=== PATIENT | male | born 1935 | race Caucasian/White ===

== ENCOUNTER 2016-07-17 | Emergency (ER) | payer OTHER ==
[~2016-07-17] VITALS: Ht 177.8 cm; Wt 97.3 kg
[~2016-07-17] MED LIST: ACET1TAB84 PO; ASPEC81 PO; CMD5 PO; LISI-729 PO; MAGN400T6 PO; METO50TA16 PO; PANT40TA PO
[2016-07-17 00:04] VITALS: TEMP 36.7; Ht 177.8 cm; Wt 97.3 kg
[2016-07-17] MEDS ORDERED: XYLOCAINE 1%/SOD BICARB 20 ML VIAL INFIL ONE (00:30)
[2016-07-17 01:29] VITALS: BP 134/77; PULSE 79; O2SAT 97
--- NOTE | 2016-07-17 01:32 | EMERGENCY ROOM VISIT NOTE ---
ED Visit Note First contact with patient: 00:08 Chief Complaint: LEFT Wrist Laceration History of Present Illness: This patient is a 81-year-old male who presents to the Emergency Department with his for evaluation of their wrist laceration. Patient sustained the laceration while talking to catch a glass that was falling. The glass shattered causing laceration to his wrist. They report a moderate amount of bleeding initially. Patient takes Coumadin daily for diagnosis of atrial fibrillation. They deny any numbness or tingling into the distal extremity. They have tried nothing for the pain. Patient rates his current discomfort as a 0/10. Patient's Tetanus status is currently up-to-date. Medications: Reviewed and discussed with the patient. Allergies: No known allergies. PMH: No pertinent past medical history. SHx: Patient is a 81-year-old male who lives locally with his . ROS: All pertinent positive and negative review of systems are appropriately documented in the History of Present Illness. Physical Exam: VITAL SIGNS - Vital signs and nursing notes were reviewed. GENERAL - 81-year-old male appearing his stated age who is in no acute distress. Communicates well with provider and answers questions appropriately. SKIN - There is a 3.0 cm long laceration noted to the distal LEFT wrist. The edges gape apart with traction. No foreign bodies appreciated. Upon further examination there are no deep structures including vessel, tendon, or bony structures appreciated. There is mild active bleeding noted. MUSCULOSKELETAL -full range of motion of the LEFT wrist, hand, and fingers appreciated with +5/5 laser cutter strength appreciated bilaterally. NEUROLOGIC - Spinothalamic tract was found to be intact with ability to discriminate sharp versus dull sensation. No sensory defects of the dorsal column were appreciated utilizing light touch for evaluation. VASCULAR - Capillary refill was brisk. ED Course: Patient was seen and evaluated by myself. Costs and benefits of performing primary wound closure versus no repair were discussed with the patient who verbalizes understanding. Verbal consent was obtained prior to performing the procedure. 2.0 cc of percent buffered lidocaine was used to anesthetize the LEFT wrist laceration. The wound was cleansed and prepped in the typical sterile fashion utilizing normal saline and Betadine. The wound was sterilely draped. Once proper anesthetization was established, the wound was further examined and demonstrated a full-thickness laceration without extension to deep structures. The wound was copiously irrigated with normal saline and Betadine. The wound was closed using 7 simple, 5-0 nylon sutures with the wound edges being well approximated. Patient tolerated the procedure well. No complications were met. The wound was cleansed and dressed with a Bacitracin dressing. Patient educated on worrisome symptoms for return visit to the Emergency Department. Patient discharged to home in good condition. Impression: LEFT Wrist Laceration Discharge Instructions: You have received 7 sutures on your LEFT Wrist. These sutures are NOT dissolvable and WILL need to be removed by a health care provider in 10-12 days. You can return to the Emergency Department or contact your Primary Care Provider to have the sutures removed. Proper wound care is essential for adequate wound healing and infection prevention. You can shower and clean the wound with soap and water. Do not scour over the wound, pat dry with a towel. Do not submerse the wound (i.e. bathe or dish wash) until the sutures have been removed. You can use an antibiotic ointment with a dressing over the wound for the next 3-4 days. After this time you may leave the wound dry and open to the air. If crust develops over the wound you can use a Q-tip to apply a 1:1 peroxide:water solution to clean the wound. Look for signs of infection of the wound including: increased pain, swelling, foul discharge, streaking, or increased temperature. If any of these are noticed you should return to the Emergency Department for further assessment and treatment. As with any laceration you may have received nerve damage to the surrounding tissues. This damage may or may not be permanent. You should keep the area covered with sunscreen for the first 6 months to 1 year when at risk for exposure to help minimize scarring. You can also use scar reducing creams or Vitamin E oil to help minimize scarring. For pain control, you can use the following [id number] medicines (if >12 yo): - Regular strength (325mg/tab) Tylenol (acetaminophen) 2 tabs every 4-6 hours as needed. Do not exceed 12 tablets in a 24 hour period. Avoid taking more than 4 grams (4000 mg) of Tylenol per day. This includes any other sources of acetaminophen you may take on a regular basis. - Regular strength (200 mg/tab) Advil (ibuprofen) 1-2 tabs every 4-6 hours as needed. Do not exceed a dose of 3200 mg per day. Return to the emergency department if your symptoms worsen despite treatment course outlined above. Current/Historical Medications Scheduled Aspirin Enteric Coated (Ecotrin Or Generic *), 81 MG PO DAILY Lisinopril (Zestril), 5 MG PO DAILY Magnesium Oxide (Mag-Ox), 400 MG PO DAILY Metoprolol Tartrate (Lopressor) (Lopressor), 75 MG PO QAM Metoprolol Tartrate (Lopressor) (Lopressor), 50 MG PO QPM Pantoprazole (Protonix), 40 MG PO BID Warfarin Sod (Coumadin *), 5 MG PO UD Scheduled PRN Acetaminophen (Tylenol Arthritis Ext Rel), 650 MG PO Q8H PRN for Pain Allergies Coded Allergies: No Known Allergies (Verified Allergy, Unknown, 03/01/06) Vital Signs Date Time Temp Pulse Resp B/P Pulse Ox O2 Delivery O2 Flow Rate FiO2 07/17/16 01:29 79 16 134/77 97 Room Air 07/17/16 00:04 36.7 84 18 164/93 100 Room Air Departure Information Impression Primary Impression: Laceration of wrist Dispostion Home / Self-Care Condition GOOD Referrals Atul Nance M.D. (PCP) Patient Instructions [facility] Additional Instructions You have received 7 sutures on your LEFT Wrist. These sutures are NOT dissolvable and WILL need to be removed by a health care provider in 10-12 days. You can return to the Emergency Department or contact your Primary Care Provider to have the sutures removed. Proper wound care is essential for adequate wound healing and infection prevention. You can shower and clean the wound with soap and water. Do not scour over the wound, pat dry with a towel. Do not submerse the wound (i.e. bathe or dish wash) until the sutures have been removed. You can use an antibiotic ointment with a dressing over the wound for the next 3-4 days. After this time you may leave the wound dry and open to the air. If crust develops over the wound you can use a Q-tip to apply a 1:1 peroxide:water solution to clean the wound. Look for signs of infection of the wound including: increased pain, swelling, foul discharge, streaking, or increased temperature. If any of these are noticed you should return to the Emergency Department for further assessment and treatment. As with any laceration you may have received nerve damage to the surrounding tissues. This damage may or may not be permanent. You should keep the area covered with sunscreen for the first 6 months to 1 year when at risk for exposure to help minimize scarring. You can also use scar reducing creams or Vitamin E oil to help minimize scarring. For pain control, you can use the following [id number] medicines (if >12 yo): - Regular strength (325mg/tab) Tylenol (acetaminophen) 2 tabs every 4-6 hours as needed. Do not exceed 12 tablets in a 24 hour period. Avoid taking more than 4 grams (4000 mg) of Tylenol per day. This includes any other sources of acetaminophen you may take on a regular basis. - Regular strength (200 mg/tab) Advil (ibuprofen) 1-2 tabs every 4-6 hours as needed. Do not exceed a dose of 3200 mg per day. Return to the emergency department if your symptoms worsen despite treatment course outlined above. Problem Qualifiers Primary Impression: Laceration of wrist Encounter type: initial encounter Laterality: left Qualified Codes: S61.512A - Laceration without foreign body of left wrist, initial encounter
== END 2016-07-17 01:35 | disposition home or self-care (01) ==
LOC: C.EDB 00:01 → C.EDA 01:35
DX: S61.512A Laceration without foreign body of left wrist, initial encounter (principal); X58.XXXA Exposure to other specified factors, initial encounter

== ENCOUNTER 2016-07-28 08:31 | Emergency (ER) | payer OTHER ==
[~2016-07-28] VITALS: Ht 177.8 cm; Wt 97.7 kg
[2016-07-28 08:37] VITALS: TEMP 36.6; Ht 177.8 cm; Wt 97.7 kg
[2016-07-28 08:56] VITALS: O2SAT 95
[2016-07-28] MEDS ORDERED: SIMV20TA2 PO (09:07)
[2016-07-28] MEDS ORDERED: MULT-506 PO (09:07)
[2016-07-28] MEDS ORDERED: ALLO100T PO (09:07)
[2016-07-28] MEDS ORDERED: ASPI81TA28 PO (09:07)
[2016-07-28] MEDS ORDERED: FURO-85 PO (09:13)
[2016-07-28] MEDS ORDERED: POTA10CA28 PO (09:13)
[2016-07-28] MEDS ORDERED: LISI5TAB PO (09:13)
[2016-07-28] MEDS ORDERED: WARF2.5T8 PO (09:19)
[2016-07-28] MEDS ORDERED: WARF5TAB7 PO (09:19)
[2016-07-28 09:23] LABS: BASO % 0.3 %; BASO ABS # 0.03 K/uL (0-0.2); COMPLETE YES; EOS % 1.2 %; HEMATOCRIT 43.6 % (42-52); LYMPH % 25.3 %; LYMPH ABS # 2.45 K/uL (1.2-3.4); MEAN CELL VOLUME 97.3 fL (80-100); MEAN CORPUSCULAR HGB CONC 33.9 g/dl (32-36); MONO % 9.1 %; NEUT % 62.1 %; PLATELET COUNT 182 K/uL (130-400); RED BLOOD COUNT 4.48 M/uL (4.7-6.1); WHITE BLOOD COUNT 9.68 K/uL (4.8-10.8)
--- NOTE | 2016-07-28 09:27 | EMERGENCY ROOM VISIT NOTE ---
History Report prepared by Sabina: Simone Glasgow Under the Supervision of: Dr. Ingris Houston D.O. First contact with patient: 08:53 Chief Complaint: ABDOMINAL PAIN Stated Complaint: ABD. PAIN AND CHEST PAIN Nursing Triage Summary: PT VERBALIZES LAST WEEK HE DEVELOPED A DULL PERSISTENT PAIN IN RIGHT FLANK, THIS MORNING AT 0600 PT C/O BILATERAL ABDOMINAL PAIN 8/10 AND FEELING LIKE HE CAN FEEL HIS HEART BEATING. PT REPORTS HX OF ATRIAL FIBRILLATION. History of Present Illness The patient is a 81 year old male who presents to the Emergency Room with complaints of persistent abdominal pain beginning about 1 week ago. He notes last week he developed a dull constant pain on his right side that worsened with twisting. This morning around 0230, he woke up with cramps in his abdomen. He went to the bathroom and had a normal bowel movement, though is unsure if there was blood in the stool. He woke again about an hour later, and reports being able to "feel his heartbeat in the epigastric area," and also had pain in his mid back and rectum at this time. The patient reports a history of a right hemicolectomy in October of 2012 due to diverticulitis, and had sever post- operative ileus. He indicates that his current pain feels like his diverticulitis pain. He denies any urinary symptoms or nausea. He reports eating a salad last night with some tomatoes. Source of History: patient Onset: about 1 week ago Position: abdomen Quality: dull, cramping Timing: other (persistent) Modifying Factors (Worsening): movement (twisting) Associated Symptoms: + back pain, No nausea, No urinary symptoms Review of Systems See HPI for pertinent positives & negatives. A total of 10 systems reviewed and were otherwise negative. Past Medical & Surgical Medical Problems: (1) History of atrial fibrillation (2) History of blood clots (3) History of heart disease (4) History of hypertension (5) History of kidney stones (6) History of shoulder arthroplasty (7) History of thoracic lung nodule Surgical Problems: (1) History of appendectomy (2) History of thoracotomy (3) History of tonsillectomy Family History Cancer Diabetes mellitus Gallbladder disease Heart disease Hypertension Kidney disease Kidney stones Lung disease Social History Smoking Status: Former Smoker Smokeless Tobacco Use: No Alcohol Use: occasionally Drug Use: none Marital Status: Housing Status: lives with significant other Occupation Status: retired Current/Historical Medications Scheduled Allopurinol (Zyloprim), 100 MG PO QAM Aspirin (Aspirin Ec), 81 MG PO QPM Lisinopril (Prinivil), 5 MG PO QAM Magnesium Oxide (Mag-Ox), 400 MG PO DAILY Metoprolol Tartrate (Lopressor) (Lopressor), 75 MG PO QAM Metoprolol Tartrate (Lopressor) (Lopressor), 50 MG PO QPM Multivitamin (Multivitamin), 1 TAB PO DAILY Pantoprazole (Protonix), 40 MG PO BID Potassium Chloride (Micro-K Ext Rel), 10 MEQ PO DAILY Simvastatin (Zocor), 20 MG PO QPM Warfarin Sod (Jantoven), 5 MG PO 6XWK Warfarin Sod (Jantoven), 2.5 MG PO WK Scheduled PRN Furosemide (Lasix), 20 MG PO DAILY PRN for WATER RETENTION Allergies Coded Allergies: No Known Allergies (Verified , 07/28/16) Physical Exam Vital Signs Date Time Temp Pulse Resp B/P Pulse Ox O2 Delivery O2 Flow Rate FiO2 07/28/16 13:09 81 18 140/98 94 Room Air 07/28/16 10:59 92 20 168/95 96 Room Air 07/28/16 08:56 95 Room Air 07/28/16 08:37 36.6 92 20 124/61 95 Room Air Physical Exam HEENT: Head - normocephalic and atraumatic Pupils are equal, round, and reactive to light. Extraocular eye muscles are intact, and sclera are anicteric. Nose - moist nasal mucosa without discharge. Mouth - moist buccal mucosa. Oropharynx is nonerythematous and there is no tonsillar exudate or edema noted. Neck: Supple; no JVD, nuchal rigidity, cervical lymphadenopathy, or auscultated bruits. Heart: Regular rate and rhythm. There is a normal S1 and S2 with no murmurs, clicks, or gallops appreciated. Lungs: Clear to auscultation bilaterally with no wheezes, rales, or rhonchi. Abdomen: Soft. Diffuse pain with palpation, mostly concentrated in the left lower quadrant. Nondistended, with good bowel sounds. There are no palpable pulsatile masses or hepatosplenomegaly. There is no guarding, rigidity, or rebound noted. Extremities: No evidence of cyanosis, clubbing, or edema. There are easily palpable peripheral pulses. Skin: warm and dry with good turgor and no rashes. Rectal: Brown stool, heme negative. Medical Decision & Procedures ER Provider Diagnostic Interpretation: Radiology results as stated below per my review and the radiologist's interpretation: CT OF THE ABDOMEN AND PELVIS WITH CONTRAST FINDINGS: Visualized portions of the lower chest demonstrate a right lower lobectomy. There is moderate cardiomegaly and extensive coronary artery calcification. No pneumatosis, free air or portal venous gas is present. Liver is somewhat dysmorphic. Note is made of a 4.6 cm hyperdense focus within the medial segment of the left lobe. The right lobe is atrophic. The gallbladder is contracted and contains small stones. The spleen, adrenal glands, pancreas and kidneys are unremarkable. There is an 8 mm cyst within the midpole of the left kidney. There is no hydronephrosis. There is evidence for a right colon resection. There is no evidence for a bowel obstruction. Left colon diverticulosis is noted without evidence for acute diverticulitis. A small fat-containing ventral hernias noted. There is a ventral mesh. The prostate is surgically absent. No suspicious osseous lesions are present. Note is made of apparent gastric wall thickening. This could be due to underdistention. IMPRESSION: 1. Colonic diverticulosis without evidence for acute diverticulitis. Status post right hemicolectomy. No bowel obstruction. 2. Wall thickening of the stomach. This is nonspecific and could be due to underdistention although gastritis could appear similar. 3. Cholelithiasis. No CT evidence of acute cholecystitis. 4. 4.6 cm hyperdense focus within the medial segment of the liver. This may reflect fatty sparing. A mass is considered less likely however a follow-up nonemergent MRI of the liver is recommended. 5. Moderate cardiomegaly and extensive coronary artery calcification. Electronically signed by: Renzo Whiting M.D. 07/28/2016 12:20 PM Dictated Date/Time: 07/28/2016 12:08 PM Laboratory Results 07/28/16 08:50 Red Blood Count 4.48, Mean Corpuscular Volume 97.3, Mean Corpuscular Hemoglobin 33.0, Mean Corpuscular Hemoglobin Concent 33.9, Mean Platelet Volume 12.0, Neutrophils (%) (Auto) 62.1, Lymphocytes (%) (Auto) 25.3, Monocytes (%) (Auto) 9.1, Eosinophils (%) (Auto) 1.2, Basophils (%) (Auto) 0.3, Neutrophils # (Auto) 6.01, Lymphocytes # (Auto) 2.45, Monocytes # (Auto) 0.88, Eosinophils # (Auto) 0.12, Basophils # (Auto) 0.03 07/28/16 08:50 Test 07/28/16 08:50 07/28/16 09:27 White Blood Count 9.68 K/uL (4.8-10.8) Red Blood Count 4.48 M/uL (4.7-6.1) Hemoglobin 14.8 g/dL (14.0-18.0) Hematocrit 43.6 % (42-52) Mean Corpuscular Volume 97.3 fL (80-100) Mean Corpuscular Hemoglobin 33.0 pg (25-34) Mean Corpuscular Hemoglobin Concent 33.9 g/dl (32-36) Platelet Count 182 K/uL (130-400) Mean Platelet Volume 12.0 fL (7.4-10.4) Neutrophils (%) (Auto) 62.1 % Lymphocytes (%) (Auto) 25.3 % Monocytes (%) (Auto) 9.1 % Eosinophils (%) (Auto) 1.2 % Basophils (%) (Auto) 0.3 % Neutrophils # (Auto) 6.01 K/uL (1.4-6.5) Lymphocytes # (Auto) 2.45 K/uL (1.2-3.4) Monocytes # (Auto) 0.88 K/uL (0.11-0.59) Eosinophils # (Auto) 0.12 K/uL (0-0.5) Basophils # (Auto) 0.03 K/uL (0-0.2) RDW Standard Deviation 50.0 fL (36.4-46.3) RDW Coefficient of Variation 14.0 % (11.5-14.5) Immature Granulocyte % (Auto) 2.0 % Immature Granulocyte # (Auto) 0.19 K/uL (0.00-0.02) Prothrombin Time 30.8 SECONDS (9.0-12.0) Prothromb Time International Ratio 2.8 (0.9-1.1) Activated Partial Thromboplast Time 38.3 SECONDS (21.0-31.0) Partial Thromboplastin Ratio 1.5 Anion Gap 8.0 mmol/L (3-11) Est Creatinine Clear Calc Drug Dose 73.1 ml/min Estimated GFR () 86.8 Estimated GFR (Non- 74.9 BUN/Creatinine Ratio 25.9 (10-20) Calcium Level 8.6 mg/dl (8.5-10.1) Total Bilirubin 0.7 mg/dl (0.2-1) Direct Bilirubin 0.2 mg/dl (0-0.2) Aspartate Amino Transf (AST/SGOT) 52 U/L (15-37) Alanine Aminotransferase (ALT/SGPT) 37 U/L (12-78) Alkaline Phosphatase 53 U/L (45-117) Total Protein 7.0 gm/dl (6.4-8.2) Albumin 3.9 gm/dl (3.4-5.0) Urine Color YELLOW Urine Appearance CLEAR (CLEAR) Urine pH 6.5 (4.5-7.5) Urine Specific [place] 1.021 (1.000-1.030) Urine Protein NEG (NEG) Urine Glucose (UA) NEG (NEG) Urine Ketones NEG (NEG) Urine Occult Blood NEG (NEG) Urine Nitrite NEG (NEG) Urine Bilirubin NEG (NEG) Urine Urobilinogen NEG (NEG) Urine Leukocyte Esterase NEG (NEG) Laboratory results per my review. Medications Administered Medications (Trade) Dose Ordered Sig/Jodie Route Start Time Stop Time Status Last Admin Dose Admin Sodium Chloride (Nss 500ml) 500 ml @ 999 mls/hr Q31M STAT IV 07/28/16 12:25 07/28/16 12:55 DC 07/28/16 12:29 999 MLS/HR Procedure Medications Ordered: 1225: Ordered NSS 500 ml @ 999 mls/hr IV. ECG Indication: abdominal pain Rate (beats per minute): 95 Rhythm: atrial fibrillation Findings: no acute ischemic change, no ectopy ED Course 0903: Past medical records reviewed. The patient was evaluated in room B8. A complete history and physical exam was performed. An IV lock was initiated and labs are drones above. A twelve-lead EKG was obtained as described above. 1045: The patient declines wanting anything for pain. 1052: I reassessed the patient. He feels good, and is almost finished with the CT prep. 1225: Ordered NSS 500 ml @ 999 mls/hr IV. The patient went for CT scan as described above. 1230: I reassessed the patient and he feel much better. He had a bowel movement after the oral contrast. 1240: Upon reevaluation, the patient is doing well. I discussed findings and results with the patient. He verbalized agreement of the treatment plan. The patient was discharged home. Medical Decision The patient is a 81 year old male who presents to the Emergency Room with complaints of persistent abdominal pain beginning about 1 week ago. Differential Diagnoses: Diverticulitis, colitis, ureteral colic, pyelonephritis , cystitis, aortic dissection, ileus, and small bowel obstruction. Laboratory Interpretations: UA is clear; BUN is 25; creatinine is 0.9; glucose is 118; normal LFTs; no leukocytosis; stable H&H; INR is 2.8. Patient presents to the emergency department with crampy abdominal pain. CT scan was unremarkable. The patient seemed to have some relief of the discomfort after multiple bowel movements from the prep. However, the patient did state that he did pass some blood and thought that may be secondary to hemorrhoid. I may have irritated hemorrhoid when I did his rectal exam. I've asked the patient to take a bland diet and rest over the next couple of days. He admits that he drinks a moderate amount of wine and asked if he should stop this. I did splint him that his AST was slightly elevated and that he should probably drink a little less wine. He was told to take a bland diet and follow-up with his PCP with regards to some findings on CT scan. Impression Primary Impression: Diffuse abdominal pain Scribe Attestation The scribe's documentation has been prepared under my direction and personally reviewed by me in its entirety. I confirm that the note above accurately reflects all work, treatment, procedures, and medical decision making performed by me. Departure Information Dispostion Home / Self-Care Referrals Atul Nance M.D. (PCP) Patient Instructions [facility] Additional Instructions Rest Take a bland diet. Limit the wine as directed. Return to the ER if symptoms worsen. Follow up with PCP if symptoms persist You will need follow up for findings in the liver
[2016-07-28 09:30] LABS: BUN/CREATININE RATIO 25.9 (10-20); CALCIUM 8.6 mg/dl (8.5-10.1); CREATININE 0.96 mg/dl (0.60-1.40); POTASSIUM 4.5 mmol/L (3.5-5.1)
[2016-07-28 09:46] LABS: URINE APPEARANCE CLEAR (CLEAR); URINE BILIRUBIN NEG (NEG); URINE COLOR YELLOW; URINE NITRITE NEG (NEG); URINE PH 6.5 (4.5-7.5); URINE SPECIFIC GRAVITY 1.021 (1.000-1.030); UROBILINOGEN NEG (NEG)
[2016-07-28 09:49] LABS: MANUAL MICROSCOPIC REQUIRED? NO; REVIEW REQ? NO
[2016-07-28] MEDS ORDERED: OPTIRAY 320 IV PRN (10:00)
[2016-07-28 11:06] LABS: INR 2.8 (0.9-1.1); PARTIAL THROMBOPLASTIN RATIO 1.5; PROTHROMBIN TIME (PATIENT) 30.8 SECONDS (9.0-12.0)
--- NOTE | 2016-07-28 12:22 | DIAGNOSTIC IMAGING REPORT ---
CT OF THE ABDOMEN AND PELVIS WITH CONTRAST CLINICAL HISTORY: Left-sided abdominal pain. Evaluate for diverticulitis. COMPARISON STUDY: PET/CT June 04, 2006. TECHNIQUE: Following IV administration of 94 mL of Optiray-320, axial images of the abdomen and pelvis were obtained from the lung bases to the proximal femurs. Images were reviewed in the axial, sagittal, and coronal planes. IV contrast was administered without complication. CT DOSE: 1018.63 mGy.cm FINDINGS: Visualized portions of the lower chest demonstrate a right lower lobectomy. There is moderate cardiomegaly and extensive coronary artery calcification. No pneumatosis, free air or portal venous gas is present. Liver is somewhat dysmorphic. Note is made of a 4.6 cm hyperdense focus within the medial segment of the left lobe. The right lobe is atrophic. The gallbladder is contracted and contains small stones. The spleen, adrenal glands, pancreas and kidneys are unremarkable. There is an 8 mm cyst within the midpole of the left kidney. There is no hydronephrosis. There is evidence for a right colon resection. There is no evidence for a bowel obstruction. Left colon diverticulosis is noted without evidence for acute diverticulitis. A small fat-containing ventral hernias noted. There is a ventral mesh. The prostate is surgically absent. No suspicious osseous lesions are present. Note is made of apparent gastric wall thickening. This could be due to underdistention. IMPRESSION: 1. Colonic diverticulosis without evidence for acute diverticulitis. Status post right hemicolectomy. No bowel obstruction. 2. Wall thickening of the stomach. This is nonspecific and could be due to underdistention although gastritis could appear similar. 3. Cholelithiasis. No CT evidence of acute cholecystitis. 4. 4.6 cm hyperdense focus within the medial segment of the liver. This may reflect fatty sparing. A mass is considered less likely however a follow-up nonemergent MRI of the liver is recommended. 5. Moderate cardiomegaly and extensive coronary artery calcification. Electronically signed by: Renzo Whiting M.D. 07/28/2016 12:20 PM Dictated Date/Time: 07/28/2016 12:08 PM
[2016-07-28] MEDS ORDERED: SODIUM CHLORIDE 0.9% 500ML 500 ML IV STA (12:25)
[2016-07-28 13:09] VITALS: BP 140/98; PULSE 81; O2SAT 94
== END 2016-07-28 13:10 | disposition home or self-care (01) ==
LOC: C.EDB 08:33
DX: R10.30 Lower abdominal pain, unspecified (principal); I48.91 Unspecified atrial fibrillation; I10 Essential (primary) hypertension; I51.9 Heart disease, unspecified; Z87.440 Personal history of urinary (tract) infections; Z86.2 Personal history of diseases of the blood and blood-forming organs and certain disorders involving the immune mechanism; Z98.890 Other specified postprocedural states; Z87.891 Personal history of nicotine dependence; Z79.82 Long term (current) use of aspirin; Z79.01 Long term (current) use of anticoagulants; Z79.899 Other long term (current) drug therapy; Z80.9 Family history of malignant neoplasm, unspecified; Z83.3 Family history of diabetes mellitus; Z83.79 Family history of other diseases of the digestive system; Z82.49 Family history of ischemic heart disease and other diseases of the circulatory system; Z84.1 Family history of disorders of kidney and ureter

== ENCOUNTER 2018-06-04 11:17 | Inpatient (IN) ==
[2018-06-04] MEDS ORDERED: ALBUT/IPRATROP 3MG/0.5MG NEB 3 ML VIAL INH STA (11:47)
[2018-06-04] MEDS ORDERED: SODIUM CHLORIDE 0.9% 500 ML IV SCH (12:00)
[2018-06-04 12:57] LABS: Hematocrit (blood only) 23.3 % (42-52); Hemoglobin 8.1 g/dL (14.0-18.0); Mean Corpuscular Hgb Conc 34.8 g/dL (32-36); Mean Corpuscular Volume 99.1 fL (80-100); Nucleated RBC # (auto) 0.02 K/uL (0-0); Platelet Count 290 K/uL (130-400); RDW Coefficient of Variation 17.4 % (11.5-14.5); RDW Standard Deviation 60.6 fL (36.4-46.3); Red Blood Count 2.35 M/uL (4.7-6.1); White Blood Count 2.02 K/uL (4.8-10.8)
[2018-06-04 13:03] LABS: Albumin Level 2.8 gm/dl (3.4-5.0); BUN Creatinine Ratio 16.7 (10-20); Creatinine Clr Calc Pharmacy 86.8 ml/min; Est GFR (African American) 97.8; Est GFR (Non-African American) 84.4; Magnesium 1.9 mg/dl (1.8-2.4)
[2018-06-04 13:04] LABS: iSTAT Creatinine 0.8 mg/dl (0.6-1.3); iSTAT Hemoglobin 6.8 g/dl (14.0-18.0); iSTAT Ionized Calcium 1.12 mmol/l (1.12-1.32)
[2018-06-04 13:07] LABS: Partial Thromboplastin Ratio 1.6; Partial Thromboplastin Time 44.7 Seconds (21.0-31.0); Prothrombin Time 44.5 Seconds (9.0-12.0)
[2018-06-04 13:08] LABS: Albumin Globulin Ratio 0.7 (0.9-2); Bilirubin,Total 0.9 mg/dl (0.2-1); Globulin 4.2 gm/dl (2.5-4.0); Troponin I 0.017 ng/ml (0-0.045)
[2018-06-04 13:11] LABS: Base Excess VBG 0.2 mEq/L; HCO3 VBG 25 mmol/L; PCO2 VBG 40 mmHg (38-50); PO2 VBG 22 mmHg; pH VBG 7.41 (7.36-7.41)
[2018-06-04 13:15] LABS: Oxygen Saturation VBG < 60.0 %
[2018-06-04 13:18] LABS: D Dimer 560 ug/L FEU (0-500); INR 4.9 (0.9-1.1)
[2018-06-04 13:20] LABS: Anisocytosis Present; Hypogranular Neutrophils 1+; Poikilocytosis Present
[2018-06-04 13:23] LABS: ALC (manual) 1.77 K/uL (1.2-3.4); Lymphocytes # (manual) 1.25 K/uL (1.2-3.4); Lymphocytes % (manual) 61.9 %; Monocytes # (manual) 0.16 K/uL (0.11-0.59); Neutrophils % (manual) 4.4 %; Reactive Lymphocytes # (manual) 0.52 K/uL
--- NOTE | 2018-06-04 13:37 | XRay Report ---
XR chest 1V portable CLINICAL HISTORY: 82 years-old Male presenting with Dyspnea. TECHNIQUE: Portable upright AP view of the chest was obtained. COMPARISON: 04/20/[address] from 03/06/2018. FINDINGS: Left subclavian Mediport terminates in the lower SVC. Atherosclerosis of aortic arch. Cardiac silhoue tte moderately enlarged. Elevation of the right hemidiaphragm with postsurgical changes of the right lung base. Added density of the lungs bilaterally and diffusely superimposed on coarse and underlying lung markings. Bronchial wall thickening suggested. Persistent right pleural thickening or small ple ural effusion. New trace left pleural effusion. Degenerative changes of the spine. Right shoulder art hroplasty. Advanced degenerative changes of the left glenohumeral joint. IMPRESSION: 1. Interval development of diffuse added density of the lungs concerning for diffuse infiltrates. Th is may represent cardiogenic or noncardiogenic edema or, less likely, an atypical pneumonia. This lanie ears superimposed on underlying chronic lung disease. 2. Cardiomegaly. 3. Postsurgical changes of right lower lobectomy. Electronically signed by: Raj Mesa M.D. 06/04/2018 1:35 PM
[2018-06-04] MEDS ORDERED: OPTIRAY 320 125ml IV PRN (14:07)
[2018-06-04 14:13] LABS: Appearance Urine Clear (Clear); Bilirubin Urine Negative (Negative); Blood Urine Negative (Negative); Color Urine Yellow; Glucose Urine UA Negative (Negative); Ketones Urine Negative (Negative); Leukocyte Esterase Urine Negative (Negative); Nitrite Urine Negative (Negative); Protein Urine Negative (Negative); Specific Gravity Urine 1.013 (1.000-1.030); Urobilinogen Urine Negative (Negative); pH Urine 6.5 (4.5-7.5)
--- NOTE | 2018-06-04 14:23 | CT Scan Report ---
CT angio chest PE protocol CLINICAL HISTORY: 82 years-old Male presenting with MN ^CTR RM A3 ^+dimer, pink sputum, SOB. TECHNIQUE: Multidetector CT angiography of the chest was performed after administration of intravenou s contrast. 3-D volumetric and/or maximum intensity projection (MIP) images were subsequently reconst ructed for review. IV contrast: 94 mL of Optiray 320. One or more dose lowering techniques were used consistent with the principles of ALARA (as low as reasonably achievable), including automatic exposu re control, mA or kV adjustment to individual patient size, and/or use of iterative reconstruction. COMPARISON: 03/06/2018. CT DOSE (mGy.cm): The estimated cumulative dose is 530.31 mGy.cm. FINDINGS: Ground Operations Crew Member topogram: Right shoulder arthroplasty. Left subclavian Mediport. Elevation of the right hemidia phragm. Pulmonary vasculature: The study is adequate for assessment of the pulmonary vascular tree. No filling defect within the pul monary arteries to suggest embolus. Main pulmonary artery is not enlarged. No flattening of the inter ventricular septum. No intracardiac filling defect. Reflux of contrast into the intrahepatic IVC. Remaining chest: Soft tissues: Normal thyroid and thoracic inlet. Few prominent mediastinal lymph nodes, the largest i n the prevascular and aortopulmonary regions, measuring up to 9 mm. Atherosclerosis of the aorta. Mul tichamber enlargement of the heart. Coronary artery and aortic valve calcification. Small bilateral p leural effusions. The right pleural effusion may be loculated. No pericardial effusion. Cholelithiasi s. Lungs and airways: No pneumothorax. Central airways patent. Postsurgical changes of right lower lobec josefina. Mild diffuse bronchial wall thickening. Pulmonary arteries mildly enlarged relative to adjacent bronchi. Diffuse centrilobular septal thickening. Multifocal patchy predominantly groundglass opacit ies with a peripheral predominance affecting all residual lobes. Prominent mosaic attenuation. Musculoskeletal: Degenerative changes of the spine. Right shoulder arthroplasty. Degenerative changes of the left glenohumeral joint. IMPRESSION: 1. No evidence of pulmonary embolus. 2. Patchy diffuse infiltrates affecting all residual lobes. This is nonspecific appearance with a wi de differential. Differential considerations include an atypical infectious etiology, drug reaction, cardiogenic or noncardiogenic pulmonary edema, or, less likely, metastatic disease. 3. Enlarged pulmonary arteries relative to adjacent bronchi with interlobular septal thickening sugg ests venolymphatic congestion. 4. Bilateral small pleural effusions, likely loculated on the right. 5. Postsurgical changes of right lower lobectomy. 6. Cholelithiasis. Electronically signed by: Raj Mesa M.D. 06/04/2018 2:21 PM
[2018-06-04] MEDS ORDERED: PIPERACILL/TAZOBAC CONSULT ACTIVE PRN ×2 (14:29→19:10)
[2018-06-04] MEDS ORDERED: PIPERACILLIN/TAZOBACTAM 4.5 GM/120 ML BAG IV ONE (14:29)
[2018-06-04] MEDS ORDERED: SODIUM CHLORIDE 0.9% 250 ML IV PRN ×2 (14:29→19:10)
--- NOTE | 2018-06-04 16:04 | History & Physical Report ---
Date of Service June 04, 2018 Assessment & Plan (1) SIRS (systemic inflammatory response syndrome): (2) Acute respiratory failure with hypoxia: This is an 82-year-old male who has a significant past medical history of chronic atrial fibrillation on warfarin, HTN, HLD, gout, Gilman's esophagus, history of right lung adeno CA status post right lower lobe lobectomy in 2007, history of prostate cancer, recently diagnosed MDS s/p decitabine x 2, pancytopenia who presents to [facility] at the recommendation of finishing tunnel operator secondary to low blood count. Refer to HPI for past 3 month course of hospitalization, follow up CT x 2, heme/onc and telemedicine pulmonary consult Upon arrival patient placed on 2 L O2 given saturations 88% hgb outpt 6.9, POC repeat 6.9, repeat CBC 8.1 Transfuse PRBC x 1 ordered CXR/CT scan obtained: Negative for PE, but concerning for diffuse multilobar pulmonary opacities, small bilateral pleural effusions likely loculated on right, enlarged pulmonary arteries concerning for venolymphatic congestion Negative for influenza BNP mildly elevated 2742 Given patient's recent diagnosis of pneumonia back in February he was placed on empiric IV Zosyn ABG, Lactate WNL, procalcitonin pending Patient met SIRS criteria on admission WBC 2.02, RR > 24, HR > 90 Lactate WNL Given Pt hx of MDS/ Afib could explain SIRS; however infection still in differential [employer] IV zosyn given, MRSA swab pending DDX: Infectious pneumonia, infectious/inflammatory pneumonitis, CHF, connective tissue disorder, malignancy, metastatic disease -admit patient to med/surg telemetry -consult pulmonology, given significance of CT scan and interval worsening patient may benefit from bronchoscopy to determine etiology of opacities -continue IV antibiotic zosyn for now until infectious etiology entirely ruled out, blood cultures pending -? CHF component will order IV Lasix 40mg BID for elevated BNP, pulm vasc congestion -Xopenex neb q4hwa and incentive spirometry -echocardiogram in a.m. -supplemental O2 as needed (3) RIOS (dyspnea on exertion): -plan as above, likely multifactorial (4) Ground glass opacity present on imaging of lung: -plan as above (5) Myelodysplastic syndrome: -Follows Dr. Colin hematology oncology will consult hematology given neutropenia ? if candidate for neupogen -Status post decitabine x2 cycles, last given 05/11/18 -Hemoglobin upon arrival 6.9, repeat 8.1 -Transfuse 1 unit PRBC -Monitor CBC closely, neutropenic precautions -Continue Noxafil and acyclovir prophylaxis (6) Neutropenia: -neutropenic precautions -ANC 0.09, follow cbc (7) Chronic atrial fibrillation: -patient mostly rate controlled but slight elevation in HR given underlying process -continue metoprolol and warfarin -INR supra therapeutic, hold warfarin the evening -repeat INR in a.m. -monitor closely on telemetry (8) Hypertension: -blood pressure elevated upon admission -continue lisinopril (9) HLD (hyperlipidemia): -continue crestor (10) Barretts esophagus: -continue PPI (11) DVT prophylaxis: -INR supratherapeutic, 4.9 -Hold Coumadin this evening -Repeat INR in a.m. Disposition: to be determined Follow up: PCP Dr. Nance upon discharge as well as heme/onc Dr. Colin and appropriate follow up with Pulmonology History of Present Illness Chief Complaint: RIOS x 3 months. Primary Care Provider: Atul Nance This is an 82-year-old male who has a significant past medical history of chronic atrial fibrillation on warfarin, HTN, HLD, gout, Gilman's esophagus, history of right lung adeno CA status post right lower lobe lobectomy in 2007, history of prostate cancer, recently diagnosed MDS s/p decitabine x 2, pancytopenia who presents to [facility] at the recommendation of finishing tunnel operator secondary to low blood count. and son at bedside. Patient has been receiving intermittent PRBC transfusion secondary to MDS. Has received 4 in the past month, most recently 2 days ago. Patient was recently confined at [facility] 03/02/18-03/11/19 secondary to PNA treated with IV antibiotics. CT scan at time concerning for patchy groundglass opacities and underlying left lower lobe pneumonia. Treated with IV zosyn and transitioned to IV levaquin and oral augmentin. Completed 10 day course. At that time patient was noted to be neutropenic in which he underwent MDS flow cytometry. He was later subsequently diagnosed with MDS and follows outpatient hematology Dr. Colin. Since diagnosis he had received 2 cycles of decitabine, last given 05/11/18. Further he has been taking daily Augmentin twice a day, acyclovir 400 mg twice a day and Noxafil 300 mg daily for prophylaxis given neutropenia. Unfortunately since February 2018 patient has been experiencing profound dyspnea on exertion which has limited and effected patient's QOL. Gets short of breath with minimal exertion, "like walking to the bathroom." RIOS has progressively been worsening since February. Son notes that usually after receiving 1 unit of PRBC it tends to improve his dyspnea on exertion. He last received transfusion Friday and sx have not improved. He was noted in outpatient setting today to have hgb of 6.9 therefore referred to ED. Including RIOS patient also complaints of intermittent productive cough of pink sputum. He denies fever, chills, sweats, lightheadedness, dizziness, syncope, chest pain, palpitations, shortness of breath at rest, nausea, vomiting, diarrhea, change in bowel or bladder habits. states appetite is very good. Denies any weight loss or gain. Denies any significant swelling. He did trial albuterol inhaler that was prescribed by account executive Dr. Mauricio ([facility]) in which he did note improvement with shortness of breath temporarily. In outpatient setting he has had repeat CT scan given significant PNA in 02/2018. Repeat CT Scan 04/17/18: IMPRESSION: 1. Persistent ground-glass opacities and patchy nodular airspace disease in both lower lung zones, mildly improved in the left lower lobe, and may represent persistent infectious or inflammatory process, such as pneumonia or pneumonitis. 2. Postsurgical changes in the right lung with a new tiny right pleural effusion. 3. Other findings, as above. Repeat 05/16/18 1. Progression of the infectious/inflammatory ground-glass opacity and subpleural nodularity seen in both upper lobes compared to the prior study. The involvement of the lower lobes is about the same. 2. Stable surgical changes from right lower lobectomy. No definite findings for recurrent or metastatic disease. 3. Gallstones. Given progression of lung disease a tele pulm consult [place] [facility] [place] established by outpatient provider Dr. Colin. At that time recommendations were to continue with blood transfusion as ordered. He was also prescribed albuterol inhaler and recommend trial given air trapping noted on CT. Patient started this yesterday and noted improved with inhaler. Recommending scheduling bronchoscopy with brushing and transbronchial biopsy to further evaluate pulmonary opacities. Recommend updating echocardiogram, most recently done 08/2017 which was a negative dobutamine stress echo, normal EF, AV sclerosis and moderate MR and mild TR noted. Allergies Allergy/AdvReac Type Severity Reaction Status Date / Time No Known Allergies Allergy Verified 06/04/18 12:27 Home Medications Home Medications Medication Instructions Recorded Confirmed Type allopurinol 100 mg PO DAILY 03/02/18 06/04/18 History furosemide 20 mg PO DAILY PRN 03/02/18 06/04/18 History lisinopril 5 mg PO DAILY 03/02/18 06/04/18 History magnesium oxide 400 mg PO QAM 03/02/18 06/04/18 History metoprolol tartrate 50 mg PO QPM 03/02/18 06/04/18 History metoprolol tartrate 75 mg PO QAM 03/02/18 06/04/18 History pantoprazole [Protonix] 40 mg PO BID 03/02/18 06/04/18 History potassium chloride 10 meq PO DAILY PRN 03/02/18 06/04/18 History acyclovir 400 mg PO BID 04/15/18 06/04/18 History warfarin 5 mg PO SUMOWETHFR #0 04/20/18 06/04/18 History amoxicillin-pot clavulanate 1 tab PO Q12H 05/21/18 06/04/18 History [Augmentin] posaconazole [Noxafil] 300 mg PO DAILY 05/21/18 06/04/18 History aspirin 81 mg PO DAILY 06/04/18 06/04/18 History decitabine [Dacogen] 50 mg IV DAILY 06/04/18 06/04/18 History rosuvastatin 10 mg PO DAILY 06/04/18 06/04/18 History warfarin 2.5 mg PO TUSA 06/04/18 06/04/18 History Past Med/Surg History Medical History HLD (hyperlipidemia) Myelodysplastic syndrome Recently diagnosed via bone marrow biopsy. Reason for port placement. History of kidney stones (Chronic) 1983 Chronic atrial fibrillation (Chronic) History of prostate cancer (Resolved) Status post prostatectomy History of lung cancer (Resolved) R lung adenocarcinoma T1 N0 M0 status post right lower lobe lobectomy 05/08/07 Barretts esophagus (Chronic) Hypertension (Chronic) History of pneumonia 02/2018 Surgical History History of vitrectomy 3 SURGERIES INCLUDING SCLERAL BUCKLE (LEFT EYE) FOR DETACHED RETINA History of circumcision AN ADULT History of kidney surgery OPEN INCISION FOR LARGE KIDNEY STONE EXTRACTION. H/O umbilical hernia repair (Chronic) S/P lobectomy of lung (Chronic) RLL due to cancer 05/2007 S/P tonsillectomy and adenoidectomy (Chronic) History of appendectomy (Chronic) Status post total shoulder arthroplasty (Chronic) S/P left knee arthroscopy (Chronic) H/O hemicolectomy (Chronic) Due to diverticulitis History of total left knee replacement (Chronic) H/O prostatectomy (Chronic) History of appendectomy (Inactive) History of thoracotomy (Inactive) History of tonsillectomy (Inactive) Family History Other Family history non-contributory Social History Preferred Language: Liberian Communication Ability: Effective Perpetual Inventory Clerk Required: No Beliefs That Will Affect Care: None marital status: Current Living Situation: Spouse current occupational status: retired Other Information That Helps Us Care for You: No Feels Safe at Home: Yes Safety Concerns: Feels Safe At This Time Smoking Status: Former smoker Hx Alcohol Use: No Hx Substance Use: No Review of Systems All systems reviewed & are unremarkable except as noted in HPI & below Physical Exam Vital Signs (Past 24 Hours): Last Vital Signs Temp 36.8 C 06/04/18 11:19 Pulse 98 H 06/04/18 15:31 Resp 24 06/04/18 15:31 BP 145/105 H 06/04/18 15:31 Pulse Ox 90 06/04/18 15:31 Physical Exam: Gen: WD/WN, M, Elderly, NAD, sitting up in bed, pleasant, conversing easily Head: Normocephalic, Atraumatic Eyes: Sclera normal, no conjunctival injection, PERRLA, EOMI ENT: Gross hearing intact, normal pharynx, mucous membranes moist Neck: supple, no adenopathy, No JVD, no bruit, Resp: Clear to auscultation b/l on O2 via NC, minimal bibasilar crackles, no wheeze, rhonchi. Normal insp/exp effort, no accessory muscle use CV: Irregular rate, irregular rhythm, no murmur, rub, gallop, or ectopy Abd: +BS x 4, soft, nontender, nondistended Musculoskeletal: moves extremities active rom x 4, strength intact, good student ambassador strength Extremities:+ 1 pretibial edema b/l Skin: warm, moist, no rash, negative turgor, cap refill < 2sec Neuro: Alert and oriented x 3, speech normal, good mood/affect, cran nerve 2-12 intact grossly : deferred Results & Data Laboratory Results Short CBC 06/04/18 Range/Units 12:33 WBC 2.02 L (4.8-10.8) K/uL Hgb 8.1 L (14.0-18.0) g/dL Hct 23.3 L (42-52) % Plt Count 290 (130-400) K/uL BMP 06/04/18 12:33 Sodium 137 Potassium 4.0 Chloride 105 Carbon Dioxide 27 BUN 13 Creatinine 0.80 Glucose 101 H Calcium 8.0 L Cardiac Enzymes 06/04/18 Range/Units 12:33 Troponin I 0.017 (0-0.045) ng/ml Liver Function 06/04/18 Range/Units 12:33 Total Bilirubin 0.9 (0.2-1) mg/dl AST 45 H (15-37) U/L ALT 63 (12-78) U/L Alkaline Phosphatase 82 (45-117) U/L Albumin 2.8 L (3.4-5.0) gm/dl Urine 06/04/18 Range/Units 14:00 Urine Color Yellow Urine Appearance Clear (Clear) Urine pH 6.5 (4.5-7.5) Ur Specific Longs 1.013 (1.000-1.030) Urine Protein Negative (Negative) Urine Glucose (UA) Negative (Negative) Diagnostic Findings Chest CT: IMPRESSION: 1. No evidence of pulmonary embolus. 2. Patchy diffuse infiltrates affecting all residual lobes. This is nonspecific appearance with a wide differential. Differential considerations include an atypical infectious etiology, drug reaction, cardiogenic or noncardiogenic pulmonary edema, or, less likely, metastatic disease. 3. Enlarged pulmonary arteries relative to adjacent bronchi with interlobular septal thickening suggests venolymphatic congestion. 4. Bilateral small pleural effusions, likely loculated on the right. 5. Postsurgical changes of right lower lobectomy. 6. Cholelithiasis. CXR: IMPRESSION: 1. Interval development of diffuse added density of the lungs concerning for diffuse infiltrates. This may represent cardiogenic or noncardiogenic edema or, less likely, an atypical pneumonia. This appears superimposed on underlying chronic lung disease. 2. Cardiomegaly. 3. Postsurgical changes of right lower lobectomy. Medications Administered Ioversol (Optiray 320 125ml) 94 ml IV ONCE PRN PRN Reason: Interaction Checking Stop: 06/08/18 14:06 Last Admin: 06/04/18 14:08 Dose: 94 ml Documented by: [id number] Discontinued Medications Albuterol (Duoneb) 3 ml INH NOW STA Stop: 06/04/18 11:48 Last Admin: 06/04/18 12:16 Dose: 3 ml Documented by: [id number] Sodium Chloride (Nss) 500 mls @ 999 mls/hr IV .Q31M DENISA Stop: 06/04/18 12:30 Last Infusion: 06/04/18 13:31 Dose: 0 mls/hr Documented by: [id number] Admin: 06/04/18 12:54 Dose: 999 mls/hr Documented by: [id number] Piperacillin Sod/Tazobactam Sod (Zosyn) 4.5 gm in 120 mls @ 240 mls/hr IV NOW ONE Stop: 06/04/18 14:58 Last Infusion: 06/04/18 16:31 Dose: 0 mls/hr Documented by: [id number] Admin: 06/04/18 15:33 Dose: 240 mls/hr Documented by: [id number] ECG Rate (beats per minute): 83 Rhythm: atrial fibrillation Findings: + nonspecific-ST abn and + prolonged QT (458 ms) Code Status & VTE Plan Code Status DNR Discussed with family at bedside VTE Prophylaxis Plan VTE Prophylaxis will be ordered: Yes Reason for no VTE drug order: Contraindicated (Patient already on Coumadin, supratherapeutic) Supervising Physician Co-Signing Physician Notes Patient is an 82-year-old male with multiple comorbidities presents with history of abnormal labs on recommendation by his finishing tunnel operator. Patient complains of worsening dyspnea on exertion. Also reports intermittent productive cough. Please review HPI for complete details of presentation and history. He was noted to have neutropenia, anemia, elevated d-dimer, INR. CT showed no acute PE, findings suggestive of multilobular pulmonary opacities, bilateral pleural effusion-likely loculated on the right side, congestion. On exam patient is moderately built and nourished, no distress, lungs-decreased breath sounds on right side, scattered rails bilaterally, irregularly irregular rhythm, no murmur, abdomen is soft,+ umbilical hernia,AAOX3, no focal deficits, 2+ bilateral lower extremity edema. Patient's shortness of breath could be multifactorial secondary to volume overload, could have underlying pneumonitis, anemia, metastatic disease given history of lung cancer. Patient is admitted under telemetry unit. Plan to give IV dye diuretics, nebs, supplemental oxygen as needed, check echo, pulmonary consulted. Empirically cover with antibiotics given neutropenia. Transfuse PRBC as needed. Replace magnesium. I personally reviewed the record. Patient is interviewed and examined at bedside. Patient's care is coordinated with Deana Del Valle PA-C. Please refer to the documentation above for details of patient's presentation and for discussion of other issues. (1) Neutropenia Neutropenia type: other Qualified Code(s): D70.8 - Other neutropenia (2) Hypertension Hypertension type: essential hypertension Qualified Code(s): I10 - Essential (primary) hypertension
[2018-06-04 16:17] LABS: Influenza A virus by PCR Neg for Influ A (Neg); Influenza B virus by PCR Neg for Influ B (Neg)
[2018-06-04] MEDS ORDERED: ONDANSETRON INJ 2 MG/ML 2 ML VIAL IV PRN (19:10)
[2018-06-04] MEDS ORDERED: POLYETHYLENE (MIRALAX) 17 GM PACK PO PRN (19:10)
[2018-06-04] MEDS ORDERED: XOPENEX/ATROVENT 0.63mg/0.5MG NEB COMBO NEB SCH (19:10)
[2018-06-04] MEDS ORDERED: MAGNESIUM HYDROXIDE SUSP 30 ML UDC PO PRN (19:10)
[2018-06-04] MEDS ORDERED: ALUMINUM/MAGNESIUM SUSP 30 ML UDC PO PRN (19:10)
[2018-06-04] MEDS ORDERED: ACETAMINOPHEN 325 MG TAB PO PRN (19:10)
[2018-06-04] MEDS: IPRATROPIUM BROMIDE NEB SOLN 0.02% 2.5 ML VIAL INH SCH (20:00)
[2018-06-04] MEDS: LEVALBUTEROL HCL 0.63 MG/3 ML NEB NEB SCH (20:00)
[2018-06-04] MEDS: FUROSEMIDE 40 MG in SYRINGE 0 ML IV SCH (20:40)
[2018-06-04] MEDS: PANTOprazole 40 MG TAB PO SCH (20:43)
[2018-06-04] MEDS: METOPROLOL TARTRATE 50 MG TAB PO SCH (20:43)
[2018-06-04] MEDS: ACYCLOVIR 200 MG CAP PO SCH (20:43)
[2018-06-04] MEDS ORDERED: MAGNESIUM SULFATE / D5W 1 GM/100 ML BAG IV ONE (21:00)
[2018-06-04] MEDS: PIPERACILLIN/TAZOBACTAM 3.375 GM in DEXTROSE 5% 100 ML IV SCH (23:27)
[2018-06-05] MEDS: PIPERACILLIN/TAZOBACTAM 3.375 GM in DEXTROSE 5% 100 ML IV SCH ×3 (05:53→20:56)
[2018-06-05 06:36] LABS: Hematocrit (blood only) 27.2 % (42-52); Hemoglobin 9.4 g/dL (14.0-18.0); Mean Corpuscular Hgb Conc 34.6 g/dL (32-36); Mean Corpuscular Volume 97.1 fL (80-100); Platelet Count 277 K/uL (130-400); RDW Coefficient of Variation 18.6 % (11.5-14.5); RDW Standard Deviation 63.8 fL (36.4-46.3); White Blood Count 1.89 K/uL (4.8-10.8)
[2018-06-05 06:43] LABS: INR 3.5 (0.9-1.1); Prothrombin Time 32.7 Seconds (9.0-12.0)
--- NOTE | 2018-06-05 06:45 | Emergency Department Note ---
Entered by Dorota Momin acting as a scribe for History of Present Illness General Chief complaint: Referred by Doctor Stated complaint: sob Time Seen by Provider: 06/04/18 11:31 Source: patient History of Present Illness Onset (ago): hour(s) (this morning) Location: chest Pain Consistency: + other (after being referred by Dr. Colin, Oncology) Maximum Pain Intensity: 0 Quality: + other (referred by his oncologist for possible infection) Exacerbated By: + other (walking ) Associated symptoms: + cough (with pink discharge), + shortness of breath (when he walks) and + other (Negative fevers, history of blood clots in his legs or lungs, recent travel) The patient is a 82 year old white male w/ PMHx of right lobectomy, Afib with RVR, DVT prophylaxis, prostate cancer, lung cancer, HTN who presents to the ED after being referred to the ED by his oncologist. He is accompanied by his family who reports they were at Dr. Colin's, Oncology, office this morning for blood work and she recommended the patient go to the ED for further evaluation as she is concerned about and an infection in his blood. The patient reports he becomes very short of breath when he walks. He has a cough with some pink discharge but denies any fevers, history of blood clots in his legs or lungs, recent travel. He is on an antibiotic, antiviral, and antifungal medications (augmentin, aloxafil, and acyclovir). His last chemotherapy treatment was 05/11/18. Home Medications Home Medications Medication Instructions Recorded Confirmed Type allopurinol 100 mg PO DAILY 03/02/18 06/04/18 History furosemide 20 mg PO DAILY PRN 03/02/18 06/04/18 History lisinopril 5 mg PO DAILY 03/02/18 06/04/18 History magnesium oxide 400 mg PO QAM 03/02/18 06/04/18 History metoprolol tartrate 50 mg PO QPM 03/02/18 06/04/18 History metoprolol tartrate 75 mg PO QAM 03/02/18 06/04/18 History pantoprazole [Protonix] 40 mg PO BID 03/02/18 06/04/18 History potassium chloride 10 meq PO DAILY PRN 03/02/18 06/04/18 History acyclovir 400 mg PO BID 04/15/18 06/04/18 History warfarin 5 mg PO SUMOWETHFR #0 04/20/18 06/04/18 History amoxicillin-pot clavulanate 1 tab PO Q12H 05/21/18 06/04/18 History [Augmentin] posaconazole [Noxafil] 300 mg PO DAILY 05/21/18 06/04/18 History aspirin 81 mg PO DAILY 06/04/18 06/04/18 History decitabine [Dacogen] 50 mg IV DAILY 06/04/18 06/04/18 History rosuvastatin 10 mg PO DAILY 06/04/18 06/04/18 History warfarin 2.5 mg PO TUSA 06/04/18 06/04/18 History Allergies Allergy/AdvReac Type Severity Reaction Status Date / Time No Known Allergies Allergy Verified 06/04/18 12:27 Past Med/Surg History Medical History HLD (hyperlipidemia) Myelodysplastic syndrome Recently diagnosed via bone marrow biopsy. Reason for port placement. History of kidney stones (Chronic) 1982 Chronic atrial fibrillation (Chronic) History of prostate cancer (Resolved) Status post prostatectomy History of lung cancer (Resolved) R lung adenocarcinoma T1 N0 M0 status post right lower lobe lobectomy 05/08/07 Barretts esophagus (Chronic) Hypertension (Chronic) History of pneumonia 02/2018 Surgical History History of vitrectomy 3 SURGERIES INCLUDING SCLERAL BUCKLE (LEFT EYE) FOR DETACHED RETINA History of circumcision AN ADULT History of kidney surgery OPEN INCISION FOR LARGE KIDNEY STONE EXTRACTION. H/O umbilical hernia repair (Chronic) S/P lobectomy of lung (Chronic) RLL due to cancer 05/2007 S/P tonsillectomy and adenoidectomy (Chronic) History of appendectomy (Chronic) Status post total shoulder arthroplasty (Chronic) S/P left knee arthroscopy (Chronic) H/O hemicolectomy (Chronic) Due to diverticulitis History of total left knee replacement (Chronic) H/O prostatectomy (Chronic) History of appendectomy (Inactive) History of thoracotomy (Inactive) History of tonsillectomy (Inactive) Family History Other Family history non-contributory Social History Preferred Language: Uruguayan Communication Ability: Effective 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 and A total of 10 systems reviewed and were otherwise negative Physical Exam Vital Signs Vital Signs - 24 hr 06/04/18 11:19 06/04/18 12:13 06/04/18 12:17 Temperature 36.8 C Temperature Source Oral Sepsis Recent Fever Within 48 Hours No Sepsis New/Unexplained Change in Mental Status No Sepsis Action Taken by Nursing No Action Required Pulse Rate 90 78 Pulse Rate [Left Finger] Pulse Rate from SpO2 Sensor 82 Respiratory Rate 20 34 H Respiratory Effort / Characteristics Non-Labored Respiratory Depth Normal Blood Pressure 154/87 H Blood Pressure [Right Arm] Blood Pressure Mean 109 Blood Pressure Mean [Right Arm] Blood Pressure Position Pulse Oximetry 94 90 98 Oxygen Delivery Method Room Air Nebulizer Oxygen Flow Rate 06/04/18 12:20 06/04/18 12:30 06/04/18 12:40 Temperature Temperature Source Sepsis Recent Fever Within 48 Hours Sepsis New/Unexplained Change in Mental Status Sepsis Action Taken by Nursing Pulse Rate 81 95 H 92 H Pulse Rate [Left Finger] Pulse Rate from SpO2 Sensor 76 88 Respiratory Rate 22 24 25 H Respiratory Effort / Characteristics Respiratory Depth Blood Pressure Blood Pressure [Right Arm] Blood Pressure Mean Blood Pressure Mean [Right Arm] Blood Pressure Position Pulse Oximetry 100 94 Oxygen Delivery Method Oxygen Flow Rate 06/04/18 12:50 06/04/18 12:54 06/04/18 13:00 Temperature Temperature Source Sepsis Recent Fever Within 48 Hours Sepsis New/Unexplained Change in Mental Status Sepsis Action Taken by Nursing Pulse Rate 97 H 94 H 82 Pulse Rate [Left Finger] Pulse Rate from SpO2 Sensor 95 H 88 Respiratory Rate 19 23 28 H Respiratory Effort / Characteristics Respiratory Depth Blood Pressure 158/86 H Blood Pressure [Right Arm] Blood Pressure Mean 110 Blood Pressure Mean [Right Arm] Blood Pressure Position Pulse Oximetry 90 91 Oxygen Delivery Method Oxygen Flow Rate 06/04/18 13:01 06/04/18 13:10 06/04/18 13:20 Temperature Temperature Source Sepsis Recent Fever Within 48 Hours Sepsis New/Unexplained Change in Mental Status Sepsis Action Taken by Nursing Pulse Rate 89 100 H 106 H Pulse Rate [Left Finger] Pulse Rate from SpO2 Sensor 83 107 H 101 H Respiratory Rate 28 H 32 H 26 H Respiratory Effort / Characteristics Respiratory Depth Blood Pressure 144/87 H Blood Pressure [Right Arm] Blood Pressure Mean 106 Blood Pressure Mean [Right Arm] Blood Pressure Position Pulse Oximetry 88 L 92 89 L Oxygen Delivery Method Oxygen Flow Rate 06/04/18 13:30 06/04/18 13:32 06/04/18 13:40 Temperature Temperature Source Sepsis Recent Fever Within 48 Hours Sepsis New/Unexplained Change in Mental Status Sepsis Action Taken by Nursing Pulse Rate 97 H 100 H 107 H Pulse Rate [Left Finger] Pulse Rate from SpO2 Sensor 93 H 96 H 101 H Respiratory Rate 30 H 23 25 H Respiratory Effort / Characteristics Respiratory Depth Blood Pressure 134/76 Blood Pressure [Right Arm] Blood Pressure Mean 95 Blood Pressure Mean [Right Arm] Blood Pressure Position Pulse Oximetry 90 87 L 90 Oxygen Delivery Method Oxygen Flow Rate 06/04/18 13:47 06/04/18 13:50 06/04/18 14:13 Temperature Temperature Source Sepsis Recent Fever Within 48 Hours Sepsis New/Unexplained Change in Mental Status Sepsis Action Taken by Nursing Pulse Rate 86 87 Pulse Rate [Left Finger] Pulse Rate from SpO2 Sensor 98 H Respiratory Rate 29 H 29 H Respiratory Effort / Characteristics Respiratory Depth Blood Pressure 175/102 H Blood Pressure [Right Arm] Blood Pressure Mean 126 Blood Pressure Mean [Right Arm] Blood Pressure Position Pulse Oximetry 98 95 Oxygen Delivery Method Room Air Oxygen Flow Rate 2 06/04/18 14:20 06/04/18 14:30 06/04/18 14:31 Temperature Temperature Source Sepsis Recent Fever Within 48 Hours Sepsis New/Unexplained Change in Mental Status Sepsis Action Taken by Nursing Pulse Rate 94 H 90 97 H Pulse Rate [Left Finger] Pulse Rate from SpO2 Sensor 88 86 91 H Respiratory Rate 27 H 28 H 28 H Respiratory Effort / Characteristics Respiratory Depth Blood Pressure 133/84 Blood Pressure [Right Arm] Blood Pressure Mean 100 Blood Pressure Mean [Right Arm] Blood Pressure Position Pulse Oximetry 93 92 98 Oxygen Delivery Method Oxygen Flow Rate 06/04/18 14:40 06/04/18 14:50 06/04/18 15:00 Temperature Temperature Source Sepsis Recent Fever Within 48 Hours Sepsis New/Unexplained Change in Mental Status Sepsis Action Taken by Nursing Pulse Rate 85 89 96 H Pulse Rate [Left Finger] Pulse Rate from SpO2 Sensor 88 89 90 Respiratory Rate 31 H 25 H 25 H Respiratory Effort / Characteristics Respiratory Depth Blood Pressure Blood Pressure [Right Arm] Blood Pressure Mean Blood Pressure Mean [Right Arm] Blood Pressure Position Pulse Oximetry 96 88 L 92 Oxygen Delivery Method Oxygen Flow Rate 06/04/18 15:10 06/04/18 15:31 06/04/18 16:53 Temperature Temperature Source Sepsis Recent Fever Within 48 Hours Sepsis New/Unexplained Change in Mental Status Sepsis Action Taken by Nursing Pulse Rate 96 H 98 H Pulse Rate [Left Finger] Pulse Rate from SpO2 Sensor 96 H 105 H Respiratory Rate 24 24 Respiratory Effort / Characteristics Respiratory Depth Blood Pressure 145/105 H Blood Pressure [Right Arm] Blood Pressure Mean 118 Blood Pressure Mean [Right Arm] Blood Pressure Position Pulse Oximetry 91 90 Oxygen Delivery Method Nasal Cannula Oxygen Flow Rate 2 06/04/18 17:00 06/04/18 17:10 06/04/18 17:31 Temperature Temperature Source Sepsis Recent Fever Within 48 Hours Sepsis New/Unexplained Change in Mental Status Sepsis Action Taken by Nursing Pulse Rate 88 88 81 Pulse Rate [Left Finger] Pulse Rate from SpO2 Sensor 86 91 H 84 Respiratory Rate 29 H 28 H 31 H Respiratory Effort / Characteristics Respiratory Depth Blood Pressure 149/84 H 140/88 Blood Pressure [Right Arm] Blood Pressure Mean 105 105 Blood Pressure Mean [Right Arm] Blood Pressure Position Pulse Oximetry 88 L 96 95 Oxygen Delivery Method Room Air Nasal Cannula Nasal Cannula Oxygen Flow Rate 4 4 06/04/18 18:00 06/04/18 18:40 06/04/18 20:02 Temperature Temperature Source Sepsis Recent Fever Within 48 Hours Sepsis New/Unexplained Change in Mental Status Sepsis Action Taken by Nursing Pulse Rate 91 H 122 H Pulse Rate [Left Finger] 99 H Pulse Rate from SpO2 Sensor 87 Respiratory Rate 28 H 16 Respiratory Effort / Characteristics Non-Labored Spontaneous Respiratory Depth Blood Pressure 126/94 Blood Pressure [Right Arm] Blood Pressure Mean 104 Blood Pressure Mean [Right Arm] Blood Pressure Position Pulse Oximetry 95 96 Oxygen Delivery Method Nasal Cannula Nasal Cannula Nasal Cannula Oxygen Flow Rate 4 4 06/04/18 22:46 06/04/18 23:05 06/04/18 23:25 Temperature 37.2 C 36.5 C 37 C Temperature Source Oral Oral Oral Sepsis Recent Fever Within 48 Hours Sepsis New/Unexplained Change in Mental Status Sepsis Action Taken by Nursing Pulse Rate 87 85 90 Pulse Rate [Left Finger] Pulse Rate from SpO2 Sensor Respiratory Rate 16 18 24 Respiratory Effort / Characteristics Respiratory Depth Blood Pressure 126/81 120/74 125/72 Blood Pressure [Right Arm] Blood Pressure Mean 96 89 89 Blood Pressure Mean [Right Arm] Blood Pressure Position Pulse Oximetry 95 95 92 Oxygen Delivery Method Oxygen Flow Rate 3 1 06/04/18 23:51 06/05/18 00:00 06/05/18 00:51 Temperature 36.8 C 36.7 C Temperature Source Oral Oral Sepsis Recent Fever Within 48 Hours Sepsis New/Unexplained Change in Mental Status Sepsis Action Taken by Nursing Pulse Rate 84 86 Pulse Rate [Left Finger] Pulse Rate from SpO2 Sensor Respiratory Rate 24 18 Respiratory Effort / Characteristics SOB on Exertion Respiratory Depth Blood Pressure 124/76 113/51 L Blood Pressure [Right Arm] Blood Pressure Mean 92 71 Blood Pressure Mean [Right Arm] Blood Pressure Position Lying Pulse Oximetry 93 93 Oxygen Delivery Method Nasal Cannula Oxygen Flow Rate 1 1 06/05/18 01:46 06/05/18 03:34 Temperature 36.8 C 36.3 C L Temperature Source Oral Oral Sepsis Recent Fever Within 48 Hours Sepsis New/Unexplained Change in Mental Status Sepsis Action Taken by Nursing Pulse Rate 86 Pulse Rate [Left Finger] 103 H Pulse Rate from SpO2 Sensor Respiratory Rate 18 17 Respiratory Effort / Characteristics Respiratory Depth Blood Pressure 123/72 Blood Pressure [Right Arm] 134/84 Blood Pressure Mean 89 Blood Pressure Mean [Right Arm] 100 Blood Pressure Position Pulse Oximetry 91 92 Oxygen Delivery Method Oxygen Flow Rate 1 GENERAL: Well appearing, well nourished, NAD, non-toxic. EYE EXAM: Normal conjunctiva. PERRL, no anisocoria and EOM's grossly intact w/o pain OROPHARYNX: Moist MM. NECK: Supple, no nuchal rigidity, no adenopathy, non-tender. No signs of meningismus LUNGS: Clear to auscultation. Normal chest wall mechanics. Decreased breath sounds right base. HEART: NSR, no MRG CHEST: Port in the left chest ABDOMEN: Abdomen soft, non-tender, normo-active bowel sounds, no masses, no rebound or guarding. BACK: No CVA TTP SKIN: No rashes and no bruising. UPPER EXTREMITIES: Upper extremities are grossly normal. LOWER EXTREMITIES: 1 to 2+ LUE edema. No calf pain NEURO EXAM: A and O x3. GCS 15. Course 1140: Past medical records reviewed. The patient was evaluated in room A3, and a complete history and physical examination were performed. 1414: I checked on the patient at this time and discussed their findings. I reviewed the patient's case with [facility] Hospitalist. They will evaluate the patient for further management. Consultations Consultation #1: I reviewed the patient's case with [facility] Hospitalist. They will evaluate the patient for further management. Administered Medications Acyclovir (Zovirax) 400 mg PO BID DENISA Stop: 07/04/18 20:59 Last Admin: 06/04/18 20:43 Dose: 400 mg Documented by: [id number] Furosemide 40 mg/ Syringe 4 mls @ 4 mls/min IV [id number] DENISA Stop: 07/04/18 19:29 Last Admin: 06/04/18 20:40 Dose: 4 mls/min Documented by: [id number] Piperacillin Sod/Tazobactam (Sod 3.375 gm/ Dextrose) 115 mls @ 28.75 mls/hr IV Q8H [facility]; Protocol Stop: 06/11/18 21:59 Last Admin: 06/05/18 05:53 Dose: 28.8 mls/hr Documented by: [id number] Infusion: 06/05/18 03:27 Dose: 0 mls/hr Documented by: [id number] Admin: 06/04/18 23:27 Dose: 28.8 mls/hr Documented by: [id number] Ipratropium [place] (Atrovent 0.02% 0.5mg/2.5ml) 0.5 mg INH Q4RWA DENISA Stop: 07/04/18 19:59 Last Admin: 06/04/18 20:00 Dose: 0.5 mg Documented by: [id number] Levalbuterol HCl (Xopenex 0.63 Mg/3 Ml Neb) 0.63 mg NEB Q4RWA DENISA Stop: 07/04/18 19:59 Last Admin: 06/04/18 20:00 Dose: 0.63 mg Documented by: [id number] Metoprolol Tartrate (Lopressor) 50 mg PO QPM DENISA Stop: 07/04/18 20:59 Last Admin: 06/04/18 20:43 Dose: 50 mg Documented by: [id number] Pantoprazole Sodium (Protonix) 40 mg PO BID DENISA Stop: 07/04/18 20:59 Last Admin: 06/04/18 20:43 Dose: 40 mg Documented by: [id number] Discontinued Medications Albuterol (Duoneb) 3 ml INH NOW STA Stop: 06/04/18 11:48 Last Admin: 06/04/18 12:16 Dose: 3 ml Documented by: [id number] Sodium Chloride (Nss) 500 mls @ 999 mls/hr IV .Q31M DENISA Stop: 06/04/18 12:30 Last Infusion: 06/04/18 13:31 Dose: 0 mls/hr Documented by: [id number] Admin: 06/04/18 12:54 Dose: 999 mls/hr Documented by: [id number] Piperacillin Sod/Tazobactam Sod (Zosyn) 4.5 gm in 120 mls @ 240 mls/hr IV NOW ONE Stop: 06/04/18 14:58 Last Infusion: 06/04/18 16:31 Dose: 0 mls/hr Documented by: [id number] Admin: 06/04/18 15:33 Dose: 240 mls/hr Documented by: [id number] Magnesium Sulfate/Dextrose (Magnesium Sulfate / D5w) 1 gm in 100 mls @ 100 mls/hr IV ONE ONE Stop: 06/04/18 21:59 Last Infusion: 06/04/18 23:28 Dose: 0 mls/hr Documented by: [id number] Admin: 06/04/18 22:15 Dose: 100 mls/hr Documented by: [id number] Ioversol (Optiray 320 125ml) 94 ml IV ONCE PRN PRN Reason: Interaction Checking Stop: 06/08/18 14:06 Last Admin: 06/04/18 14:08 Dose: 94 ml Documented by: [id number] Medical Decision Making Medical Records Attestation: I reviewed the patient's medical records. Home Medications Current Medication List: was personally reviewed by me Laboratory Data Attestation: I reviewed the patient's lab results. Result diagrams: 06/05/18 06:11 06/04/18 12:33 Lab Results 06/04/18 06/04/18 06/04/18 Range/Units 12:33 12:33 12:33 WBC 2.02 L (4.8-10.8) K/uL RBC 2.35 L (4.7-6.1) M/uL Hgb 8.1 L (14.0-18.0) g/dL POC Hgb (14.0-18.0) g/dl Hct 23.3 L (42-52) % POC Hct (42-52) % MCV 99.1 (80-100) fL MCH 34.5 H (25-34) pg MCHC 34.8 (32-36) g/dL RDW Std Deviation 60.6 H (36.4-46.3) fL RDW Coeff of Onelia 17.4 H (11.5-14.5) % Plt Count 290 (130-400) K/uL MPV 10.0 (7.4-10.4) fL Absolute Nucleated RBC 0.02 H (0-0) K/uL Nucleated RBC % (auto) 1.0 % Neutrophils % (Manual) 4.4 % Lymphocytes % (Manual) 61.9 % Reactive Lymphs % (Man) 25.7 % Monocytes % (Manual) 8.0 % Neutrophils # (Manual) 0.09 L (1.4-6.5) K/uL Total Absolute Neuts 0.09 L* (1.4-6.5) K/uL Lymphocytes # (Manual) 1.25 (1.2-3.4) K/uL Reactive Lymphs # 0.52 K/uL Total Abs Lymphocytes 1.77 (1.2-3.4) K/uL Monocytes # (Manual) 0.16 (0.11-0.59) K/uL Hypogranular Neuts 1+ Poikilocytosis Present Anisocytosis Present PT 44.5 H (9.0-12.0) Seconds INR 4.9 H (0.9-1.1) APTT 44.7 H (21.0-31.0) Seconds PTT Ratio 1.6 D-Dimer 560 H* (0-500) ug/L FEU VBG pH (7.36-7.41) VBG pCO2 (38-50) mmHg VBG pO2 mmHg VBG HCO3 mmol/L VBG O2 Saturation % VBG Base Excess mEq/L Barometric Pressure mm/Hg POC Sodium (135-144) mEq/L Sodium 137 (136-145) mmol/L POC Potassium (3.3-5.0) mEq/L Potassium 4.0 (3.5-5.1) mmol/L POC Chloride (101-112) mEq/L Chloride 105 (98-107) mmol/L Carbon Dioxide 27 (21-32) mmol/L POC Total CO2 (24-31) mEq/l Anion Gap 5.0 (3-11) POC Anion Gap (16-25) mmol/L POC BUN (7-18) mg/dl BUN 13 (7-18) mg/dl Creatinine 0.80 (0.6-1.4) mg/dl POC Creatinine (0.6-1.3) mg/dl Est Cr Clr Drug Dosing 86.8 ml/min Est GFR ( Amer) 97.8 Est GFR (Non-Af Amer) 84.4 BUN/Creatinine Ratio 16.7 (10-20) Glucose 101 H (70-99) mg/dl POC Glucose (other) (70-99) mg/dl Lactate (0.4-2.0) mmol/L Calcium 8.0 L (8.5-10.1) mg/dl POC Ioniz Calcium Taran (1.12-1.32) mmol/l Magnesium 1.9 (1.8-2.4) mg/dl Total Bilirubin 0.9 (0.2-1) mg/dl AST 45 H (15-37) U/L ALT 63 (12-78) U/L Alkaline Phosphatase 82 (45-117) U/L Troponin I 0.017 (0-0.045) ng/ml NT-Pro-B Natriuret Pep 2742 H (0-1800) pg/ml Total Protein 7.0 (6.4-8.2) gm/dl Albumin 2.8 L (3.4-5.0) gm/dl Globulin 4.2 H (2.5-4.0) gm/dl Albumin/Globulin Ratio 0.7 L (0.9-2) Procalcitonin (0-0.5) ng/ml Urine Color Urine Appearance (Clear) Urine pH (4.5-7.5) Ur Specific [place] (1.000-1.030) Urine Protein (Negative) Urine Glucose (UA) (Negative) Urine Ketones (Negative) Urine Blood (Negative) Urine Nitrite (Negative) Urine Bilirubin (Negative) Urine Urobilinogen (Negative) Ur Leukocyte Esterase (Negative) Nasal Screen MRSA (PCR) (Negative) Influenza Type A (PCR) (Neg) Influenza Type B (PCR) (Neg) Blood Type Antibody Screen Antibody Identification Crossmatch 06/04/18 06/04/18 06/04/18 Range/Units 12:33 12:38 12:54 WBC (4.8-10.8) K/uL RBC (4.7-6.1) M/uL Hgb (14.0-18.0) g/dL POC Hgb 6.8 L* (14.0-18.0) g/dl Hct (42-52) % POC Hct 20 L* (42-52) % MCV (80-100) fL MCH (25-34) pg MCHC (32-36) g/dL RDW Std Deviation (36.4-46.3) fL RDW Coeff of Onelia (11.5-14.5) % Plt Count (130-400) K/uL MPV (7.4-10.4) fL Absolute Nucleated RBC (0-0) K/uL Nucleated RBC % (auto) % Neutrophils % (Manual) % Lymphocytes % (Manual) % Reactive Lymphs % (Man) % Monocytes % (Manual) % Neutrophils # (Manual) (1.4-6.5) K/uL Total Absolute Neuts (1.4-6.5) K/uL Lymphocytes # (Manual) (1.2-3.4) K/uL Reactive Lymphs # K/uL Total Abs Lymphocytes (1.2-3.4) K/uL Monocytes # (Manual) (0.11-0.59) K/uL Hypogranular Neuts Poikilocytosis Anisocytosis PT (9.0-12.0) Seconds INR (0.9-1.1) APTT (21.0-31.0) Seconds PTT Ratio D-Dimer (0-500) ug/L FEU VBG pH 7.41 (7.36-7.41) VBG pCO2 40 (38-50) mmHg VBG pO2 22 mmHg VBG HCO3 25 mmol/L VBG O2 Saturation < 60.0 % VBG Base Excess 0.2 mEq/L Barometric Pressure 737.4 mm/Hg POC Sodium 139 (135-144) mEq/L Sodium (136-145) mmol/L POC Potassium 4.0 (3.3-5.0) mEq/L Potassium (3.5-5.1) mmol/L POC Chloride 102 (101-112) mEq/L Chloride (98-107) mmol/L Carbon Dioxide (21-32) mmol/L POC Total CO2 28 (24-31) mEq/l Anion Gap (3-11) POC Anion Gap 15.0 L (16-25) mmol/L POC BUN 11 (7-18) mg/dl BUN (7-18) mg/dl Creatinine (0.6-1.4) mg/dl POC Creatinine 0.8 (0.6-1.3) mg/dl Est Cr Clr Drug Dosing ml/min Est GFR ( Amer) Est GFR (Non-Af Amer) BUN/Creatinine Ratio (10-20) Glucose (70-99) mg/dl POC Glucose (other) 101 H (70-99) mg/dl Lactate (0.4-2.0) mmol/L Calcium (8.5-10.1) mg/dl POC Ioniz Calcium Taran 1.12 (1.12-1.32) mmol/l Magnesium (1.8-2.4) mg/dl Total Bilirubin (0.2-1) mg/dl AST (15-37) U/L ALT (12-78) U/L Alkaline Phosphatase (45-117) U/L Troponin I (0-0.045) ng/ml NT-Pro-B Natriuret Pep (0-1800) pg/ml Total Protein (6.4-8.2) gm/dl Albumin (3.4-5.0) gm/dl Globulin (2.5-4.0) gm/dl Albumin/Globulin Ratio (0.9-2) Procalcitonin 0.06 (0-0.5) ng/ml Urine Color Urine Appearance (Clear) Urine pH (4.5-7.5) Ur Specific [place] (1.000-1.030) Urine Protein (Negative) Urine Glucose (UA) (Negative) Urine Ketones (Negative) Urine Blood (Negative) Urine Nitrite (Negative) Urine Bilirubin (Negative) Urine Urobilinogen (Negative) Ur Leukocyte Esterase (Negative) Nasal Screen MRSA (PCR) (Negative) Influenza Type A (PCR) (Neg) Influenza Type B (PCR) (Neg) Blood Type Antibody Screen Antibody Identification Crossmatch 06/04/18 06/04/18 06/04/18 Range/Units 14:00 15:06 15:11 WBC (4.8-10.8) K/uL RBC (4.7-6.1) M/uL Hgb (14.0-18.0) g/dL POC Hgb (14.0-18.0) g/dl Hct (42-52) % POC Hct (42-52) % MCV (80-100) fL MCH (25-34) pg MCHC (32-36) g/dL RDW Std Deviation (36.4-46.3) fL RDW Coeff of Onelia (11.5-14.5) % Plt Count (130-400) K/uL MPV (7.4-10.4) fL Absolute Nucleated RBC (0-0) K/uL Nucleated RBC % (auto) % Neutrophils % (Manual) % Lymphocytes % (Manual) % Reactive Lymphs % (Man) % Monocytes % (Manual) % Neutrophils # (Manual) (1.4-6.5) K/uL Total Absolute Neuts (1.4-6.5) K/uL Lymphocytes # (Manual) (1.2-3.4) K/uL Reactive Lymphs # K/uL Total Abs Lymphocytes (1.2-3.4) K/uL Monocytes # (Manual) (0.11-0.59) K/uL Hypogranular Neuts Poikilocytosis Anisocytosis PT (9.0-12.0) Seconds INR (0.9-1.1) APTT (21.0-31.0) Seconds PTT Ratio D-Dimer (0-500) ug/L FEU VBG pH (7.36-7.41) VBG pCO2 (38-50) mmHg VBG pO2 mmHg VBG HCO3 mmol/L VBG O2 Saturation % VBG Base Excess mEq/L Barometric Pressure mm/Hg POC Sodium (135-144) mEq/L Sodium (136-145) mmol/L POC Potassium (3.3-5.0) mEq/L Potassium (3.5-5.1) mmol/L POC Chloride (101-112) mEq/L Chloride (98-107) mmol/L Carbon Dioxide (21-32) mmol/L POC Total CO2 (24-31) mEq/l Anion Gap (3-11) POC Anion Gap (16-25) mmol/L POC BUN (7-18) mg/dl BUN (7-18) mg/dl Creatinine (0.6-1.4) mg/dl POC Creatinine (0.6-1.3) mg/dl Est Cr Clr Drug Dosing ml/min Est GFR ( Amer) Est GFR (Non-Af Amer) BUN/Creatinine Ratio (10-20) Glucose (70-99) mg/dl POC Glucose (other) (70-99) mg/dl Lactate 1.9 (0.4-2.0) mmol/L Calcium (8.5-10.1) mg/dl POC Ioniz Calcium Taran (1.12-1.32) mmol/l Magnesium (1.8-2.4) mg/dl Total Bilirubin (0.2-1) mg/dl AST (15-37) U/L ALT (12-78) U/L Alkaline Phosphatase (45-117) U/L Troponin I (0-0.045) ng/ml NT-Pro-B Natriuret Pep (0-1800) pg/ml Total Protein (6.4-8.2) gm/dl Albumin (3.4-5.0) gm/dl Globulin (2.5-4.0) gm/dl Albumin/Globulin Ratio (0.9-2) Procalcitonin (0-0.5) ng/ml Urine Color Yellow Urine Appearance Clear (Clear) Urine pH 6.5 (4.5-7.5) Ur Specific [place] 1.013 (1.000-1.030) Urine Protein Negative (Negative) Urine Glucose (UA) Negative (Negative) Urine Ketones Negative (Negative) Urine Blood Negative (Negative) Urine Nitrite Negative (Negative) Urine Bilirubin Negative (Negative) Urine Urobilinogen Negative (Negative) Ur Leukocyte Esterase Negative (Negative) Nasal Screen MRSA (PCR) (Negative) Influenza Type A (PCR) (Neg) Influenza Type B (PCR) (Neg) Blood Type O Negative Antibody Screen POSITIVE A Antibody Identification Anti-Jka Crossmatch See Detail 06/04/18 06/04/18 06/04/18 Range/Units 15:30 19:43 23:30 WBC (4.8-10.8) K/uL RBC (4.7-6.1) M/uL Hgb (14.0-18.0) g/dL POC Hgb (14.0-18.0) g/dl Hct (42-52) % POC Hct (42-52) % MCV (80-100) fL MCH (25-34) pg MCHC (32-36) g/dL RDW Std Deviation (36.4-46.3) fL RDW Coeff of Onelia (11.5-14.5) % Plt Count (130-400) K/uL MPV (7.4-10.4) fL Absolute Nucleated RBC (0-0) K/uL Nucleated RBC % (auto) % Neutrophils % (Manual) % Lymphocytes % (Manual) % Reactive Lymphs % (Man) % Monocytes % (Manual) % Neutrophils # (Manual) (1.4-6.5) K/uL Total Absolute Neuts (1.4-6.5) K/uL Lymphocytes # (Manual) (1.2-3.4) K/uL Reactive Lymphs # K/uL Total Abs Lymphocytes (1.2-3.4) K/uL Monocytes # (Manual) (0.11-0.59) K/uL Hypogranular Neuts Poikilocytosis Anisocytosis PT (9.0-12.0) Seconds INR (0.9-1.1) APTT (21.0-31.0) Seconds PTT Ratio D-Dimer (0-500) ug/L FEU VBG pH (7.36-7.41) VBG pCO2 (38-50) mmHg VBG pO2 mmHg VBG HCO3 mmol/L VBG O2 Saturation % VBG Base Excess mEq/L Barometric Pressure mm/Hg POC Sodium (135-144) mEq/L Sodium (136-145) mmol/L POC Potassium (3.3-5.0) mEq/L Potassium (3.5-5.1) mmol/L POC Chloride (101-112) mEq/L Chloride (98-107) mmol/L Carbon Dioxide (21-32) mmol/L POC Total CO2 (24-31) mEq/l Anion Gap (3-11) POC Anion Gap (16-25) mmol/L POC BUN (7-18) mg/dl BUN (7-18) mg/dl Creatinine (0.6-1.4) mg/dl POC Creatinine (0.6-1.3) mg/dl Est Cr Clr Drug Dosing ml/min Est GFR ( Amer) Est GFR (Non-Af Amer) BUN/Creatinine Ratio (10-20) Glucose (70-99) mg/dl POC Glucose (other) (70-99) mg/dl Lactate (0.4-2.0) mmol/L Calcium (8.5-10.1) mg/dl POC Ioniz Calcium Taran (1.12-1.32) mmol/l Magnesium 1.6 L (1.8-2.4) mg/dl Total Bilirubin (0.2-1) mg/dl AST (15-37) U/L ALT (12-78) U/L Alkaline Phosphatase (45-117) U/L Troponin I (0-0.045) ng/ml NT-Pro-B Natriuret Pep (0-1800) pg/ml Total Protein (6.4-8.2) gm/dl Albumin (3.4-5.0) gm/dl Globulin (2.5-4.0) gm/dl Albumin/Globulin Ratio (0.9-2) Procalcitonin (0-0.5) ng/ml Urine Color Urine Appearance (Clear) Urine pH (4.5-7.5) Ur Specific [place] (1.000-1.030) Urine Protein (Negative) Urine Glucose (UA) (Negative) Urine Ketones (Negative) Urine Blood (Negative) Urine Nitrite (Negative) Urine Bilirubin (Negative) Urine Urobilinogen (Negative) Ur Leukocyte Esterase (Negative) Nasal Screen MRSA (PCR) Negative (Negative) Influenza Type A (PCR) Neg for Influ A (Neg) Influenza Type B (PCR) Neg for Influ B (Neg) Blood Type Antibody Screen Antibody Identification Crossmatch 06/05/18 Range/Units 06:11 WBC 1.89 L (4.8-10.8) K/uL RBC 2.80 L (4.7-6.1) M/uL Hgb 9.4 L (14.0-18.0) g/dL POC Hgb (14.0-18.0) g/dl Hct 27.2 L (42-52) % POC Hct (42-52) % MCV 97.1 (80-100) fL MCH 33.6 (25-34) pg MCHC 34.6 (32-36) g/dL RDW Std Deviation 63.8 H (36.4-46.3) fL RDW Coeff of Onelia 18.6 H (11.5-14.5) % Plt Count 277 (130-400) K/uL MPV 10.0 (7.4-10.4) fL Absolute Nucleated RBC (0-0) K/uL Nucleated RBC % (auto) % Neutrophils % (Manual) % Lymphocytes % (Manual) % Reactive Lymphs % (Man) % Monocytes % (Manual) % Neutrophils # (Manual) (1.4-6.5) K/uL Total Absolute Neuts (1.4-6.5) K/uL Lymphocytes # (Manual) (1.2-3.4) K/uL Reactive Lymphs # K/uL Total Abs Lymphocytes (1.2-3.4) K/uL Monocytes # (Manual) (0.11-0.59) K/uL Hypogranular Neuts Poikilocytosis Anisocytosis PT (9.0-12.0) Seconds INR (0.9-1.1) APTT (21.0-31.0) Seconds PTT Ratio D-Dimer (0-500) ug/L FEU VBG pH (7.36-7.41) VBG pCO2 (38-50) mmHg VBG pO2 mmHg VBG HCO3 mmol/L VBG O2 Saturation % VBG Base Excess mEq/L Barometric Pressure mm/Hg POC Sodium (135-144) mEq/L Sodium (136-145) mmol/L POC Potassium (3.3-5.0) mEq/L Potassium (3.5-5.1) mmol/L POC Chloride (101-112) mEq/L Chloride (98-107) mmol/L Carbon Dioxide (21-32) mmol/L POC Total CO2 (24-31) mEq/l Anion Gap (3-11) POC Anion Gap (16-25) mmol/L POC BUN (7-18) mg/dl BUN (7-18) mg/dl Creatinine (0.6-1.4) mg/dl POC Creatinine (0.6-1.3) mg/dl Est Cr Clr Drug Dosing ml/min Est GFR ( Amer) Est GFR (Non-Af Amer) BUN/Creatinine Ratio (10-20) Glucose (70-99) mg/dl POC Glucose (other) (70-99) mg/dl Lactate (0.4-2.0) mmol/L Calcium (8.5-10.1) mg/dl POC Ioniz Calcium Taran (1.12-1.32) mmol/l Magnesium (1.8-2.4) mg/dl Total Bilirubin (0.2-1) mg/dl AST (15-37) U/L ALT (12-78) U/L Alkaline Phosphatase (45-117) U/L Troponin I (0-0.045) ng/ml NT-Pro-B Natriuret Pep (0-1800) pg/ml Total Protein (6.4-8.2) gm/dl Albumin (3.4-5.0) gm/dl Globulin (2.5-4.0) gm/dl Albumin/Globulin Ratio (0.9-2) Procalcitonin (0-0.5) ng/ml Urine Color Urine Appearance (Clear) Urine pH (4.5-7.5) Ur Specific [place] (1.000-1.030) Urine Protein (Negative) Urine Glucose (UA) (Negative) Urine Ketones (Negative) Urine Blood (Negative) Urine Nitrite (Negative) Urine Bilirubin (Negative) Urine Urobilinogen (Negative) Ur Leukocyte Esterase (Negative) Nasal Screen MRSA (PCR) (Negative) Influenza Type A (PCR) (Neg) Influenza Type B (PCR) (Neg) Blood Type Antibody Screen Antibody Identification Crossmatch Imaging Data Radiologist's Impression: Radiology results as stated below per my review and the radiologist's interpretation: XR chest 1V portable CLINICAL HISTORY: 82 years-old Male presenting with Dyspnea. TECHNIQUE: Portable upright AP view of the chest was obtained. COMPARISON: 04/20/[address] from 03/06/2018. FINDINGS: Left subclavian Mediport terminates in the lower SVC. Atherosclerosis of aortic arch. Cardiac silhouette moderately enlarged. Elevation of the right hemidiaphragm with postsurgical changes of the right lung base. Added density of the lungs bilaterally and diffusely superimposed on coarse and underlying lung markings. Bronchial wall thickening suggested. Persistent right pleural thickening or small pleural effusion. New trace left pleural effusion. Degenerative changes of the spine. Right shoulder arthroplasty. Advanced degenerative changes of the left glenohumeral joint. IMPRESSION: 1. Interval development of diffuse added density of the lungs concerning for diffuse infiltrates. This may represent cardiogenic or noncardiogenic edema or, less likely, an atypical pneumonia. This appears superimposed on underlying chronic lung disease. 2. Cardiomegaly. 3. Postsurgical changes of right lower lobectomy. Electronically signed by: Raj Mesa M.D. 06/04/2018 1:[address] angio chest PE protocol CLINICAL HISTORY: 82 years-old Male presenting with MN ^CTR RM A3 ^+dimer, pink sputum, SOB. TECHNIQUE: Multidetector CT angiography of the chest was performed after administration of intravenous contrast. 3-D volumetric and/or maximum intensity projection (MIP) images were subsequently reconstructed for review. IV contrast: 94 mL of Optiray 320. One or more dose lowering techniques were used consistent with the principles of ALARA (as low as reasonably achievable), including automatic exposure control, mA or kV adjustment to individual patient size, and/or use of iterative reconstruction. COMPARISON: 03/06/2018. CT DOSE (mGy.cm): The estimated cumulative dose is 530.31 mGy.cm. FINDINGS: Cook Dessert topogram: Right shoulder arthroplasty. Left subclavian Mediport. Elevation of the right hemidiaphragm. Pulmonary vasculature: The study is adequate for assessment of the pulmonary vascular tree. No filling defect within the pulmonary arteries to suggest embolus. Main pulmonary artery is not enlarged. No flattening of the interventricular septum. No intracardiac filling defect. Reflux of contrast into the intrahepatic IVC. Remaining chest: Soft tissues: Normal thyroid and thoracic inlet. Few prominent mediastinal lymph nodes, the largest in the prevascular and aortopulmonary regions, measuring up to 9 mm. Atherosclerosis of the aorta. Multichamber enlargement of the heart. Coronary artery and aortic valve calcification. Small bilateral pleural effusions. The right pleural effusion may be loculated. No pericardial effusion. Cholelithiasis. Lungs and airways: No pneumothorax. Central airways patent. Postsurgical changes of right lower lobectomy. Mild diffuse bronchial wall thickening. Pulmonary arteries mildly enlarged relative to adjacent bronchi. Diffuse centrilobular septal thickening. Multifocal patchy predominantly groundglass opacities with a peripheral predominance affecting all residual lobes. Prominent mosaic attenuation. Musculoskeletal: Degenerative changes of the spine. Right shoulder arthroplasty. Degenerative changes of the left glenohumeral joint. IMPRESSION: 1. No evidence of pulmonary embolus. 2. Patchy diffuse infiltrates affecting all residual lobes. This is nonspecific appearance with a wide differential. Differential considerations include an atypical infectious etiology, drug reaction, cardiogenic or noncardiogenic pulmonary edema, or, less likely, metastatic disease. 3. Enlarged pulmonary arteries relative to adjacent bronchi with interlobular septal thickening suggests venolymphatic congestion. 4. Bilateral small pleural effusions, likely loculated on the right. 5. Postsurgical changes of right lower lobectomy. 6. Cholelithiasis. Electronically signed by: Raj Mesa M.D. 06/04/2018 2:21 PM ECG Data Attestation: I personally reviewed and interpreted this ECG as follows: Indication: SOB/dyspnea Rate (beats per minute): 83 Rhythm: atrial fibrillation Findings: + other (normal QRS duration) and + T-wave inversion (lead III); no acute ischemic change Blood Pressure Blood Pressure Findings: Elevated blood pressure Blood Pressure Disposition: further management by hospitalist [facility] Narrative Prior records/ancillary studies reviewed. Triage nursing notes reviewed. The patient is a 82 year old white male w/ PMHx of right lobectomy, Afib with RVR, DVT prophylaxis, prostate cancer, lung cancer, HTN who presents to the ED after being referred to the ED by his oncologist. Differential diagnosis: Etiologies such as infections, reactive airway disease, pneumonia, pneumothorax, COPD, CHF, cardiac ischemia, pulmonary embolism, musculoskeletal, gastrointestinal, as well as others were entertained. Patient was seen and evaluated the bedside. The patient was referred for worsening shortness of breath. Patient did have some blood work completed today which showed some persistent but mild anemia. Hemoglobin at less than 7. The patient has had a nonproductive cough. Patient is on prophylactic antibiotics, antivirals, and antifungals. Patient did a blood work completed along with EKG troponin chest x-ray and BNP. BNP is elevated. Troponin is detectable but not elevated. EKG shows A. fib. Patient is supratherapeutic with the INR at greater than 4. No spontaneous bleeding and does not require reversal. Recommend to hold next dose and repeat. The patient's [id number] hemoglobin is 6.8 but his labs include was 8.1. The patient's d-dimer was elevated. He is supratherapeutic likelihood of clot is unlikely but given the unclear etiology based on the patient's exam and chest x-ray CT of the chest was ordered. This showed possible edema versus infectious versus inflammatory change. Given this the patient was started on antibiotics and the patient did have a consent for blood transfusion as this may help with his dyspnea. I did discuss with the hospitalist that giving him blood he may require some Lasix as he does have some scant lower extremity edema with possible pulmonary edema within the chest. I did speak the on-call hospitalist who agreed to further evaluate treat the patient. Patient was admitted to the medicine service. Patient was consented for blood. Impression & Plan Anemia, Shortness of breath Critical Care Time I have personally spent greater than 35 minutes of critical care time in direct management of this patient. This includes bedside care, interpretation of diagnostic studies, and testing, discussion with consultants, patient, and family members, and other require inpatient management activities. This 35 minutes is in excess of all separately billable procedures. Critical Care Time: Yes Total Critical Care Time: 35 Discharge Plan Visit Data *Final* Discharge Date/Time: 06/04/18 18:27 Chief Complaint: Referred by Doctor Stated Complaint: sob ED Provider: Daljit Monet Discharge Problem: Anemia, Shortness of breath Patient Disposition: Admitted As Inpatient Discharge Instructions Interventions: ED Discharge Assessment Last Done: 06/04/18 18:27 Discharge Problem: Anemia Qualifiers: Anemia type: unspecified type Qualified Code(s): D64.9 - Anemia, unspecified The scribe's documentation has been prepared under my direction and personally reviewed by me in its entirety. I confirm that the note above accurately r eflects all work, treatment, procedures, and medical decision making performed by me.
[2018-06-05 07:02] LABS: Giant Platelets 1+
[2018-06-05 07:04] LABS: Lymphocytes # (manual) 0.64 K/uL (1.2-3.4); Lymphocytes % (manual) 33.9 %; Monocytes % (manual) 16.1 %; Neutrophils % (manual) 9.8 %; Reactive Lymphocytes # (manual) 0.76 K/uL
[2018-06-05 07:06] LABS: Albumin Level 2.7 gm/dl (3.4-5.0); BUN Creatinine Ratio 12.3 (10-20); Calcium 7.9 mg/dl (8.5-10.1); Creatinine Clr Calc Pharmacy 70.5 ml/min; Est GFR (African American) 85.1; Est GFR (Non-African American) 73.4; Potassium 3.5 mmol/L (3.5-5.1)
[2018-06-05 07:09] LABS: Albumin Globulin Ratio 0.6 (0.9-2); Bilirubin,Total 1.1 mg/dl (0.2-1); Globulin 4.4 gm/dl (2.5-4.0); Total Protein 7.1 gm/dl (6.4-8.2)
[2018-06-05] MEDS: LEVALBUTEROL HCL 0.63 MG/3 ML NEB NEB SCH ×4 (07:48→19:16)
[2018-06-05] MEDS: IPRATROPIUM BROMIDE NEB SOLN 0.02% 2.5 ML VIAL INH SCH ×4 (07:48→19:17)
[2018-06-05] MEDS: FUROSEMIDE 40 MG in SYRINGE 0 ML IV SCH (08:01)
[2018-06-05] MEDS: POSACONAZOLE PO SCH (08:01)
[2018-06-05] MEDS: ACYCLOVIR 200 MG CAP PO SCH ×2 (08:02→20:54)
[2018-06-05] MEDS: METOPROLOL TARTRATE 25 MG TAB PO SCH (08:02)
[2018-06-05] MEDS: ASPIRIN 81 MG ECTAB PO SCH (08:03)
[2018-06-05] MEDS: MAGNESIUM OXIDE 400 MG TAB PO SCH (08:03)
[2018-06-05] MEDS: PANTOprazole 40 MG TAB PO SCH ×2 (08:03→20:54)
[2018-06-05] MEDS: ROSUVASTATIN CALCIUM 10 MG TAB PO SCH (08:03)
[2018-06-05] MEDS: ALLOPURINOL 100 MG TAB PO SCH (08:03)
[2018-06-05] MEDS: LISINOPRIL 5 MG TAB PO SCH (08:03)
[2018-06-05] MEDS ORDERED: CONSULT PHARMACY STA (08:09)
[2018-06-05] MEDS: DOXYCYCLINE HYCLATE 100 MG in DEXTROSE 5% 100 ML IV SCH ×2 (09:17→20:56)
--- NOTE | 2018-06-05 10:00 | Hospitalist Progress Note ---
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 Refer to HPI for past 3 month course of hospitalization, follow up CT x 2, heme/onc and telemedicine pulmonary consult Upon arrival patient placed on 2 L O2 given saturations 88% hgb outpt 6.9, POC repeat 6.9, repeat CBC 8.1 Transfuse PRBC x 1 ordered CXR/CT scan obtained: Negative for PE, but concerning for diffuse multilobar pulmonary opacities, small bilateral pleural effusions likely loculated on right, enlarged pulmonary arteries concerning for venolymphatic congestion Negative for influenza BNP mildly elevated 2742 Given patient's recent diagnosis of pneumonia back in February he was placed on empiric IV Zosyn ABG, Lactate WNL, procalcitonin pending Patient met SIRS criteria on admission WBC 2.02, RR > 24, HR > 90 Lactate WNL Given Pt hx of MDS/ Afib could explain SIRS; however infection still in differential Broad Spectrum IV zosyn given, MRSA swab pending 06/05/2018 Patient diuresed well overnight DC IV Lasix, monitor volume status in the morning, patient uses Lasix 20 mg p.o. as needed as an outpatient Echocardiogram ordered Doxycycline added to Zosyn for atypical coverage Continue nebs Pulmonary consulted for possible bronchoscopy (3) RIOS (dyspnea on exertion): -plan as above, likely multifactorial (4) Ground glass opacity present on imaging of lung: -plan as above (5) Myelodysplastic syndrome: -Follows Dr. Colin hematology oncology will consult hematology given neutropenia ? if candidate for neupogen -Status post decitabine x2 cycles, last given 05/11/18 -Hemoglobin upon arrival 6.9, repeat 8.1 Status post 1 unit of packed RBCs Hemoglobin is improved to 9 -Continue Noxafil and acyclovir prophylaxis Hematology oncology consulted (6) Neutropenia: -neutropenic precautions ANC 190, monitor closely, (7) Chronic atrial fibrillation: -patient mostly rate controlled but slight elevation in HR given underlying process -continue metoprolol and warfarin -INR supra therapeutic, hold warfarin the evening INR still supratherapeutic, hold Coumadin today, monitor INR -monitor closely on telemetry (8) Hypertension: -blood pressure elevated upon admission -continue lisinopril (9) HLD (hyperlipidemia): -continue crestor (10) Barretts esophagus: -continue PPI (11) DVT prophylaxis: -INR supratherapeutic, 3.5 -Hold Coumadin this evening -Repeat INR in a.m. Disposition:Lives at home with family Follow up: PCP Dr. Nance upon discharge as well as heme/onc Dr. Colin and appropriate follow up with Pulmonology Subjective ff up for anemia, hypoxia seen resting in bed, comfortable states he feels improved today compared to yesterday breathing has improved, denies cough/ sputum/fever/chills no chest pain denies other symptoms Physical Exam Vital Signs (Past 24 Hours): Last Vital Signs Temp 36.3 C L 06/05/18 03:34 Pulse 86 06/05/18 09:41 Resp 16 06/05/18 07:48 BP 134/84 06/05/18 03:34 Pulse Ox 97 06/05/18 07:48 Physical Exam: General- oriented x 3, not in distress, speaks in sentences with no effort or accessory muscle use Eyes- anicteric Neck- no JVD Lungs- mild rales at the bases, no wheezing, good air entry bilaterally Heart- normal rate, regular rhythm; no murmurs Abdomen- normal bowel sounds, nondistended, soft, nontender Extremities- no pretibial edema, no calf tenderness Neuro- alert, oriented x 3; no gross focal neurologic deficits Skin- warm & dry Results & Data Laboratory Results Laboratory Results - last 24 hr 06/04/18 06/04/18 06/04/18 12:33 12:33 12:33 WBC 2.02 L RBC 2.35 L Hgb 8.1 L POC Hgb Hct 23.3 L POC Hct MCV 99.1 MCH 34.5 H MCHC 34.8 RDW Std Deviation 60.6 H RDW Coeff of Onelia 17.4 H Plt Count 290 MPV 10.0 Absolute Nucleated RBC 0.02 H Nucleated RBC % (auto) 1.0 Neutrophils % (Manual) 4.4 Lymphocytes % (Manual) 61.9 Reactive Lymphs % (Man) 25.7 Monocytes % (Manual) 8.0 Neutrophils # (Manual) 0.09 L Total Absolute Neuts 0.09 L* Lymphocytes # (Manual) 1.25 Reactive Lymphs # 0.52 Total Abs Lymphocytes 1.77 Monocytes # (Manual) 0.16 Hypogranular Neuts 1+ Giant Platelets Poikilocytosis Present Anisocytosis Present PT 44.5 H INR 4.9 H APTT 44.7 H PTT Ratio 1.6 D-Dimer 560 H* VBG pH VBG pCO2 VBG pO2 VBG HCO3 VBG O2 Saturation VBG Base Excess Barometric Pressure POC Sodium Sodium 137 POC Potassium Potassium 4.0 POC Chloride Chloride 105 Carbon Dioxide 27 POC Total CO2 Anion Gap 5.0 POC Anion Gap POC BUN BUN 13 Creatinine 0.80 POC Creatinine Est Cr Clr Drug Dosing 86.8 Est GFR ( Amer) 97.8 Est GFR (Non-Af Amer) 84.4 BUN/Creatinine Ratio 16.7 Glucose 101 H POC Glucose (other) Lactate Calcium 8.0 L POC Ioniz Calcium Taran Magnesium 1.9 Total Bilirubin 0.9 AST 45 H ALT 63 Alkaline Phosphatase 82 Troponin I 0.017 NT-Pro-B Natriuret Pep 2742 H Total Protein 7.0 Albumin 2.8 L Globulin 4.2 H Albumin/Globulin Ratio 0.7 L Procalcitonin Urine Color Urine Appearance Urine pH Ur Specific [place] Urine Protein Urine Glucose (UA) Urine Ketones Urine Blood Urine Nitrite Urine Bilirubin Urine Urobilinogen Ur Leukocyte Esterase Nasal Screen MRSA (PCR) Influenza Type A (PCR) Influenza Type B (PCR) Blood Type Antibody Screen Antibody Identification Crossmatch 06/04/18 06/04/18 06/04/18 12:33 12:38 12:54 WBC RBC Hgb POC Hgb 6.8 L* Hct POC Hct 20 L* MCV MCH MCHC RDW Std Deviation RDW Coeff of [place]elia Plt Count MPV Absolute Nucleated RBC Nucleated RBC % (auto) Neutrophils % (Manual) Lymphocytes % (Manual) Reactive Lymphs % (Man) Monocytes % (Manual) Neutrophils # (Manual) Total Absolute Neuts Lymphocytes # (Manual) Reactive Lymphs # Total Abs Lymphocytes Monocytes # (Manual) Hypogranular Neuts Giant Platelets Poikilocytosis Anisocytosis PT INR APTT PTT Ratio D-Dimer VBG pH 7.41 VBG pCO2 40 VBG pO2 22 VBG HCO3 25 VBG O2 Saturation < 60.0 VBG Base Excess 0.2 Barometric Pressure 737.4 POC Sodium 139 Sodium POC Potassium 4.0 Potassium POC Chloride 102 Chloride Carbon Dioxide POC Total CO2 28 Anion Gap POC Anion Gap 15.0 L POC BUN 11 BUN Creatinine POC Creatinine 0.8 Est Cr Clr Drug Dosing Est GFR ( Amer) Est GFR (Non-Af Amer) BUN/Creatinine Ratio Glucose POC Glucose (other) 101 H Lactate Calcium POC Ioniz Calcium Taran 1.12 Magnesium Total Bilirubin AST ALT Alkaline Phosphatase Troponin I NT-Pro-B Natriuret Pep Total Protein Albumin Globulin Albumin/Globulin Ratio Procalcitonin 0.06 Urine Color Urine Appearance Urine pH Ur Specific [place] Urine Protein Urine Glucose (UA) Urine Ketones Urine Blood Urine Nitrite Urine Bilirubin Urine Urobilinogen Ur Leukocyte Esterase Nasal Screen MRSA (PCR) Influenza Type A (PCR) Influenza Type B (PCR) Blood Type Antibody Screen Antibody Identification Crossmatch 06/04/18 06/04/18 06/04/18 14:00 15:06 15:11 WBC RBC Hgb POC Hgb Hct POC Hct MCV MCH MCHC RDW Std Deviation RDW Coeff of Onelia Plt Count MPV Absolute Nucleated RBC Nucleated RBC % (auto) Neutrophils % (Manual) Lymphocytes % (Manual) Reactive Lymphs % (Man) Monocytes % (Manual) Neutrophils # (Manual) Total Absolute Neuts Lymphocytes # (Manual) Reactive Lymphs # Total Abs Lymphocytes Monocytes # (Manual) Hypogranular Neuts Giant Platelets Poikilocytosis Anisocytosis PT INR APTT PTT Ratio D-Dimer VBG pH VBG pCO2 VBG pO2 VBG HCO3 VBG O2 Saturation VBG Base Excess Barometric Pressure POC Sodium Sodium POC Potassium Potassium POC Chloride Chloride Carbon Dioxide POC Total CO2 Anion Gap POC Anion Gap POC BUN BUN Creatinine POC Creatinine Est Cr Clr Drug Dosing Est GFR ( Amer) Est GFR (Non-Af Amer) BUN/Creatinine Ratio Glucose POC Glucose (other) Lactate 1.9 Calcium POC Ioniz Calcium Taran Magnesium Total Bilirubin AST ALT Alkaline Phosphatase Troponin I NT-Pro-B Natriuret Pep Total Protein Albumin Globulin Albumin/Globulin Ratio Procalcitonin Urine Color Yellow Urine Appearance Clear Urine pH 6.5 Ur Specific [place] 1.013 Urine Protein Negative Urine Glucose (UA) Negative Urine Ketones Negative Urine Blood Negative Urine Nitrite Negative Urine Bilirubin Negative Urine Urobilinogen Negative Ur Leukocyte Esterase Negative Nasal Screen MRSA (PCR) Influenza Type A (PCR) Influenza Type B (PCR) Blood Type O Negative Antibody Screen POSITIVE A Antibody Identification Anti-Jka Crossmatch See Detail 06/04/18 06/04/18 06/04/18 15:30 19:43 23:30 WBC RBC Hgb POC Hgb Hct POC Hct MCV MCH MCHC RDW Std Deviation RDW Coeff of [place]leia Plt Count MPV Absolute Nucleated RBC Nucleated RBC % (auto) Neutrophils % (Manual) Lymphocytes % (Manual) Reactive Lymphs % (Man) Monocytes % (Manual) Neutrophils # (Manual) Total Absolute Neuts Lymphocytes # (Manual) Reactive Lymphs # Total Abs Lymphocytes Monocytes # (Manual) Hypogranular Neuts Giant Platelets Poikilocytosis Anisocytosis PT INR APTT PTT Ratio D-Dimer VBG pH VBG pCO2 VBG pO2 VBG HCO3 VBG O2 Saturation VBG Base Excess Barometric Pressure POC Sodium Sodium POC Potassium Potassium POC Chloride Chloride Carbon Dioxide POC Total CO2 Anion Gap POC Anion Gap POC BUN BUN Creatinine POC Creatinine Est Cr Clr Drug Dosing Est GFR ( Amer) Est GFR (Non-Af Amer) BUN/Creatinine Ratio Glucose POC Glucose (other) Lactate Calcium POC Ioniz Calcium Taran Magnesium 1.6 L Total Bilirubin AST ALT Alkaline Phosphatase Troponin I NT-Pro-B Natriuret Pep Total Protein Albumin Globulin Albumin/Globulin Ratio Procalcitonin Urine Color Urine Appearance Urine pH Ur Specific [place] Urine Protein Urine Glucose (UA) Urine Ketones Urine Blood Urine Nitrite Urine Bilirubin Urine Urobilinogen Ur Leukocyte Esterase Nasal Screen MRSA (PCR) Negative Influenza Type A (PCR) Neg for Influ A Influenza Type B (PCR) Neg for Influ B Blood Type Antibody Screen Antibody Identification Crossmatch 06/05/18 06/05/18 06/05/18 06:11 06:11 06:11 WBC 1.89 L RBC 2.80 L Hgb 9.4 L POC Hgb Hct 27.2 L POC Hct MCV 97.1 MCH 33.6 MCHC 34.6 RDW Std Deviation 63.8 H RDW Coeff of Onelia 18.6 H Plt Count 277 MPV 10.0 Absolute Nucleated RBC Nucleated RBC % (auto) Neutrophils % (Manual) 9.8 Lymphocytes % (Manual) 33.9 Reactive Lymphs % (Man) 40.2 Monocytes % (Manual) 16.1 Neutrophils # (Manual) 0.19 L Total Absolute Neuts 0.19 L* Lymphocytes # (Manual) 0.64 L Reactive Lymphs # 0.76 Total Abs Lymphocytes 1.40 Monocytes # (Manual) 0.30 Hypogranular Neuts Giant Platelets 1+ Poikilocytosis Anisocytosis PT 32.7 H INR 3.5 H APTT PTT Ratio D-Dimer VBG pH VBG pCO2 VBG pO2 VBG HCO3 VBG O2 Saturation VBG Base Excess Barometric Pressure POC Sodium Sodium 138 POC Potassium Potassium 3.5 POC Chloride Chloride 103 Carbon Dioxide 31 POC Total CO2 Anion Gap 4.0 POC Anion Gap POC BUN BUN 12 Creatinine 0.97 POC Creatinine Est Cr Clr Drug Dosing 70.5 Est GFR ( Amer) 85.1 Est GFR (Non-Af Amer) 73.4 BUN/Creatinine Ratio 12.3 Glucose 108 H POC Glucose (other) Lactate Calcium 7.9 L POC Ioniz Calcium Taran Magnesium Total Bilirubin 1.1 H AST 33 ALT 51 Alkaline Phosphatase 79 Troponin I NT-Pro-B Natriuret Pep Total Protein 7.1 Albumin 2.7 L Globulin 4.4 H Albumin/Globulin Ratio 0.6 L Procalcitonin Urine Color Urine Appearance Urine pH Ur Specific [place] Urine Protein Urine Glucose (UA) Urine Ketones Urine Blood Urine Nitrite Urine Bilirubin Urine Urobilinogen Ur Leukocyte Esterase Nasal Screen MRSA (PCR) Influenza Type A (PCR) Influenza Type B (PCR) Blood Type Antibody Screen Antibody Identification Crossmatch (1) Neutropenia Neutropenia type: other Qualified Code(s): D70.8 - Other neutropenia (2) Hypertension Hypertension type: essential hypertension Qualified Code(s): I10 - Essential (primary) hypertension
--- NOTE | 2018-06-05 12:16 | Pulmonary Consultation ---
Date of Consultation June 05, 2018 Assessment & Plan (1) Pneumonia: We have reviewed the CT scan of the chest which looks like bilateral diffuse patchy infiltrates along with right lower lobectomy and minimal bilateral pleural effusion. The patient is also neutropenic secondary to his chemotherapy as well as possibility of SIRS. The patient has been fully cultured and we will also consider induced sputum by the respite therapist. There was an option for bronchoscopy but currently he is neutropenic and now will hold on the bronchoscopy at this time. If he is not getting better we will certainly consider the bronchoscopy but in the meantime we are going to send the sputum for Gram stain culture and sensitivity as well as fungus and virus. Currently patient is on broad-spectrum IV antibiotics including IV acyclovir as well as doxazosin and Zosyn. Cultures are all pending. We try to localize the fluid with ultrasound was seen but there was not enough fluids on either side for thoracentesis. The patient is on DVT prophylaxis with SCD. We are going to continue with all the management as prescribed. Also oxygen as well as nebulizer treatment. I am also going to start the patient on IV steroids. If there is no improvement on his current medical condition will consider a bronchoscopy. I had a long discussion with the family members who were by the bedside and I have also discussed with the primary care physician Jacky Estevez. I have spent greater than 55 minutes of clinical time. (2) Acute respiratory failure with hypoxia: (3) Ground glass opacity present on imaging of lung: (4) Anemia: Anemia type: unspecified type Qualified Code(s): D64.9 - Anemia, unspecified (5) Pancytopenia: (6) Neutropenia: Neutropenia type: other Qualified Code(s): D70.8 - Other neutropenia (7) Atrial fibrillation with RVR: (8) Acute respiratory failure with hypoxia: (9) DVT prophylaxis: History of Present Illness Reason for Consultation: Abnormal CT scan of the chest, bilateral diffuse pulmonary disease. Requesting Physician: Jacky Holman MD Attending Physician: Jacky Holman MD History of Present Illness This is an 82-year-old male who has a significant past medical history of chronic atrial fibrillation on warfarin, HTN, HLD, gout, Gilman's esophagus, history of right lung adeno CA status post right lower lobe lobectomy in 2007, history of prostate cancer, recently diagnosed MDS s/p decitabine x 2, pancytopenia who presents to [facility] at the recommendation of oracle erp architect secondary to low blood count. and son at bedside. Patient has been receiving intermittent PRBC transfusion secondary to MDS. Has received 4 in the past month, most recently 2 days ago. Patient was recently confined at [facility] 03/02/18-03/11/19 secondary to PNA treated with IV antibiotics. CT scan at time concerning for patchy groundglass opacities and underlying left lower lobe pneumonia. Treated with IV zosyn and transitioned to IV levaquin and oral augmentin. Completed 10 day course. At that time patient was noted to be neutropenic in which he underwent MDS flow cytometry. He was later subsequently diagnosed with MDS and follows outpatient hematology Dr. Colin. Since diagnosis he had received 2 cycles of decitabine, last given 05/11/18. Further he has been taking daily Augmentin twice a day, acyclovir 400 mg twice a day and Noxafil 300 mg daily for prophylaxis given neutropenia. Unfortunately since February 2018 patient has been experiencing profound dyspnea on exertion which has limited and effected patient's QOL. Gets short of breath with minimal exertion, "like walking to the bathroom." RIOS has progressively been worsening since February. Son notes that usually after receiving 1 unit of PRBC it tends to improve his dyspnea on exertion. He last received transfusion Friday and sx have not improved. He was noted in outpatient setting today to have hgb of 6.9 therefore referred to ED. Including RIOS patient also complaints of intermittent productive cough of pink sputum. He denies fever, chills, sweats, lightheadedness, dizziness, syncope, chest pain, palpitations, shortness of breath at rest, nausea, vomiting, diarrhea, change in bowel or bladder habits. states appetite is very good. Denies any weight loss or gain. Denies any significant swelling. He did trial albuterol inhaler that was prescribed by outside sales executive Dr. Mauricio ([facility]) in which he did note improvement with shortness of breath temporarily. The patient is sitting in the bed and he feels that he is somewhat better than yesterday when he was admitted. He is coughing but not able to clear any secretions. He also gets short of breath with any kind of exertion or activities. The patient denies having any chest pain fever chills or hemoptysis. Allergies Allergy/AdvReac Type Severity Reaction Status Date / Time No Known Allergies Allergy Verified 06/04/18 12:27 Home Medications Home Medications Medication Instructions Recorded Confirmed Type allopurinol 100 mg PO DAILY 03/02/18 06/04/18 History furosemide 20 mg PO DAILY PRN 03/02/18 06/04/18 History lisinopril 5 mg PO DAILY 03/02/18 06/04/18 History magnesium oxide 400 mg PO QAM 03/02/18 06/04/18 History metoprolol tartrate 50 mg PO QPM 03/02/18 06/04/18 History metoprolol tartrate 75 mg PO QAM 03/02/18 06/04/18 History pantoprazole [Protonix] 40 mg PO BID 03/02/18 06/04/18 History potassium chloride 10 meq PO DAILY PRN 03/02/18 06/04/18 History acyclovir 400 mg PO BID 04/15/18 06/04/18 History warfarin 5 mg PO SUMOWETHFR #0 04/20/18 06/04/18 History amoxicillin-pot clavulanate 1 tab PO Q12H 05/21/18 06/04/18 History [Augmentin] posaconazole [Noxafil] 300 mg PO DAILY 05/21/18 06/04/18 History aspirin 81 mg PO DAILY 06/04/18 06/04/18 History decitabine [Dacogen] 50 mg IV DAILY 06/04/18 06/04/18 History rosuvastatin 10 mg PO DAILY 06/04/18 06/04/18 History warfarin 2.5 mg PO TUSA 06/04/18 06/04/18 History Patient History Medical History HLD (hyperlipidemia) Myelodysplastic syndrome Recently diagnosed via bone marrow biopsy. Reason for port placement. History of kidney stones (Chronic) 1982 Chronic atrial fibrillation (Chronic) History of prostate cancer (Resolved) Status post prostatectomy History of lung cancer (Resolved) R lung adenocarcinoma T1 N0 M0 status post right lower lobe lobectomy 05/08/07 Barretts esophagus (Chronic) Hypertension (Chronic) History of pneumonia 02/2018 Surgical History History of vitrectomy 3 SURGERIES INCLUDING SCLERAL BUCKLE (LEFT EYE) FOR DETACHED RETINA History of circumcision AN ADULT History of kidney surgery OPEN INCISION FOR LARGE KIDNEY STONE EXTRACTION. H/O umbilical hernia repair (Chronic) S/P lobectomy of lung (Chronic) RLL due to cancer 05/2007 S/P tonsillectomy and adenoidectomy (Chronic) History of appendectomy (Chronic) Status post total shoulder arthroplasty (Chronic) S/P left knee arthroscopy (Chronic) H/O hemicolectomy (Chronic) Due to diverticulitis History of total left knee replacement (Chronic) H/O prostatectomy (Chronic) History of appendectomy (Inactive) History of thoracotomy (Inactive) History of tonsillectomy (Inactive) Family History Other Family history non-contributory Social History Preferred Language: Maori Communication Ability: Effective 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 He denies having any headache dizziness or syncopal episode. Also denies having any swollen glands. He does not have any chest pain fever chills or hemoptysis. Also denies having any abdominal pain nausea vomiting. Does not have any blood in the stool urine or painful micturition. Denies having any swollen extremities skin rash or swollen joints. He has been getting very short of breath lately with any kind of exertional activities. He is not on any home oxygen. He has got 2 courses of chemotherapy and is scheduled for another one on 08 June the third one. He seems to be tolerating the chemotherapy very well except currently he is neutropenic. He has been also getting low on his blood count and anemia and he has been receiving outpatient transfusion from his oncology physician. Physical Exam Vital Signs (Past 24 Hours): Last Vital Signs Temp 36.3 C L 06/05/18 03:34 Pulse 76 06/05/18 11:35 Resp 16 06/05/18 11:35 BP 134/84 06/05/18 03:34 Pulse Ox 94 06/05/18 11:35 Physical Exam: GEN: WD/WN, M, Elderly, NAD, sitting up in bed, pleasant, conversing EASILY, not any acute distress. HEAD: Normocephalic, ATRAUMATIC EYES: Sclera normal, no conjunctival injection, PERRLA, EOMI ENT: Gross hearing intact, normal pharynx, mucous membranes MOIST NECK: supple, no adenopathy, No JVD, no bruit, RESP: Clear to auscultation b/l on O2 via NC, minimal bibasilar crackles, no wheeze, rhonchi. Normal insp/exp effort, no accessory muscle USE CV: Irregular rate, irregular rhythm, no murmur, rub, gallop, or ECTOPY ABD: +BS x 4, soft, nontender, NONDISTENDED MUSCULOSKELETAL: moves extremities active rom x 4, strength intact, good report developer STRENGTH EXTREMITIES: No clubbing, no edema, nontender calf muscles. SKIN: warm, moist, no rash, negative turgor, cap refill < 2SEC NEURO: Alert and oriented x 3, speech normal, good mood/affect, cran nerve 2-12 intact grossly, pupils are equally reactive to light and is moving all his extremities. Results & Data Laboratory Results Abnormal lab results 06/04/18 06/04/18 06/04/18 Range/Units 12:33 12:33 12:33 WBC 2.02 L (4.8-10.8) K/uL RBC 2.35 L (4.7-6.1) M/uL Hgb 8.1 L (14.0-18.0) g/dL POC Hgb (14.0-18.0) g/dl Hct 23.3 L (42-52) % POC Hct (42-52) % MCH 34.5 H (25-34) pg RDW Std Deviation 60.6 H (36.4-46.3) fL RDW Coeff of Onelia 17.4 H (11.5-14.5) % Absolute Nucleated RBC 0.02 H (0-0) K/uL Neutrophils # (Manual) 0.09 L (1.4-6.5) K/uL Total Absolute Neuts 0.09 L* (1.4-6.5) K/uL Lymphocytes # (Manual) (1.2-3.4) K/uL PT 44.5 H (9.0-12.0) Seconds INR 4.9 H (0.9-1.1) APTT 44.7 H (21.0-31.0) Seconds D-Dimer 560 H* (0-500) ug/L FEU POC Anion Gap (16-25) mmol/L Glucose 101 H (70-99) mg/dl POC Glucose (other) (70-99) mg/dl Calcium 8.0 L (8.5-10.1) mg/dl Magnesium (1.8-2.4) mg/dl Total Bilirubin (0.2-1) mg/dl AST 45 H (15-37) U/L NT-Pro-B Natriuret Pep 2742 H (0-1800) pg/ml Albumin 2.8 L (3.4-5.0) gm/dl Globulin 4.2 H (2.5-4.0) gm/dl Albumin/Globulin Ratio 0.7 L (0.9-2) Antibody Screen Crossmatch 06/04/18 06/04/18 06/04/18 Range/Units 12:38 15:06 19:43 WBC (4.8-10.8) K/uL RBC (4.7-6.1) M/uL Hgb (14.0-18.0) g/dL POC Hgb 6.8 L* (14.0-18.0) g/dl Hct (42-52) % POC Hct 20 L* (42-52) % MCH (25-34) pg RDW Std Deviation (36.4-46.3) fL RDW Coeff of Onelia (11.5-14.5) % Absolute Nucleated RBC (0-0) K/uL Neutrophils # (Manual) (1.4-6.5) K/uL Total Absolute Neuts (1.4-6.5) K/uL Lymphocytes # (Manual) (1.2-3.4) K/uL PT (9.0-12.0) Seconds INR (0.9-1.1) APTT (21.0-31.0) Seconds D-Dimer (0-500) ug/L FEU POC Anion Gap 15.0 L (16-25) mmol/L Glucose (70-99) mg/dl POC Glucose (other) 101 H (70-99) mg/dl Calcium (8.5-10.1) mg/dl Magnesium 1.6 L (1.8-2.4) mg/dl Total Bilirubin (0.2-1) mg/dl AST (15-37) U/L NT-Pro-B Natriuret Pep (0-1800) pg/ml Albumin (3.4-5.0) gm/dl Globulin (2.5-4.0) gm/dl Albumin/Globulin Ratio (0.9-2) Antibody Screen POSITIVE A Crossmatch See Detail 06/05/18 06/05/18 06/05/18 Range/Units 06:11 06:11 06:11 WBC 1.89 L (4.8-10.8) K/uL RBC 2.80 L (4.7-6.1) M/uL Hgb 9.4 L (14.0-18.0) g/dL POC Hgb (14.0-18.0) g/dl Hct 27.2 L (42-52) % POC Hct (42-52) % MCH (25-34) pg RDW Std Deviation 63.8 H (36.4-46.3) fL RDW Coeff of Onelia 18.6 H (11.5-14.5) % Absolute Nucleated RBC (0-0) K/uL Neutrophils # (Manual) 0.19 L (1.4-6.5) K/uL Total Absolute Neuts 0.19 L* (1.4-6.5) K/uL Lymphocytes # (Manual) 0.64 L (1.2-3.4) K/uL PT 32.7 H (9.0-12.0) Seconds INR 3.5 H (0.9-1.1) APTT (21.0-31.0) Seconds D-Dimer (0-500) ug/L FEU POC Anion Gap (16-25) mmol/L Glucose 108 H (70-99) mg/dl POC Glucose (other) (70-99) mg/dl Calcium 7.9 L (8.5-10.1) mg/dl Magnesium (1.8-2.4) mg/dl Total Bilirubin 1.1 H (0.2-1) mg/dl AST (15-37) U/L NT-Pro-B Natriuret Pep (0-1800) pg/ml Albumin 2.7 L (3.4-5.0) gm/dl Globulin 4.4 H (2.5-4.0) gm/dl Albumin/Globulin Ratio 0.6 L (0.9-2) Antibody Screen Crossmatch Diagnostic Findings Repeat CT Scan 04/17/18: IMPRESSION: 1. Persistent ground-glass opacities and patchy nodular airspace disease in both lower lung zones, mildly improved in the left lower lobe, and may represent persistent infectious or inflammatory process, such as pneumonia or pneumonitis. 2. Postsurgical changes in the right lung with a new tiny right pleural effusion. 3. Other findings, as above. Repeat 05/16/18 1. Progression of the infectious/inflammatory ground-glass opacity and subpleural nodularity seen in both upper lobes compared to the prior study. The involvement of the lower lobes is about the same. 2. Stable surgical changes from right lower lobectomy. No definite findings for recurrent or metastatic disease. 3. Gallstones. IMPRESSION: 1. No evidence of pulmonary embolus. 2. Patchy diffuse infiltrates affecting all residual lobes. This is nonspecific appearance with a wide differential. Differential considerations include an atypical infectious etiology, drug reaction, cardiogenic or noncardiogenic pulmonary edema, or, less likely, metastatic disease. 3. Enlarged pulmonary arteries relative to adjacent bronchi with interlobular septal thickening suggests venolymphatic congestion. 4. Bilateral small pleural effusions, likely loculated on the right. 5. Postsurgical changes of right lower lobectomy. 6. Cholelithiasis. Electronically signed by: Raj Mesa M.D. 06/04/2018 2:21 PM Medications Administered Current Inpatient Medications Acetaminophen (Tylenol) 650 mg PO Q4H PRN PRN Reason: Pain or Fever Stop: 07/04/18 19:09 Acyclovir (Zovirax) 400 mg PO BID DENISA Stop: 07/04/18 20:59 Last Admin: 06/05/18 08:02 Dose: 400 mg Documented by: Al Hydrox/Mg Hydrox/Simethicone (Maalox) 15 ml PO Q4H PRN PRN Reason: Dyspepsia Stop: 07/04/18 19:09 Allopurinol (Zyloprim) 100 mg PO DAILY DENISA Stop: 07/05/18 08:59 Last Admin: 06/05/18 08:03 Dose: 100 mg Documented by: Aspirin (Ecotrin Ectab) 81 mg PO DAILY [facility] Stop: 07/05/18 08:59 Last Admin: 06/05/18 08:03 Dose: 81 mg Documented by: Sodium Chloride (Nss 250ml) 250 mls @ 15 mls/hr IV .[id number] PRN PRN Reason: For Transfusion Stop: 07/04/18 14:28 Sodium Chloride (Nss 250ml) 250 mls @ 15 mls/hr IV .[id number] PRN PRN Reason: For Transfusion Stop: 07/04/18 19:09 Piperacillin Sod/Tazobactam (Sod 3.375 gm/ Dextrose) 115 mls @ 28.75 mls/hr IV Q8H [facility]; Protocol Stop: 06/11/18 21:59 Last Infusion: 06/05/18 09:48 Dose: Infused Documented by: Doxycycline Hyclate 100 mg/ (Dextrose) 110 mls @ 55 mls/hr IV Q12H [facility]; Protocol Stop: 06/12/18 08:59 Last Infusion: 06/05/18 11:14 Dose: Infused Documented by: Ipratropium [place] (Atrovent 0.02% 0.5mg/2.5ml) 0.5 mg INH Q4RWA [facility] Stop: 07/04/18 19:59 Last Admin: 06/05/18 11:35 Dose: 0.5 mg Documented by: Levalbuterol HCl (Xopenex 0.63 Mg/3 Ml Neb) 0.63 mg NEB Q4RWA [facility] Stop: 07/04/18 19:59 Last Admin: 06/05/18 11:35 Dose: 0.63 mg Documented by: Lisinopril (Zestril) 5 mg PO DAILY [facility] Stop: 07/05/18 08:59 Last Admin: 06/05/18 08:03 Dose: 5 mg Documented by: Magnesium Hydroxide (Milk Of Magnesia) 30 ml PO Q12H PRN PRN Reason: Constipation Stop: 07/04/18 19:09 Magnesium Oxide (Mag-Ox) 400 mg PO QAM [facility] Stop: 07/05/18 08:59 Last Admin: 06/05/18 08:03 Dose: 400 mg Documented by: Metoprolol Tartrate (Lopressor) 50 mg PO QPM [facility] Stop: 07/04/18 20:59 Last Admin: 06/04/18 20:43 Dose: 50 mg Documented by: Metoprolol Tartrate (Lopressor) 75 mg PO QAM DENISA Stop: 07/05/18 08:59 Last Admin: 06/05/18 08:02 Dose: 75 mg Documented by: Miscellaneous Information (Consult) 1 ea N/A UD PRN PRN Reason: Consult Stop: 07/04/18 19:09 Posaconazole-Non- Formulary Patient's Own Med 3 ea PO DAILY DEINSA Stop: 07/05/18 08:59 Last Admin: 06/05/18 08:01 Dose: 300 mg Documented by: Ondansetron HCl (Zofran) 4 mg IV Q6H PRN PRN Reason: Nausea Stop: 07/04/18 19:09 Pantoprazole Sodium (Protonix) 40 mg PO BID DENISA Stop: 07/04/18 20:59 Last Admin: 06/05/18 08:03 Dose: 40 mg Documented by: Polyethylene Glycol (Miralax Powder Packet) 17 gm PO DAILY PRN PRN Reason: Constipation Stop: 07/04/18 19:09 Rosuvastatin Calcium (Crestor) 10 mg PO DAILY [facility]ISA Stop: 07/05/18 08:59 Last Admin: 06/05/18 08:03 Dose: 10 mg Documented by:
[2018-06-05] MEDS ORDERED: PERFLUTREN LIPID MICROSPHERE (DEFINITY) IV ONE (14:03)
--- NOTE | 2018-06-05 18:26 | Oncology Consultation ---
Date of Consultation June 05, 2018 Assessment & Plan (1) Myelodysplastic syndrome: 82-year-old male, Hematological diagnosis: - High-grade myelodysplastic syndrome with excess blast, 15% blasts on bone marrow aspirate, - Currently receiving systemic chemotherapy with Dacogen (decitabine), received 2 cycles so far since midMarch 2018, last cycle of chemotherapy received between 05/11/2018- 05/15/2018. - He gets [id number] CBCD checkup and receives blood transfusion as needed. - As an out-patient he is on acyclovir, Augmentin prophylaxis, posaconazole prophylaxis. He is admitted hospital for increasing shortness of breath, received 1 unit of PRBC with significant improvement of the anemia symptoms. He is due for next cycle of chemotherapy with Dacogen next week but obviously it will be delayed by 1 week or so. Has persistent neutropenia, I would not recommend Neupogen for neutropenia in his case (earlier bone marrow showed excess blast which can get worse with the Neupogen treatment). Will continue with the current medical management including antibacterial and anti-fungal and antiviral medication. We should try to keep hemoglobin level between 7-a g/dL. He will continue to have outpatient CBCD checkup twice a week and the will receive blood transfusion as needed. He will continue to have follow-up with Dr. Colin. Thanks for the consultation. Raciel Rose MD Hem/Onc History of Present Illness Attending Physician: Jacky Holman MD 82-year-old male, Hematological diagnosis: - High-grade myelodysplastic syndrome with excess blast, 15% blasts on bone marrow aspirate, - Currently receiving systemic chemotherapy with Dacogen (decitabine), received 2 cycles so far since March 2018, last cycle of chemotherapy received between 05/11/2018- 05/15/2018. - He gets [id number] CBCD checkup and receives blood transfusion as needed. - As an out-patient he is on acyclovir, Augmentin prophylaxis, posaconazole prophylaxis. - Hemoglobin level around 7.9 g/dL with ANC around 0.4 as of 06/01/2018, received 1 of PRBC on the following day. He came to the clinic on [id number] blood checkup, WBC 2200, H&H of 8.3/24, Platelet count of 310,000, ANC 350. He had increasing shortness of breath and now he's admitted at [facility], I saw him at bedside, he is sitting comfortably in the bed, now for the 1st time he is receiving nasal cannula subduction at 1 L per minute, here leg edema which has improved after diuretic treatment, no chest pain, no increasing coughing, no fever. Recently he had CT scan of the chest on 05/14/2018 for groundglass changes/prior pneumonia which shows progression of the underlying infectious/inflammatory groundglass opacity and a platelet nodularity in the both upper lobes. Seen by commodity management specialist as an outpatient, possible aspiration. oncologic history: ? -History ofstage IA: T1 N0 [id number] lower lobe adenocarcinoma of the lung (treated with right lower lobectomy and mediastinal node dissection 05/12/2007 Allergies Allergy/AdvReac Type Severity Reaction Status Date / Time No Known Allergies Allergy Verified 06/04/18 12:27 Home Medications Home Medications Medication Instructions Recorded Confirmed Type allopurinol 100 mg PO DAILY 03/02/18 06/04/18 History furosemide 20 mg PO DAILY PRN 03/02/18 06/04/18 History lisinopril 5 mg PO DAILY 03/02/18 06/04/18 History magnesium oxide 400 mg PO QAM 03/02/18 06/04/18 History metoprolol tartrate 50 mg PO QPM 03/02/18 06/04/18 History metoprolol tartrate 75 mg PO QAM 03/02/18 06/04/18 History pantoprazole [Protonix] 40 mg PO BID 03/02/18 06/04/18 History potassium chloride 10 meq PO DAILY PRN 03/02/18 06/04/18 History acyclovir 400 mg PO BID 04/15/18 06/04/18 History warfarin 5 mg PO SUMOWETHFR #0 04/20/18 06/04/18 History amoxicillin-pot clavulanate 1 tab PO Q12H 05/21/18 06/04/18 History [Augmentin] posaconazole [Noxafil] 300 mg PO DAILY 05/21/18 06/04/18 History aspirin 81 mg PO DAILY 06/04/18 06/04/18 History decitabine [Dacogen] 50 mg IV DAILY 06/04/18 06/04/18 History rosuvastatin 10 mg PO DAILY 06/04/18 06/04/18 History warfarin 2.5 mg PO TUSA 06/04/18 06/04/18 History Patient History Medical History HLD (hyperlipidemia) Myelodysplastic syndrome Recently diagnosed via bone marrow biopsy. Reason for port placement. History of kidney stones (Chronic) 1982 Chronic atrial fibrillation (Chronic) History of prostate cancer (Resolved) Status post prostatectomy History of lung cancer (Resolved) R lung adenocarcinoma T1 N0 M0 status post right lower lobe lobectomy 05/08/07 Barretts esophagus (Chronic) Hypertension (Chronic) History of pneumonia 02/2018 Surgical History History of vitrectomy 3 SURGERIES INCLUDING SCLERAL BUCKLE (LEFT EYE) FOR DETACHED RETINA History of circumcision AN ADULT History of kidney surgery OPEN INCISION FOR LARGE KIDNEY STONE EXTRACTION. H/O umbilical hernia repair (Chronic) S/P lobectomy of lung (Chronic) RLL due to cancer 05/2007 S/P tonsillectomy and adenoidectomy (Chronic) History of appendectomy (Chronic) Status post total shoulder arthroplasty (Chronic) S/P left knee arthroscopy (Chronic) H/O hemicolectomy (Chronic) Due to diverticulitis History of total left knee replacement (Chronic) H/O prostatectomy (Chronic) History of appendectomy (Inactive) History of thoracotomy (Inactive) History of tonsillectomy (Inactive) Family History Other Family history non-contributory Social History Preferred Language: Sami Communication Ability: Effective 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 SKIN: No skin rash, no bruising. HEAD: No new/increasing headache, no dizziness. EYES: No recent change in the vision, no diplopia, EARS: No earache ,no tinnitus, NOSE: No epistaxis, No nasal discharge or stuffiness, MOUTH: No sores, no dysphagia, no hoarseness of voice, NECK: No lumps, No swelling in thyroid area. No stiffness. PULMONARY: No cough, shortness of breath on minimal exertion present which has improved, no hemoptysis, no chest pain, No wheezing. CARDIOVASCULAR: No anginal chest pain, no PND, no orthopnea. No palpitation, leg edema present but getting better after diuretic treatment. No syncope. GASTRIINTESTINAL: No abdominal pain, no nausea or vomiting. No diarrhea, No constipation. No blood in stool or black tarry stools. No abdominal distention. UROLOGIC: No burning urination. No hematuria. MUSCULOSKELETAL: No joint pain, No joint swelling, no muscle weakness. HEMATOLOGIC: No anemia, no bleeding disorder, No bruising. So far received 4 units of PRBC. NEUROLOGIC: No seizures, no focal weakness, no speech difficulty, No memory disturbances. No tingling or numbness of the extremities. PSYCHRIATRIC: No depression. No anxiety. No psychosis. Physical Exam Vital Signs (Past 24 Hours): Last Vital Signs Temp 36.6 C 06/05/18 15:19 Pulse 89 06/05/18 15:41 Resp 22 06/05/18 15:41 BP 119/73 06/05/18 15:19 Pulse Ox 90 06/05/18 15:41 On exam: - Alert and oriented x3, well built man, not in any distress. - HEENT: no icterus, pallor, Throat: Normal. - Neck: No palpable cervical lymphadenopathy. - Abdomen: soft, nontender, no hepatomegaly, no splenomegaly. - No focal neuro deficit. - Extremities: no finger clubbing, no leg edema. Results & Data Laboratory Results Blood workup done on 06/04/2018: - WBC 2000, H&H of 8.1/20.3, Platelet count of 290,000, - Hemoglobin level dropped down to around 6.8 when checked at bedside. - After 1 unit of PRBC, blood workup done on 06/05/2018 > WBC 1800, H&H of 9.4/27.2, Platelet count of 277,000. ANC is 190. - BUN/creatinine: 12/0.9 - Albumin 2.7 - Normal liver function test. Diagnostic Findings CT chest with PE protocol (06/04/2018) - No evidence of pulmonary embolism. - Diffuse infiltrate in the lung which appears to be not nonspecific, atypical infection, drug reaction, not edema. - Bilateral small pleural effusions. - Right lower lobectomy - Gallstone present.- Gallstone present.
[2018-06-05] MEDS: METOPROLOL TARTRATE 50 MG TAB PO SCH (20:53)
--- NOTE | 2018-06-05 22:28 | Hospitalist Progress Note ---
Date of Service June 05, 2018 delayed entry date of service Assessment & Plan (1) SIRS (systemic inflammatory response syndrome): (2) Acute respiratory failure with hypoxia: Per admitting service notes This is an 82-year-old male who has a significant past medical history of chronic atrial fibrillation on warfarin, HTN, HLD, gout, Gilman's esophagus, history of right lung adeno CA status post right lower lobe lobectomy in 2007, history of prostate cancer, recently diagnosed MDS s/p decitabine x 2, pancytopenia who presents to [facility] at the recommendation of comic book designer secondary to low blood count. Refer to HPI for past 3 month course of hospitalization, follow up CT x 2, heme/onc and telemedicine pulmonary consult Upon arrival patient placed on 2 L O2 given saturations 88% hgb outpt 6.9, POC repeat 6.9, repeat CBC 8.1 Transfuse PRBC x 1 ordered CXR/CT scan obtained: Negative for PE, but concerning for diffuse multilobar pulmonary opacities, small bilateral pleural effusions likely loculated on right, enlarged pulmonary arteries concerning for venolymphatic congestion Negative for influenza BNP mildly elevated 2742 Given patient's recent diagnosis of pneumonia back in February he was placed on empiric IV Zosyn ABG, Lactate WNL, procalcitonin pending Patient met SIRS criteria on admission WBC 2.02, RR > 24, HR > 90 Lactate WNL Given Pt hx of MDS/ Afib could explain SIRS; however infection still in differential Broad Spectrum IV zosyn given, MRSA swab pending 06/05/2018 Patient diuresed well overnight DC IV Lasix, monitor volume status in the morning, patient uses Lasix 20 mg p.o. as needed as an outpatient Echocardiogram ordered Doxycycline added to Zosyn for atypical coverage Continue nebs Pulmonary consulted for possible bronchoscopy (3) RIOS (dyspnea on exertion): -plan as above, likely multifactorial (4) Ground glass opacity present on imaging of lung: -plan as above (5) Myelodysplastic syndrome: -Follows Dr. Colin hematology oncology will consult hematology given neutropenia ? if candidate for neupogen -Status post decitabine x2 cycles, last given 05/11/18 -Hemoglobin upon arrival 6.9, repeat 8.1 Status post 1 unit of packed RBCs Hemoglobin is improved to 9 -Continue Noxafil and acyclovir prophylaxis Hematology oncology consulted (6) Neutropenia: -neutropenic precautions ANC 190, monitor closely, (7) Chronic atrial fibrillation: -patient mostly rate controlled but slight elevation in HR given underlying process -continue metoprolol and warfarin -INR supra therapeutic, hold warfarin the evening INR still supratherapeutic, hold Coumadin today, monitor INR -monitor closely on telemetry (8) Hypertension: -blood pressure elevated upon admission -continue lisinopril (9) HLD (hyperlipidemia): -continue crestor (10) Barretts esophagus: -continue PPI (11) DVT prophylaxis: -INR supratherapeutic, 3.5 -Hold Coumadin this evening -Repeat INR in a.m. Disposition:Lives at home with family Follow up: PCP Dr. Nance upon discharge as well as heme/onc Dr. Colin and appropriate follow up with Pulmonology Subjective ff up for anemia, hypoxia seen resting in bed, comfortable states he feels improved today compared to yesterday breathing has improved, denies cough/ sputum/fever/chills no chest pain denies other symptoms Physical Exam Vital Signs (Past 24 Hours): Last Vital Signs Temp 36.7 C 06/05/18 19:26 Pulse 87 06/05/18 19:26 Resp 22 06/05/18 19:26 BP 143/88 H 06/05/18 19:26 Pulse Ox 94 06/05/18 19:26 Physical Exam: General- oriented x 3, not in distress, speaks in sentences with no effort or accessory muscle use Eyes- anicteric Neck- no JVD Lungs- mild rhonchi bilaterally, no rales/wheezes Heart- normal rate, regular rhythm; no murmurs Abdomen- normal bowel sounds, nondistended, soft, nontender Extremities- no pretibial edema, no calf tenderness Neuro- alert, oriented x 3; no gross focal neurologic deficits Skin- warm & dry Results & Data Laboratory Results all noted and reviewed (1) Neutropenia Neutropenia type: other Qualified Code(s): D70.8 - Other neutropenia (2) Hypertension Hypertension type: essential hypertension Qualified Code(s): I10 - Essential (primary) hypertension
[2018-06-06] MEDS: PIPERACILLIN/TAZOBACTAM 3.375 GM in DEXTROSE 5% 100 ML IV SCH ×3 (06:06→21:35)
[2018-06-06] MEDS: IPRATROPIUM BROMIDE NEB SOLN 0.02% 2.5 ML VIAL INH SCH ×4 (06:58→19:19)
[2018-06-06] MEDS: LEVALBUTEROL HCL 0.63 MG/3 ML NEB NEB SCH ×4 (06:59→19:20)
[2018-06-06 07:20] LABS: INR 2.7 (0.9-1.1); Prothrombin Time 26.1 Seconds (9.0-12.0)
[2018-06-06] MEDS: ROSUVASTATIN CALCIUM 10 MG TAB PO SCH (10:23)
[2018-06-06] MEDS: DOXYCYCLINE HYCLATE 100 MG in DEXTROSE 5% 100 ML IV SCH ×2 (10:23→21:24)
[2018-06-06] MEDS: ASPIRIN 81 MG ECTAB PO SCH (10:24)
[2018-06-06] MEDS: METOPROLOL TARTRATE 25 MG TAB PO SCH (10:25)
[2018-06-06] MEDS: POSACONAZOLE PO SCH (10:26)
[2018-06-06] MEDS: MAGNESIUM OXIDE 400 MG TAB PO SCH (10:26)
[2018-06-06] MEDS: PANTOprazole 40 MG TAB PO SCH ×2 (10:27→21:31)
[2018-06-06] MEDS: LISINOPRIL 5 MG TAB PO SCH (10:28)
[2018-06-06] MEDS: ACYCLOVIR 200 MG CAP PO SCH ×2 (10:28→21:31)
[2018-06-06] MEDS: ALLOPURINOL 100 MG TAB PO SCH (10:29)
[2018-06-06 10:44] LABS: BUN Creatinine Ratio 14.9 (10-20); Creatinine Clr Calc Pharmacy 79.3 ml/min; Est GFR (African American) 94.9; Est GFR (Non-African American) 81.9; Hematocrit (blood only) 26.9 % (42-52); Hemoglobin 9.2 g/dL (14.0-18.0); Mean Corpuscular Hgb Conc 34.2 g/dL (32-36); Mean Corpuscular Volume 97.5 fL (80-100); Platelet Count 253 K/uL (130-400); Potassium 3.4 mmol/L (3.5-5.1); RDW Coefficient of Variation 18.3 % (11.5-14.5); RDW Standard Deviation 62.7 fL (36.4-46.3); Red Blood Count 2.76 M/uL (4.7-6.1); White Blood Count 1.84 K/uL (4.8-10.8)
[2018-06-06 11:13] LABS: Lymphocytes # (auto) 1.15 K/uL (1.2-3.4); Lymphocytes % (auto) 62.5 %; Monocytes # (auto) 0.44 K/uL (0.11-0.59); Monocytes % (auto) 23.9 %; Neutrophils # (auto) 0.25 K/uL (1.4-6.5); Neutrophils % (auto) 13.6 %
--- NOTE | 2018-06-06 11:22 | Pulmonology Progress Note ---
Date of Service June 06, 2018 Assessment & Plan (1) Pneumonia: We have reviewed the CT scan of the chest which looks like bilateral diffuse patchy infiltrates along with right lower lobectomy and minimal bilateral pleural effusion. The patient is also neutropenic secondary to his chemotherapy as well as possibility of SIRS. The patient has been fully cultured and we will also consider induced sputum by the respiratory therapist, which is pending. Since the patient is recovering slowly we are not going to do any bronchoscopy at this time. If he is not getting better we will certainly consider the bronchoscopy but in the meantime we are going to send the sputum for Gram stain culture and sensitivity as well as fungus and virus. Currently patient is on broad-spectrum IV antibiotics including IV acyclovir as well as doxazosin and Zosyn. Cultures are all pending. We had also done the ultrasound to localize the fluid but there was not enough fluid for thoracentesis. Overall he seems to be recovering on current plan of care including Zosyn and doxycycline and that will be continued and adjusted according to the culture results. I am also going to start the patient on low-dose Solu-Medrol and monitor the patient very closely. The patient is on DVT prophylaxis with SCD. We are going to continue with all the management as prescribed. Also oxygen as well as nebulizer treatment. I am also going to start the patient on IV steroids. If there is no improvement on his current medical condition will consider a bronchoscopy. I had a long discussion with the family members who were by the bedside and I have also discussed with the primary care physician Jacky Estevez. I have spent greater than 55 minutes of clinical time. (2) Acute respiratory failure with hypoxia: (3) Ground glass opacity present on imaging of lung: (4) Anemia: Anemia type: unspecified type Qualified Code(s): D64.9 - Anemia, unspecified (5) Pancytopenia: (6) Neutropenia: Neutropenia type: other Qualified Code(s): D70.8 - Other neutropenia (7) Atrial fibrillation with RVR: (8) DVT prophylaxis: Subjective The patient was seen and examined by myself. The patient is resting comfortably in the bed. He feels that he has improved from yesterday. He is also breathing better and at rest he is oxygenating in the low 90s without oxygen. He does get short of breath with any kind of exertional activity is in desaturate and 80s. His WBC count was 1.84 which is little bit lower than yesterday. The neutrophil count is still pending. Potassium was low which will be replaced. Physical Exam Vital Signs (Past 24 Hours): Last Vital Signs Temp 37.1 C 06/06/18 07:13 Pulse 86 06/06/18 11:11 Resp 16 06/06/18 11:11 BP 125/86 06/06/18 07:13 Pulse Ox 96 06/06/18 11:11 Physical Exam: GEN: WD/WN, M, Elderly, NAD, sitting up in bed, pleasant, conversing EASILY, not any acute distress. HEAD: Normocephalic, ATRAUMATIC EYES: Sclera normal, no conjunctival injection, PERRLA, EOMI ENT: Gross hearing intact, normal pharynx, mucous membranes MOIST NECK: supple, no adenopathy, No JVD, no bruit, RESP: Clear to auscultation b/l on O2 via NC, minimal bibasilar crackles, no wheeze, rhonchi. Normal insp/exp effort, no accessory muscle USE CV: Irregular rate, irregular rhythm, no murmur, rub, gallop, or ECTOPY ABD: +BS x 4, soft, nontender, NONDISTENDED MUSCULOSKELETAL: moves extremities active rom x 4, strength intact, good resin mixer STRENGTH EXTREMITIES: No clubbing, no edema, nontender calf muscles. SKIN: warm, moist, no rash, negative turgor, cap refill < 2SEC NEURO: Alert and oriented x 3, speech normal, good mood/affect, cran nerve 2-12 intact grossly, pupils are equally reactive to light and is moving all his extremities.
[2018-06-06] MEDS: methylPREDNISolone 40 MG in SYRINGE 0 ML IV SCH ×2 (12:06→19:41)
--- NOTE | 2018-06-06 13:48 | Hospitalist Progress Note ---
Date of Service June 06, 2018 Assessment & Plan (1) SIRS (systemic inflammatory response syndrome): (2) Acute respiratory failure with hypoxia: Per admitting service notes This is an 82-year-old male who has a significant past medical history of chronic atrial fibrillation on warfarin, HTN, HLD, gout, Gilman's esophagus, history of right lung adeno CA status post right lower lobe lobectomy in 2007, history of prostate cancer, recently diagnosed MDS s/p decitabine x 2, pancytopenia who presents to [facility] at the recommendation of tail ripper secondary to low blood count. Refer to HPI for past 3 month course of hospitalization, follow up CT x 2, heme/onc and telemedicine pulmonary consult Upon arrival patient placed on 2 L O2 given saturations 88% hgb outpt 6.9, POC repeat 6.9, repeat CBC 8.1 Transfuse PRBC x 1 ordered CXR/CT scan obtained: Negative for PE, but concerning for diffuse multilobar pulmonary opacities, small bilateral pleural effusions likely loculated on right, enlarged pulmonary arteries concerning for venolymphatic congestion Negative for influenza BNP mildly elevated 2742 Given patient's recent diagnosis of pneumonia back in February he was placed on empiric IV Zosyn ABG, Lactate WNL, procalcitonin pending Patient met SIRS criteria on admission WBC 2.02, RR > 24, HR > 90 Lactate WNL Given Pt hx of MDS/ Afib could explain SIRS; however infection still in differential Broad Spectrum IV zosyn given, MRSA swab pending cough /SOB has been improving gradually cont Doxycyline for atypical coverage (3) RIOS (dyspnea on exertion): -plan as above, likely multifactorial (4) Ground glass opacity present on imaging of lung: -plan as above (5) Myelodysplastic syndrome: -Follows Dr. Colin hematology oncology will consult hematology given neutropenia ? if candidate for neupogen -Status post decitabine x2 cycles, last given 05/11/18 -Hemoglobin upon arrival 6.9, repeat 8.1 Status post 1 unit of packed RBCs Hemoglobin is improved to 9 -Continue Noxafil and acyclovir prophylaxis Hematology oncology consulted (6) Neutropenia: -neutropenic precautions (7) Chronic atrial fibrillation: -patient mostly rate controlled but slight elevation in HR given underlying process -continue metoprolol and warfarin (8) Hypertension: -blood pressure elevated upon admission -continue lisinopril (9) HLD (hyperlipidemia): -continue crestor (10) Barretts esophagus: -continue PPI (11) DVT prophylaxis: coumadin Disposition:Lives at home with family Follow up: PCP Dr. Nance upon discharge as well as heme/onc Dr. Colin and appropriate follow up with Pulmonology Subjective still having coughing spell afebrile requiring supplemental 02 denies of any SOB Physical Exam Vital Signs (Past 24 Hours): Last Vital Signs Temp 36.9 C 06/06/18 12:04 Pulse 102 H 06/06/18 12:04 Resp 18 06/06/18 12:04 BP 135/86 06/06/18 12:04 Pulse Ox 90 06/06/18 12:04 Physical Exam: GENERAL: No sign of distress, HEENT: Sclera nonicteric, pink-purple bilateral equal reactive to light extraocular muscle intact Normal oral mucosa, neck: No JVD, no thyromegaly, trachea midline Lungs: diminished breath sound, with scattered wheeze Cardiovascular: Regular S1 and S2, no murmur or gallop, no JVD, no lower extremity edema Abdomen: Soft, nontender, bowel sounds active, no hepatosplenomegaly Extremities: No rash or deformity, normal joint, Neuro: No focal neurological deficit, no dysarthria, no facial droop Psych: Alert awake oriented x3: Euthymic Skin: No rash LYMPH NODES: No cervical lymphadenopathy (1) Neutropenia Neutropenia type: other Qualified Code(s): D70.8 - Other neutropenia (2) Hypertension Hypertension type: essential hypertension Qualified Code(s): I10 - Essential (primary) hypertension
[2018-06-06] MEDS: METOPROLOL TARTRATE 50 MG TAB PO SCH (21:32)
[2018-06-07] MEDS: PIPERACILLIN/TAZOBACTAM 3.375 GM in DEXTROSE 5% 100 ML IV SCH ×2 (05:02→14:17)
[2018-06-07] MEDS: methylPREDNISolone 40 MG in SYRINGE 0 ML IV SCH ×3 (05:05→21:03)
[2018-06-07] MEDS: IPRATROPIUM BROMIDE NEB SOLN 0.02% 2.5 ML VIAL INH SCH ×4 (07:06→19:24)
[2018-06-07] MEDS: LEVALBUTEROL HCL 0.63 MG/3 ML NEB NEB SCH ×4 (07:06→19:24)
[2018-06-07] MEDS: ROSUVASTATIN CALCIUM 10 MG TAB PO SCH (07:53)
[2018-06-07] MEDS: ASPIRIN 81 MG ECTAB PO SCH (07:54)
[2018-06-07] MEDS: MAGNESIUM OXIDE 400 MG TAB PO SCH (07:54)
[2018-06-07] MEDS: POSACONAZOLE PO SCH (07:55)
[2018-06-07] MEDS: METOPROLOL TARTRATE 25 MG TAB PO SCH (07:55)
[2018-06-07] MEDS: PANTOprazole 40 MG TAB PO SCH ×2 (07:56→21:04)
[2018-06-07] MEDS: ACYCLOVIR 200 MG CAP PO SCH ×2 (07:57→21:04)
[2018-06-07] MEDS: LISINOPRIL 5 MG TAB PO SCH (07:57)
[2018-06-07] MEDS: ALLOPURINOL 100 MG TAB PO SCH (07:58)
[2018-06-07 08:17] LABS: INR 2.3 (0.9-1.1); Prothrombin Time 22.1 Seconds (9.0-12.0)
[2018-06-07] MEDS: DOXYCYCLINE HYCLATE 100 MG in DEXTROSE 5% 100 ML IV SCH (10:32)
[2018-06-07 14:00] LABS: Hematocrit (blood only) 26.9 % (42-52); Hemoglobin 9.5 g/dL (14.0-18.0); Mean Corpuscular Hgb Conc 35.3 g/dL (32-36); Mean Corpuscular Volume 96.1 fL (80-100); Mean Platelet Volume 10.4 fL (7.4-10.4); Nucleated RBC # (auto) 0.02 K/uL (0-0); Nucleated RBC % (auto) 1.1 %; Platelet Count 311 K/uL (130-400); RDW Coefficient of Variation 18.4 % (11.5-14.5); RDW Standard Deviation 62.8 fL (36.4-46.3); White Blood Count 1.97 K/uL (4.8-10.8)
[2018-06-07 14:14] LABS: Lymphocytes # (auto) 0.71 K/uL (1.2-3.4); Monocytes # (auto) 0.36 K/uL (0.11-0.59); Monocytes % (auto) 18.3 %; Neutrophils % (auto) 45.7 %
--- NOTE | 2018-06-07 16:56 | Hospitalist Progress Note ---
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 Refer to HPI for past 3 month course of hospitalization, follow up CT x 2, heme/onc and telemedicine pulmonary consult Upon arrival patient placed on 2 L O2 given saturations 88% hgb outpt 6.9, POC repeat 6.9, repeat CBC 8.1 Transfuse PRBC x 1 ordered CXR/CT scan obtained: Negative for PE, but concerning for diffuse multilobar pulmonary opacities, small bilateral pleural effusions likely loculated on right, enlarged pulmonary arteries concerning for venolymphatic congestion Negative for influenza BNP mildly elevated 2742 Given patient's recent diagnosis of pneumonia back in February he was placed on empiric IV Zosyn ABG, Lactate WNL, procalcitonin pending Patient met SIRS criteria on admission WBC 2.02, RR > 24, HR > 90 Lactate WNL Given Pt hx of MDS/ Afib could explain SIRS; however infection still in differential Broad Spectrum IV zosyn given, MRSA swab pending pt continues to do well clincally IV Zosyn D/luis f on PO Doxycycline (3) RIOS (dyspnea on exertion): resolved 2 step exercise ordered for tomorrow (4) Ground glass opacity present on imaging of lung: treated with empiric abx (5) Myelodysplastic syndrome: -Follows Dr. Colin hematology oncology will consult hematology given neutropenia ? if candidate for neupogen -Status post decitabine x2 cycles, last given 05/11/18 -Hemoglobin upon arrival 6.9, repeat 8.1 Status post 1 unit of packed RBCs Hemoglobin is improved to 9 -Continue Noxafil and acyclovir prophylaxis Hematology oncology consulted pt will be followed with Heme onc in office (6) Neutropenia: -neutropenic precautions ANC 190 improving 210 (7) Chronic atrial fibrillation: on Metoprolol cont coumadin (8) Hypertension: -blood pressure elevated upon admission -continue lisinopril (9) HLD (hyperlipidemia): -continue crestor (10) Barretts esophagus: -continue PPI (11) DVT prophylaxis: on coumadin Disposition:Lives at home with family plan is to discharge home with home health Follow up: follow up PCP Dr. Nance upon discharge heme/onc Dr. Colin Subjective cough has improved markedly denies of any SOB afebrile feels like his baseline Physical Exam Vital Signs (Past 24 Hours): Last Vital Signs Temp 36.6 C 06/07/18 15:50 Pulse 96 H 06/07/18 15:50 Resp 18 06/07/18 15:50 BP 124/64 06/07/18 15:50 Pulse Ox 93 06/07/18 15:50 Physical Exam: GENERAL: No sign of distress, HEENT: Sclera nonicteric, pink-purple bilateral equal reactive to light extraocular muscle intact Normal oral mucosa, neck: No JVD, no thyromegaly, trachea midline Lungs:no wheeze or rales noted Cardiovascular: Regular S1 and S2, no murmur or gallop, no JVD, no lower extremity edema Abdomen: Soft, nontender, bowel sounds active, no hepatosplenomegaly Extremities: No rash or deformity, normal joint, Neuro: No focal neurological deficit, no dysarthria, no facial droop Psych: Alert awake oriented x3: Euthymic Skin: No rash LYMPH NODES: No cervical lymphadenopathy (1) Neutropenia Neutropenia type: other Qualified Code(s): D70.8 - Other neutropenia (2) Hypertension Hypertension type: essential hypertension Qualified Code(s): I10 - Essential (primary) hypertension
--- NOTE | 2018-06-07 17:42 | Pulmonology Progress Note ---
Date of Service June 07, 2018 Assessment & Plan (1) Pneumonia: We have reviewed the CT scan of the chest which looks like bilateral diffuse patchy infiltrates along with right lower lobectomy and minimal bilateral pleural effusion. The patient is also neutropenic secondary to his chemotherapy as well as possibility of SIRS. It is improved significantly. The patient has been fully cultured and we will also consider induced sputum by the respiratory therapist, which is pending. Since the patient is recovering slowly we are not going to do any bronchoscopy at this time. I We had also done the ultrasound to localize the fluid but there was not enough fluid for thoracentesis. Overall he seems to be recovering on current plan of care including Zosyn and doxycycline and that will be continued and adjusted according to the culture results. The patient is on Solu-Medrol 40 mg every 12 hours and he seems to be tolerating it very well. He will also need home oxygen and I have discussed with the primary care. The patient is on DVT prophylaxis with SCD. We are going to continue with all the management as prescribed. Also oxygen as well as nebulizer treatment. I am also going to start the patient on IV steroids. If there is no improvement on his current medical condition will consider a bronchoscopy. I had a long discussion with the family members who were by the bedside and I have also discussed with the primary care. I have spent greater than 35 minutes of clinical time. (2) Acute respiratory failure with hypoxia: (3) Ground glass opacity present on imaging of lung: (4) Anemia: Anemia type: unspecified type Qualified Code(s): D64.9 - Anemia, unspecified (5) Pancytopenia: (6) Neutropenia: Neutropenia type: other Qualified Code(s): D70.8 - Other neutropenia (7) Atrial fibrillation with RVR: (8) DVT prophylaxis: Subjective The patient was seen and examined by myself. The patient is resting comfortably in the bed. He feels that he has improved from yesterday. He is also breathing better and at rest he is oxygenating in the low 90s without oxygen. He does get short of breath with any kind of exertional activity is in desaturate and 80s. His WBC count was 1.97 which is little bit lower than yesterday. The neutrophil count has also come up from 0.25-0.90. The patient has started ambulating with oxygen and he does not get short of breath and he is also maintaining his oxygenation in mid to high 90s on 2 L nasal cannula. Overall he seems to be doing better on current plan of care. His is also by the bedside and she is also happy with his recovery. Physical Exam Vital Signs (Past 24 Hours): Last Vital Signs Temp 36.6 C 06/07/18 15:50 Pulse 96 H 06/07/18 15:50 Resp 18 06/07/18 15:50 BP 124/64 06/07/18 15:50 Pulse Ox 93 06/07/18 15:50 Physical Exam: GEN: WD/WN, M, Elderly, NAD, sitting up in bed, pleasant, conversing EASILY, not in any acute distress. Oxygenating into mid to high 90s on 2 L nasal cannula. HEAD: Normocephalic, ATRAUMATIC EYES: Sclera normal, no conjunctival injection, PERRLA, EOMI ENT: Gross hearing intact, normal pharynx, mucous membranes MOIST NECK: supple, no adenopathy, No JVD, no bruit, RESP: Clear to auscultation b/l on O2 via NC, minimal bibasilar crackles, no wheeze, rhonchi. Normal insp/exp effort, no accessory muscle USE CV: Irregular rate, irregular rhythm, no murmur, rub, gallop, or ECTOPY ABD: +BS x 4, soft, nontender, NONDISTENDED MUSCULOSKELETAL: moves extremities active rom x 4, strength intact, good plywood layup line back feeder STRENGTH EXTREMITIES: No clubbing, no edema, nontender calf muscles. SKIN: warm, moist, no rash, negative turgor, cap refill < 2SEC NEURO: Alert and oriented x 3, speech normal, good mood/affect, cran nerve 2-12 intact grossly, pupils are equally reactive to light and is moving all his extremities. Results & Data Laboratory Results Abnormal lab results 06/07/18 06/07/18 Range/Units 06:57 13:45 WBC 1.97 L (4.8-10.8) K/uL RBC 2.80 L (4.7-6.1) M/uL Hgb 9.5 L (14.0-18.0) g/dL Hct 26.9 L (42-52) % RDW Std Deviation 62.8 H (36.4-46.3) fL RDW Coeff of Onelia 18.4 H (11.5-14.5) % Neut # (Auto) 0.90 L* (1.4-6.5) K/uL Lymph # (Auto) 0.71 L (1.2-3.4) K/uL Absolute Nucleated RBC 0.02 H (0-0) K/uL PT 22.1 H (9.0-12.0) Seconds INR 2.3 H (0.9-1.1) Medications Administered Current Inpatient Medications Acetaminophen (Tylenol) 650 mg PO Q4H PRN PRN Reason: Pain or Fever Stop: 07/04/18 19:09 Acyclovir (Zovirax) 400 mg PO BID [facility] Stop: 07/04/18 20:59 Last Admin: 06/07/18 07:57 Dose: 400 mg Documented by: Al Hydrox/Mg Hydrox/Simethicone (Maalox) 15 ml PO Q4H PRN PRN Reason: Dyspepsia Stop: 07/04/18 19:09 Allopurinol (Zyloprim) 100 mg PO DAILY [facility] Stop: 07/05/18 08:59 Last Admin: 06/07/18 07:58 Dose: 100 mg Documented by: Aspirin (Ecotrin Ectab) 81 mg PO DAILY [facility] Stop: 07/05/18 08:59 Last Admin: 06/07/18 07:54 Dose: 81 mg Documented by: Doxycycline Hyclate (Vibramycin) 100 mg PO BID [facility] Stop: 06/13/18 00:00 Sodium Chloride (Nss 250ml) 250 mls @ 15 mls/hr IV .[id number] PRN PRN Reason: For Transfusion Stop: 07/04/18 14:28 Sodium Chloride (Nss 250ml) 250 mls @ 15 mls/hr IV .[id number] PRN PRN Reason: For Transfusion Stop: 07/04/18 19:09 Methylprednisolone 40 mg/ (Syringe) 0.64 mls @ 1.5 mls/min IV Q12 [facility] Stop: 07/07/18 20:59 Ipratropium Proctor (Atrovent 0.02% 0.5mg/2.5ml) 0.5 mg INH Q4RWA DENISA Stop: 07/04/18 19:59 Last Admin: 06/07/18 15:09 Dose: 0.5 mg Documented by: Levalbuterol HCl (Xopenex 0.63 Mg/3 Ml Neb) 0.63 mg NEB Q4RWA [facility] Stop: 07/04/18 19:59 Last Admin: 06/07/18 15:09 Dose: 0.63 mg Documented by: Lisinopril (Zestril) 5 mg PO DAILY [facility] Stop: 07/05/18 08:59 Last Admin: 06/07/18 07:57 Dose: 5 mg Documented by: Magnesium Hydroxide (Milk Of Magnesia) 30 ml PO Q12H PRN PRN Reason: Constipation Stop: 07/04/18 19:09 Magnesium Oxide (Mag-Ox) 400 mg PO QAM [facility] Stop: 07/05/18 08:59 Last Admin: 06/07/18 07:54 Dose: 400 mg Documented by: Metoprolol Tartrate (Lopressor) 50 mg PO QPM [facility] Stop: 07/04/18 20:59 Last Admin: 06/06/18 21:32 Dose: 50 mg Documented by: Metoprolol Tartrate (Lopressor) 75 mg PO QAM [facility] Stop: 07/05/18 08:59 Last Admin: 06/07/18 07:55 Dose: 75 mg Documented by: Posaconazole-Non- Formulary Patient's Own Med 3 ea PO DAILY [facility] Stop: 07/05/18 08:59 Last Admin: 06/07/18 07:55 Dose: 300 mg Documented by: Ondansetron HCl (Zofran) 4 mg IV Q6H PRN PRN Reason: Nausea Stop: 07/04/18 19:09 Pantoprazole Sodium (Protonix) 40 mg PO BID [facility] Stop: 07/04/18 20:59 Last Admin: 06/07/18 07:56 Dose: 40 mg Documented by: Polyethylene Glycol (Miralax Powder Packet) 17 gm PO DAILY PRN PRN Reason: Constipation Stop: 07/04/18 19:09 Last Admin: 06/05/18 23:25 Dose: 17 gm Documented by: Rosuvastatin Calcium (Crestor) 10 mg PO DAILY [facility] Stop: 07/05/18 08:59 Last Admin: 06/07/18 07:53 Dose: 10 mg Documented by:
[2018-06-07] MEDS: DOXYCYCLINE HYCLATE 100 MG CAP PO SCH (21:03)
[2018-06-07] MEDS: METOPROLOL TARTRATE 50 MG TAB PO SCH (21:05)
[2018-06-08] MEDS: IPRATROPIUM BROMIDE NEB SOLN 0.02% 2.5 ML VIAL INH SCH ×2 (07:06→11:10)
[2018-06-08] MEDS: LEVALBUTEROL HCL 0.63 MG/3 ML NEB NEB SCH ×2 (07:06→11:10)
[2018-06-08] MEDS: LISINOPRIL 5 MG TAB PO SCH (07:51)
[2018-06-08] MEDS: PANTOprazole 40 MG TAB PO SCH (07:51)
[2018-06-08] MEDS: DOXYCYCLINE HYCLATE 100 MG CAP PO SCH (07:51)
[2018-06-08] MEDS: ROSUVASTATIN CALCIUM 10 MG TAB PO SCH (07:51)
[2018-06-08] MEDS: MAGNESIUM OXIDE 400 MG TAB PO SCH (07:51)
[2018-06-08] MEDS: ALLOPURINOL 100 MG TAB PO SCH (07:51)
[2018-06-08] MEDS: ASPIRIN 81 MG ECTAB PO SCH (07:51)
[2018-06-08] MEDS: METOPROLOL TARTRATE 25 MG TAB PO SCH (07:51)
[2018-06-08] MEDS: POSACONAZOLE PO SCH (07:51)
[2018-06-08] MEDS: ACYCLOVIR 200 MG CAP PO SCH (07:52)
[2018-06-08 08:08] LABS: Hematocrit (blood only) 30.2 % (42-52); Hemoglobin 10.8 g/dL (14.0-18.0); Immature Granulocytes # (auto) 0.04 K/uL (0.00-0.02); Immature Granulocytes % (auto) 1.3 %; Lymphocytes % (auto) 39.5 %; Mean Corpuscular Hgb Conc 35.8 g/dL (32-36); Mean Corpuscular Volume 98.1 fL (80-100); Mean Platelet Volume 10.8 fL (7.4-10.4); Monocytes # (auto) 0.42 K/uL (0.11-0.59); Monocytes % (auto) 13.8 %; Neutrophils # (auto) 1.38 K/uL (1.4-6.5); Neutrophils % (auto) 45.4 %; Nucleated RBC # (auto) 0.04 K/uL (0-0); Nucleated RBC % (auto) 1.2 %; Platelet Count 364 K/uL (130-400); RDW Coefficient of Variation 18.9 % (11.5-14.5); RDW Standard Deviation 64.9 fL (36.4-46.3); Red Blood Count 3.08 M/uL (4.7-6.1); White Blood Count 3.04 K/uL (4.8-10.8)
[2018-06-08] MEDS: methylPREDNISolone 40 MG in SYRINGE 0 ML IV SCH (08:47)
--- NOTE | 2018-06-12 07:57 | Coding Query ---
CODING QUERY To promote full compliance with coding requirements relating to patient care, provider participation is requested in all cases of patent solicitor uncertainty. Please assist us with the question(s) below: Coding Question(s): Dr. Mcfarlane, In the pulmonary consult reports, Dr. Suresh documents pneumonia, but it is not documented anywhere else. The CT scan of the chest showed bilateral diffuse patchy infiltrates along with right lower lobectomy and minimal bilateral pleural effusion. Please clarify if: (x ) pneumonia was present and treated during this encounter ( ) pneumonia was not present or treated in this encounter ( ) other, please explain ( ) unable to determine Also, was the patient's pancyotpenia due to: (x ) myelodysplastic syndrome ( x ) chemotherapy ( ) other, please explain ( ) unable to determine Physician's Response(s): Thank you Tere Keith Principal Diagnosis: "that condition established after study, to be chiefly responsible for occasioning the admission of the patient to the hospital for care." Co-Existing Principal Diagnosis: "when two or more diagnoses equally meet the criteria for principal diagnosis as determined by the circumstances of admission, diagnostic work up, and/or therapy provided, and the Alphabetic Index, Tabular List, or another coding guideline does not provide sequencing direction, any one of the diagnoses may be sequenced first." "When the physician has documented what appears to be a current diagnosis in the body of the record, but has not included the diagnosis in the final diagnostic statement, the physician should be asked whether the diagnosis should be added." (Source Coding [facility] 2 QTR90. p3-4) JOANNE
--- NOTE | 2018-06-18 11:37 | Discharge Summary ---
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 and son at bedside. Patient has been receiving intermittent PRBC transfusion secondary to MDS. Has received 4 in the past month, most recently 2 days ago. Patient was recently confined at [facility] 03/02/18-03/11/19 secondary to PNA treated with IV antibiotics. CT scan at time concerning for patchy groundglass opacities and underlying left lower lobe pneumonia. Treated with IV zosyn and transitioned to IV levaquin and oral augmentin. Completed 10 day course. At that time patient was noted to be neutropenic in which he underwent MDS flow cytometry. He was later subsequently diagnosed with MDS and follows outpatient hematology Dr. Colin. Since diagnosis he had received 2 cycles of decitabine, last given 05/11/18. Further he has been taking daily Augmentin twice a day, acyclovir 400 mg twice a day and Noxafil 300 mg daily for prophylaxis given neutropenia. Unfortunately since February 2018 patient has been experiencing profound dyspnea on exertion which has limited and effected patient's QOL. Gets short of breath with minimal exertion, "like walking to the bathroom." RIOS has progressively been worsening since February. Son notes that usually after receiving 1 unit of PRBC it tends to improve his dyspnea on exertion. He last received transfusion Friday and sx have not improved. He was noted in outpatient setting today to have hgb of 6.9 therefore referred to ED. Including RIOS patient also complaints of intermittent productive cough of pink sputum. He denies fever, chills, sweats, lightheadedness, dizziness, syncope, chest pain, palpitations, shortness of breath at rest, nausea, vomiting, diarrhea, change in bowel or bladder habits. states appetite is very good. Denies any weight loss or gain. Denies any significant swelling. He did trial albuterol inhaler that was prescribed by battery wrecker operator Dr. [facility] ([facility]) in which he did note improvement with shortness of breath temporarily. In outpatient setting he has had repeat CT scan given significant PNA in 02/2018. Repeat CT Scan 04/17/18: IMPRESSION: 1. Persistent ground-glass opacities and patchy nodular airspace disease in both lower lung zones, mildly improved in the left lower lobe, and may represent persistent infectious or inflammatory process, such as pneumonia or pneumonitis. 2. Postsurgical changes in the right lung with a new tiny right pleural ef fusion. 3. Other findings, as above. Repeat 05/16/18 1. Progression of the infectious/inflammatory ground-glass opacity and subpleural nodularity seen in both upper lobes compared to the prior study. The involvement of the lower lobes is about the same. 2. Stable surgical changes from right lower lobectomy. No definite findings for recurrent or metastatic disease. 3. Gallstones. Given progression of lung disease a tele pulm consult by Dr. Glover [facility] was established by outpatient provider Dr. Colin. At that time recommendations were to continue with blood transfusion as ordered. He was also prescribed albuterol inhaler and recommend trial given air trapping noted on CT. Patient started this yesterday and noted improved with inhaler. Recommending scheduling bronchoscopy with brushing and transbronchial biopsy to further evaluate pulmonary opacities. Recommend updating echocardiogram, most recently done 08/2017 which was a negative dobutamine stress echo, normal EF, AV sclerosis and moderate MR and mild TR noted. Principal Diagnosis Anemia /Neutropneia /pneumonia Discharge Exam GENERAL: No sign of distress, HEENT: Sclera nonicteric, pink-purple bilateral equal reactive to light extraocular muscle intact Normal oral mucosa, neck: No JVD, no thyromegaly, trachea midline Lungs: Clear to auscultate, no wheeze or rales Cardiovascular: Regular S1 and S2, no murmur or gallop, no JVD, no lower extremity edema Abdomen: Soft, nontender, bowel sounds active, no hepatosplenomegaly Extremities: No rash or deformity, normal joint, Neuro: No focal neurological deficit, no dysarthria, no facial droop Psych: Alert awake oriented x3: Euthymic Skin: No rash LYMPH NODES: No cervical lymphadenopathy Discharge Data Allergies Allergy/AdvReac Type Severity Reaction Status Date / Time No Known Allergies Allergy Verified 06/04/18 12:27 Consultations 06/04/18 14:37 ED Decision to Admit Stat 06/04/18 15:48 Consult Pulmonology Routine 06/05/18 09:32 Consult Oncology Routine Ordered Studies 06/04/18 13:25 CT angio chest PE protocol Stat Hospital Course (1) Pneumonia: presented with cough /SOB /hypoxia CT chest : Negative for PE, but concerning for diffuse multilobar pulmonary opacities, small bilateral pleural effusions likely loculated on right, enlarged pulmonary arteries concerning for venolymphatic congestion Negative for influenza initally treated with broad spectrum Abx with IV Zosyn later de asclated to Po Doxycycline as pt improved clinically complete total 10 days course (2) SIRS (systemic inflammatory response syndrome): (3) Acute respiratory failure with hypoxia: due to combination of anemia and infection /pneumonia respiratory status improved to baseline 2 step exercise shows no evidence of desaturation at rest and while walking stable to be discharged home today This is an 82-year-old male who has a significant past medical history of chronic atrial fibrillation on warfarin, HTN, HLD, gout, Gilman's esophagus, 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 CXR/CT scan obtained: Negative for PE, but concerning for diffuse multilobar pulmonary opacities, small bilateral pleural effusions likely loculated on right, enlarged pulmonary arteries concerning for venolymphatic congestion Negative for influenza BNP mildly elevated 2742 Given patient's recent diagnosis of pneumonia back in February he was placed on empiric IV Zosyn Patient met SIRS criteria on admission WBC 2.02, RR > 24, HR > 90 Lactate WNL cough has improved markedly abx changed to Doxycycline complete 10 days course cont Doxycyline for atypical coverage (4) RIOS (dyspnea on exertion): resolved 2 step exercise shows no evidence of desaturation (5) Ground glass opacity present on imaging of lung: had similar CT scan in 2016 scan presented with SIRS symptom with cough treated with empiric abx for pneumonia recommend repeat CT chest cont follow up with pulmonology (6) Myelodysplastic syndrome: -Follows Dr. Colin hematology oncology will consult hematology given neutropenia ? if candidate for neupogen -Status post decitabine x2 cycles, last given 05/11/18 -Hemoglobin upon arrival 6.9, repeat 8.1 Status post 1 unit of packed RBCs Hemoglobin is improved to 9-> 10 -Continue Noxafil and acyclovir prophylaxis Hematology oncology consulted pt will be followed with Heme onc in office (7) Neutropenia: ANC improved -neutropenic precautions (8) Chronic atrial fibrillation: - -continue metoprolol and warfarin (9) Hypertension: BP stable -continue lisinopril (10) HLD (hyperlipidemia): -continue crestor (11) Barretts esophagus: -continue PPI (12) DVT prophylaxis: coumadin Disposition:Lives at home with family Follow up: stable to be discharged home today Total Time Total Time Spent Total Time Spent (In Minutes): approx 40 mins Total Time Includes: Examination of the Patient, Discharge Planning and Medication Reconciliation Discharge Plan Discharge Items Patient Disposition: Home - Home Health Services Reason For Visit: RIOS,ANEMIA,NEUTROPENIC Discharge Diagnosis: Anemia /Neutropneia /pneumonia Discharge Goals: Decrease discomfort Activity: Resume your previous activity Non-emergency contact: Primary Care Provider Call non-emergency contact if: you have any medication questions Follow-up/Referrals: Bree Colin MD [Surgeon] - 06/10/18 12:45 pm Demetrius Kmi [Physician Recycler Forklift Driver Truck Driver] - 06/24/18 2:45 am Atul Nance [Primary Care Provider] - 06/17/18 11:05 am Diet: Regular Addtl Provider Instructions: COMPLETE ANTIBIOTIC COURSE INSTRUCTED CT CHEST SHOWS PERSISTED GROUND GLASS OPACITY REPEAT CT CHEST RECOMMENDED IN NEXT 4-6 WEEKS FOLLOW UP WITH PULMONOLOGY SCHEDULED Prescriptions: New prednisone 10 mg tablet See Rx Instructions .ROUTE .COMPLEX Qty: 8 RF: 0 Continued acyclovir 200 mg Capsule 400 mg PO BID RF: 0 warfarin 5 mg Tablet 5 mg PO SUMOWETHFR Qty: 0 RF: 0 potassium chloride 10 mEq Capsule, Extended Release 10 meq PO DAILY PRN (Reason: Fluid Retention) RF: 0 allopurinol 100 mg Tablet 100 mg PO DAILY RF: 0 pantoprazole [Protonix] 40 mg Tablet,Delayed Release (Dr/Ec) 40 mg PO BID RF: 0 metoprolol tartrate 50 mg Tablet 50 mg PO QPM RF: 0 lisinopril 5 mg Tablet 5 mg PO DAILY RF: 0 furosemide 20 mg Tablet 20 mg PO DAILY PRN (Reason: Fluid Retention) RF: 0 magnesium oxide 400 mg Capsule 400 mg PO QAM RF: 0 metoprolol tartrate 75 mg Tablet 75 mg PO QAM RF: 0 amoxicillin-pot clavulanate [Augmentin] 875-125 mg Tablet 1 tab PO Q12H RF: 0 Noxafil 100 mg Tablet,Delayed Release (Dr/Ec) 300 mg PO DAILY RF: 0 aspirin 81 mg Tablet,Delayed Release (Dr/Ec) 81 mg PO DAILY RF: 0 warfarin 5 mg Tablet 2.5 mg PO TUSA RF: 0 rosuvastatin 10 mg Tablet 10 mg PO DAILY RF: 0 decitabine [Dacogen] 50 mg Recon Soln 50 mg IV DAILY RF: 0 Stand-Alone Forms: [facility] Discharge Orders: Discharge Order (Routine); Ordered 06/08/18 Ordered By: Olimpia Mcfarlane Admission Data Admit Date/Time: 06/04/18 15:48 Attending Provider: Olimpia Mcfarlane Admit Provider: Ravindra Baig Primary Care Provider: Atul Nance Other Providers: Ruben Suresh Nilesh A Service: Telemetry Other Interventions: Discharge Summary Assessment (RN) Last Done: 06/08/18 13:50 DC Date/Time DO NOT enter until pt leaves facility: 06/08/18 14:26
== END 2018-06-08 14:26 | disposition home health service (06) | DRG 189 ==
LOC: ED 11:17 → SUATTDRO 15:48 → 2W 15:48

== ENCOUNTER 2019-09-13 11:08 | Inpatient (IN) ==
--- NOTE | 2019-09-13 12:11 | XRay Report ---
XR chest 1V portable HISTORY: 84 years-old Male Sepsis acute sepsis COMPARISON: CTA of the chest and chest radiographs 06/04/2018 TECHNIQUE: Portable AP view of the chest FINDINGS: Cardiac silhouette is enlarged. Calcified plaque of the thoracic aortic arch. Unchanged right hemidia phragm elevation with right pleural calcifications. Postoperative changes of the right lung base of p rior right lobectomy. Stable positioning of the left subclavian Euurer-o-Gebb catheter. Trace pleural effusions. Mixed interstitial and alveolar opacities are redemonstrated. Progressively worsened alve olar opacities are noted throughout the left lung. Degenerative changes of the left shoulder and spin e. Right shoulder total joint arthroplasty. IMPRESSION: 1. Cardiomegaly with progressively worsened mixed interstitial and alveolar opacities, left greater t talbot. Findings are suggestive of pulmonary edema and/or multifocal pneumonia. 2. Trace pleural effusions. 3. Postoperative changes of the right hemithorax. ACT 112: Negative or not required by law. The above report was generated using voice recognition software. It may contain grammatical, syntax o r spelling errors. Electronically signed by: Anthony Lennon M.D. 09/13/2019 12:10 PM
[2019-09-13] MEDS ORDERED: ALBUT/IPRATROP 3MG/0.5MG NEB 3 ML VIAL NEB STA (12:22)
[2019-09-13 12:25] LABS: Alanine Aminotransferase 64 U/L (12-78); Albumin Level 2.5 gm/dl (3.4-5.0); Aspartate Aminotransferase 53 U/L (15-37); BUN Creatinine Ratio 17.6 (10-20); Blood Urea Nitrogen 15 mg/dl (7-18); Calcium 8.6 mg/dl (8.5-10.1); Carbon Dioxide 22 mmol/L (21-32); Chloride 100 mmol/L (98-107); Est GFR (Non-African American) 81.9; Glucose 122 mg/dl (70-99); Magnesium 1.8 mg/dl (1.8-2.4); Potassium 4.5 mmol/L (3.5-5.1); Sodium 131 mmol/L (136-145)
[2019-09-13] MEDS ORDERED: dilTIAZem HCl 5 MG/ML 5 ML VIAL IV STA (12:28)
[2019-09-13] MEDS ORDERED: SODIUM CHLORIDE 0.9% 1000ML 500 ML IV ONE (12:29)
[2019-09-13 12:30] LABS: Albumin Globulin Ratio 0.5 (0.9-2); Alkaline Phosphatase 98 U/L (45-117); Bilirubin,Total 0.9 mg/dl (0.2-1); Globulin 4.7 gm/dl (2.5-4.0); Total Protein 7.2 gm/dl (6.4-8.2); Troponin I < 0.015 ng/ml (0-0.045)
[2019-09-13 12:31] LABS: INR 3.1 (0.9-1.1); Partial Thromboplastin Ratio 1.8; Prothrombin Time 30.8 Seconds (9.0-12.0)
[2019-09-13 12:33] LABS: Partial Thromboplastin Time 50.5 Seconds (21.0-31.0)
--- NOTE | 2019-09-13 12:38 | Electrocardiogram Report ---
Test Reason : Blood Pressure : / mmHG Vent. Rate : 152 BPM Atrial Rate : 136 BPM P-R Int : 000 ms QRS Dur : 078 ms QT Int : 302 ms P-R-T Axes : 000 077 -75 degrees QTc Int : 480 ms Atrial fibrillation with rapid ventricular response Nonspecific ST and T wave abnormality Abnormal ECG When compared with ECG of 04-JUN-2018 12:13, Vent. rate has increased BY 69 BPM Nonspecific T wave abnormality, worse in Inferior leads Nonspecific T wave abnormality now evident in Lateral leads Confirmed by Niko Chavez ([id number]) on 09/13/2019 12:37:38 PM Referred By: Confirmed By:Michael Chavez
--- NOTE | 2019-09-13 12:47 | Emergency Department Note ---
Impression & Plan Atrial fibrillation with RVR, SOB (shortness of breath), Fever, Leukocytosis, AML (acute myeloblastic leukemia) ED Provider Note NAME: ERMA LEUNG AGE: 84 SEX: M : 1935 ARRIVES VIA: Walk-In INFORMANT: Patient[] ED PROVIDER(S): [Mj Cage MD] CHIEF COMPLAINT: Short of breath HISTORY OF PRESENT ILLNESS: The patient is an 84-year-old male who presents to the ER with increasing shortness of breath and chest pressure for about 2 weeks. He has AML and he just received chemotherapy at the beginning of this month. Despite treatment, he is not doing well. He has had 2 packed red blood cell transfusions in the last week or so and has had no improvement. He still feels short of breath, weak. He has pressure in his chest that is moderate in severity. Any exertion makes all his symptoms worse. The patient was seen today by his cancer specialist and referred to the ED. The family is considering hospice care as he is not responding to treatment. The patient denies any vomiting or diarrhea. No fever. No known coronavirus exposures. The patient states he just cannot seem to catch his breath, things are definitely worse today than just even yesterday. His O2 saturation in the office was 86%. REVIEW OF SYSTEMS: See HPI for pertinent positives and negatives. A total of ten systems were reviewed and were otherwise negative. PMHx/PSHx: See Below SOCIAL HISTORY: See Below. PHYSICAL EXAM: GENERAL: Patient is in moderate distress, short of breath HEENT: No acute trauma, normocephalic atraumatic, mucous membranes moist, no nasal congestion, no scleral icterus. NECK: No stridor, no adenopathy, no meningismus, trachea is midline. LUNGS: He does have some scattered crackles bilaterally, no wheezing, breath sounds do seem equal. No significant respiratory distress. HEART: Tachycardic, irregular rhythm, no murmurs. ABDOMEN: Soft, nontender, bowel sounds positive, no hernias, no peritonitis. EXTREMITIES: No cyanosis or edema, full range of motion of all the joints without pain or difficulty, no signs for acute trauma. NEUROLOGIC: Oriented x 3, no acute motor or sensory deficits, no focal weakness. SKIN: No rash, no jaundice, no diaphoresis. DIFFERENTIAL DIAGNOSIS: Reactive airway disease, pneumonia, pneumothorax, worsening malignancy, rapid A. fib or a flutter, PR, COPD, CHF, infections, cardiac ischemia, pulmonary embolism, musculoskeletal, gastrointestinal, as well as other pathologies. EMERGENCY DEPARTMENT COURSE/PROCEDURES: ECG: Indication was shortness of breath. The EKG shows atrial fibrillation with a rate of 152. There are nonspecific ST changes. No ST elevation, no PVCs. The QTc is 480. Continuous Cardiac Monitoring: An order was placed for continuous cardiac monitoring. The monitor shows a rate of 94 with atrial fibrillation. Critical Care Note: I have personally spent greater than 45 minutes of critical care time in the direct management of this patient. This includes bedside care, interpretation of diagnostic studies, and testing, discussion with consultants, patient, and family members, and other required patient management activities. This 45 minutes is in excess of all separately billable procedures. MEDICAL DECISION MAKING: There is a marked leukocytosis at 52,000, this is consistent with his recent testing and his diagnosis of AML. He has a low hemoglobin at 9.3. This though is relatively baseline looking back at previous testing. Platelet count low at 73. There were blast cells seen on the patient's white blood cell count differential. Patient's INR is elevated at 3.1--he is over anticoagulated on his Coumadin. Sodium somewhat low at 131, no kidney failure. AST mildly elevated, the bilirubin was normal. BNP was elevated consistent with potential fluid overload. Urinalysis did not show any evidence for infection. Coronavirus testing was negative. Chest film shows parenchymal congestion, this is consistent with potential infection versus possibly CHF. Abdominal and pelvis CT shows no bowel obstruction, no abscess, no evidence for diverticulitis. The patient was given IV saline, he received about 750 cc while here in the ED. He received IV Tylenol for his fever. He was given IV cefepime as empiric antibiotic coverage. He was given a bolus of IV diltiazem and was placed on a diltiazem drip. The patient presents tachycardic, short of breath and febrile. He has AML. He is considering transitioning to hospice care. The patient requires a hospital stay, further work-up and stabilization. He may in fact be someone who is transferred to hospice care. The patient was given a DuoNeb. Once his coronavirus test returned negative, he was placed on BiPAP to aid in his breathing. He was maintained on oxygen supplementation. I spoke to the patient and his family about his findings, case management has been involved. The on-call hospitalist has been consulted. The patient does seem to be somewhat improved with the above-mentioned treatment. His heart rate is improved. Past Med/Surg History Medical History AML (acute myeloblastic leukemia) chemo q3wk Barretts esophagus (Chronic) Chronic atrial fibrillation (Chronic) on warfarin - follows w/ kelechi mathieu Diverticular disease GERD (gastroesophageal reflux disease) History of kidney stones (Chronic) 1982 History of lung cancer (Resolved) R lung adenocarcinoma T1 N0 M0 status post right lower lobe lobectomy 05/08/07 History of prostate cancer (Resolved) Status post prostatectomy HLD (hyperlipidemia) Hypertension (Chronic) Pulmonary fibrosis Surgical History H/O hemicolectomy (Chronic) Due to diverticulitis H/O prostatectomy (Chronic) H/O umbilical hernia repair (Chronic) History of appendectomy (Chronic) History of bone marrow biopsy History of cataract surgery History of circumcision AN ADULT History of kidney surgery OPEN INCISION FOR LARGE KIDNEY STONE EXTRACTION. History of thoracotomy (Inactive) History of tonsillectomy (Inactive) History of total left knee replacement (Chronic) History of vascular access device port - left chest History of vitrectomy 3 SURGERIES INCLUDING SCLERAL BUCKLE (LEFT EYE) FOR DETACHED RETINA Hx of detached retina repair S/P left knee arthroscopy (Chronic) S/P lobectomy of lung (Chronic) RLL due to cancer 05/2007 S/P tonsillectomy and adenoidectomy (Chronic) Status post total shoulder arthroplasty (Chronic) Family History Brother Prostate cancer Brother Diabetes Father Diabetes Lymphoma Other Family history non-contributory Social History Preferred Language: Occitan Communication Ability: Effective Visual Impairment: No Limitations 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 Beliefs That Will Affect Care: None marital status: Current Living Situation: Spouse current occupational status: retired Feels Safe at Home: Yes Safety Concerns: Feels Safe At This Time and Afraid for Others in Home Smoking Status: Former smoker Tobacco Type: cigarettes ; Smoking End Date: 1969 ; Second Hand Exposure: No ; Hx Alcohol Use: No Hx Substance Use: No Allergies Allergies Allergy/AdvReac Type Severity Reaction Status Date / Time No Known Allergies Allergy Verified 09/13/19 13:31 Home Meds Home Medications Medication Instructions Recorded Confirmed allopurinol 100 mg PO QAM 03/02/18 09/13/19 furosemide 20 mg PO DAILY 03/02/18 09/13/19 lisinopril 5 mg PO QAM 03/02/18 09/13/19 magnesium oxide 400 mg PO QAM 03/02/18 09/13/19 metoprolol tartrate 50 mg PO QPM 03/02/18 09/13/19 metoprolol tartrate 75 mg PO QAM 03/02/18 09/13/19 pantoprazole [Protonix] 40 mg PO BID 03/02/18 09/13/19 potassium chloride 10 meq PO DAILY PRN 03/02/18 09/13/19 warfarin 5 mg PO MOWE #0 04/20/18 09/13/19 aspirin 81 mg PO DAILYBD 06/04/18 09/13/19 rosuvastatin 10 mg PO HS 06/04/18 09/13/19 warfarin 2.5 mg PO SUTUTHFRSA 06/04/18 09/13/19 acyclovir 400 mg PO BID 05/06/19 09/13/19 amoxicillin-pot clavulanate 1 tab PO BID 05/06/19 09/13/19 decitabine [Dacogen] 50 mg IV UD 05/06/19 09/13/19 fluconazole 100 mg PO QAM 05/06/19 09/13/19 multivitamin 1 tab PO QAM 09/13/19 09/13/19 Results & Data (ED) Vital Signs Vital Signs - 24 hr 09/13/19 11:36 09/13/19 11:43 09/13/19 12:30 Temperature 37.9 C H 40.0 C H Temperature Source Oral Rectal Pulse Rate 160 H Pulse Rate [Right Finger] Respiratory Rate 30 H Respiratory Effort / Characteristics Respiratory Depth Respiratory Pattern Blood Pressure 137/85 Blood Pressure [Left Arm] Blood Pressure Mean 102 Blood Pressure Mean [Left Arm] Pulse Oximetry 82 L 90 Oxygen Delivery Method Room Air Nasal Cannula Oxygen Flow Rate 3 Sepsis Recent Fever Within 48 Hours Yes Sepsis New/Unexplained Change in Mental Status No Sepsis Action Taken by Nursing No Action Required 09/13/19 12:47 09/13/19 13:17 09/13/19 13:31 Temperature Temperature Source Pulse Rate Pulse Rate [Right Finger] 109 H 133 H Respiratory Rate 22 24 Respiratory Effort / Characteristics Spontaneous Non-Labored Spontaneous Respiratory Depth Normal Respiratory Pattern Regular Blood Pressure Blood Pressure [Left Arm] 119/73 Blood Pressure Mean Blood Pressure Mean [Left Arm] 88 Pulse Oximetry 91 90 95 Oxygen Delivery Method Nasal Cannula Nasal Cannula Nasal Cannula Oxygen Flow Rate 3 3 4 Sepsis Recent Fever Within 48 Hours Sepsis New/Unexplained Change in Mental Status Sepsis Action Taken by Snf Medications Current Medication List: was personally reviewed by me Laboratory Data Attestation: I reviewed the patient's lab results. Result diagrams: 09/13/19 11:57 09/13/19 11:57 Lab Results 09/13/19 09/13/19 09/13/19 Range/Units 11:57 11:57 11:57 WBC 52.97 H* (4.8-10.8) K/uL RBC 2.70 L (4.7-6.1) M/uL Hgb 9.3 L (14.0-18.0) g/dL Hct 26.7 L (42-52) % MCV 98.9 (80-100) fL MCH 34.4 H (25-34) pg MCHC 34.8 (32-36) g/dL RDW Std Deviation 68.4 H (36.4-46.3) fL RDW Coeff of Onelia 19.3 H (11.5-14.5) % Plt Count 73 L (130-400) K/uL MPV 10.5 H (7.4-10.4) fL Neutrophils % (Manual) 1.0 % Lymphocytes % (Manual) 71.0 % Blast Cells % (Manual) 28.0 % Neutrophils # (Manual) 0.53 L (1.4-6.5) K/uL Total Absolute Neuts 0.53 L* (1.4-6.5) K/uL Lymphocytes # (Manual) 37.61 H (1.2-3.4) K/uL Total Abs Lymphocytes 37.61 H (1.2-3.4) K/uL Blast Cells # (Man) 14.83 H (0-0) K/uL PT 30.8 H (9.0-12.0) Seconds INR 3.1 H (0.9-1.1) APTT 50.5 H* (21.0-31.0) Seconds PTT Ratio 1.8 Sodium 131 L (136-145) mmol/L Potassium 4.5 (3.5-5.1) mmol/L Chloride 100 (98-107) mmol/L Carbon Dioxide 22 (21-32) mmol/L Anion Gap 8.0 (3-11) BUN 15 (7-18) mg/dl Creatinine 0.83 (0.6-1.4) mg/dl Est Cr Clr Drug Dosing Not Reportable Est GFR ( Amer) 95.0 Est GFR (Non-Af Amer) 81.9 BUN/Creatinine Ratio 17.6 (10-20) Glucose 122 H (70-99) mg/dl POC Lactic Acid Derrell (0.90-1.70) mmol/L Calcium 8.6 (8.5-10.1) mg/dl Magnesium 1.8 (1.8-2.4) mg/dl Total Bilirubin 0.9 (0.2-1) mg/dl AST 53 H (15-37) U/L ALT 64 (12-78) U/L Alkaline Phosphatase 98 (45-117) U/L Troponin I < 0.015 (0-0.045) ng/ml NT-Pro-B Natriuret Pep (0-1800) pg/ml Total Protein 7.2 (6.4-8.2) gm/dl Albumin 2.5 L (3.4-5.0) gm/dl Globulin 4.7 H (2.5-4.0) gm/dl Albumin/Globulin Ratio 0.5 L (0.9-2) Urine Color Urine Appearance (Clear) Urine pH (4.5-7.5) Ur Specific [place] (1.000-1.030) Urine Protein (Negative) Urine Glucose (UA) (Negative) Urine Ketones (Negative) Urine Blood (Negative) Urine Nitrite (Negative) Urine Bilirubin (Negative) Urine Urobilinogen (Negative) Ur Leukocyte Esterase (Negative) Urine WBC (Auto) (0-5) /hpf Urine RBC (Auto) (0-4) /hpf U Hyaline Cast (Auto) (0-5) /lpf U Epithel Cells (Auto) (0-5) /lpf Urine Bacteria (Auto) (Negative) COVID-19 PCR (Negative) 09/13/19 09/13/19 09/13/19 Range/Units 11:57 12:05 12:40 WBC (4.8-10.8) K/uL RBC (4.7-6.1) M/uL Hgb (14.0-18.0) g/dL Hct (42-52) % MCV (80-100) fL MCH (25-34) pg MCHC (32-36) g/dL RDW Std Deviation (36.4-46.3) fL RDW Coeff of Onelia (11.5-14.5) % Plt Count (130-400) K/uL MPV (7.4-10.4) fL Neutrophils % (Manual) % Lymphocytes % (Manual) % Blast Cells % (Manual) % Neutrophils # (Manual) (1.4-6.5) K/uL Total Absolute Neuts (1.4-6.5) K/uL Lymphocytes # (Manual) (1.2-3.4) K/uL Total Abs Lymphocytes (1.2-3.4) K/uL Blast Cells # (Man) (0-0) K/uL PT (9.0-12.0) Seconds INR (0.9-1.1) APTT (21.0-31.0) Seconds PTT Ratio Sodium (136-145) mmol/L Potassium (3.5-5.1) mmol/L Chloride (98-107) mmol/L Carbon Dioxide (21-32) mmol/L Anion Gap (3-11) BUN (7-18) mg/dl Creatinine (0.6-1.4) mg/dl Est Cr Clr Drug Dosing Est GFR ( Amer) Est GFR (Non-Af Amer) BUN/Creatinine Ratio (10-20) Glucose (70-99) mg/dl POC Lactic Acid Derrell 1.35 (0.90-1.70) mmol/L Calcium (8.5-10.1) mg/dl Magnesium (1.8-2.4) mg/dl Total Bilirubin (0.2-1) mg/dl AST (15-37) U/L ALT (12-78) U/L Alkaline Phosphatase (45-117) U/L Troponin I (0-0.045) ng/ml NT-Pro-B Natriuret Pep 3669 H (0-1800) pg/ml Total Protein (6.4-8.2) gm/dl Albumin (3.4-5.0) gm/dl Globulin (2.5-4.0) gm/dl Albumin/Globulin Ratio (0.9-2) Urine Color Dark Yellow Urine Appearance Clear (Clear) Urine pH 5.0 (4.5-7.5) Ur Specific [place] 1.020 (1.000-1.030) Urine Protein 1+ H (Negative) Urine Glucose (UA) Negative (Negative) Urine Ketones Negative (Negative) Urine Blood 2+ H (Negative) Urine Nitrite Negative (Negative) Urine Bilirubin Negative (Negative) Urine Urobilinogen Negative (Negative) Ur Leukocyte Esterase Negative (Negative) Urine WBC (Auto) 1-5 (0-5) /hpf Urine RBC (Auto) 0-4 (0-4) /hpf U Hyaline Cast (Auto) 1-5 (0-5) /lpf U Epithel Cells (Auto) 0-5 (0-5) /lpf Urine Bacteria (Auto) Negative (Negative) COVID-19 PCR (Negative) 09/13/19 Range/Units 13:26 WBC (4.8-10.8) K/uL RBC (4.7-6.1) M/uL Hgb (14.0-18.0) g/dL Hct (42-52) % MCV (80-100) fL MCH (25-34) pg MCHC (32-36) g/dL RDW Std Deviation (36.4-46.3) fL RDW Coeff of Onelia (11.5-14.5) % Plt Count (130-400) K/uL MPV (7.4-10.4) fL Neutrophils % (Manual) % Lymphocytes % (Manual) % Blast Cells % (Manual) % Neutrophils # (Manual) (1.4-6.5) K/uL Total Absolute Neuts (1.4-6.5) K/uL Lymphocytes # (Manual) (1.2-3.4) K/uL Total Abs Lymphocytes (1.2-3.4) K/uL Blast Cells # (Man) (0-0) K/uL PT (9.0-12.0) Seconds INR (0.9-1.1) APTT (21.0-31.0) Seconds PTT Ratio Sodium (136-145) mmol/L Potassium (3.5-5.1) mmol/L Chloride (98-107) mmol/L Carbon Dioxide (21-32) mmol/L Anion Gap (3-11) BUN (7-18) mg/dl Creatinine (0.6-1.4) mg/dl Est Cr Clr Drug Dosing Est GFR ( Amer) Est GFR (Non-Af Amer) BUN/Creatinine Ratio (10-20) Glucose (70-99) mg/dl POC Lactic Acid Derrell (0.90-1.70) mmol/L Calcium (8.5-10.1) mg/dl Magnesium (1.8-2.4) mg/dl Total Bilirubin (0.2-1) mg/dl AST (15-37) U/L ALT (12-78) U/L Alkaline Phosphatase (45-117) U/L Troponin I (0-0.045) ng/ml NT-Pro-B Natriuret Pep (0-1800) pg/ml Total Protein (6.4-8.2) gm/dl Albumin (3.4-5.0) gm/dl Globulin (2.5-4.0) gm/dl Albumin/Globulin Ratio (0.9-2) Urine Color Urine Appearance (Clear) Urine pH (4.5-7.5) Ur Specific [place] (1.000-1.030) Urine Protein (Negative) Urine Glucose (UA) (Negative) Urine Ketones (Negative) Urine Blood (Negative) Urine Nitrite (Negative) Urine Bilirubin (Negative) Urine Urobilinogen (Negative) Ur Leukocyte Esterase (Negative) Urine WBC (Auto) (0-5) /hpf Urine RBC (Auto) (0-4) /hpf U Hyaline Cast (Auto) (0-5) /lpf U Epithel Cells (Auto) (0-5) /lpf Urine Bacteria (Auto) (Negative) COVID-19 PCR NEGATIVE (Negative) Administered Medications Acyclovir (Zovirax) 400 mg PO BID DENISA Stop: 10/13/19 20:59 Last Admin: 09/13/19 20:31 Dose: 400 mg Documented by: [id number] Albuterol (Duoneb) 3 ml NEB QIDR DENISA Stop: 10/13/19 18:59 Last Admin: 09/13/19 19:51 Dose: 3 ml Documented by: [id number] Diltiazem HCl 125 mg/ Dextrose 125 mls @ 15 mls/hr IV .[id number] DENISA; Protocol Stop: 10/13/19 12:29 Last Titration: 09/13/19 18:57 Dose: 15 mg/hr, 15 mls/hr Documented by: [id number] Cosigned by: [id number] Titration: 09/13/19 17:36 Dose: 15 mg/hr, 15 mls/hr Documented by: [id number] Cosigned by: [id number] Titration: 09/13/19 16:47 Dose: 10 mg/hr, 10 mls/hr Documented by: [id number] Cosigned by: [id number] Admin: 09/13/19 13:20 Dose: 5 mg/hr, 5 mls/hr Documented by: [id number] Cosigned by: [id number] Sodium Chloride (Nss 1000ml) 1,000 mls @ 80 mls/hr IV .[id number] DENISA Stop: 10/13/19 16:35 Last Infusion: 09/13/19 20:31 Dose: 80 mls/hr Documented by: [id number] Infusion: 09/13/19 18:41 Dose: 0 mls/hr Documented by: [id number] Admin: 09/13/19 17:18 Dose: 80 mls/hr Documented by: [id number] Cefepime HCl 2,000 mg/ Syringe 20 mls @ 5 mls/min IV Q8H DENISA; Protocol Stop: 09/20/19 20:59 Last Admin: 09/13/19 20:30 Dose: 5 mls/min Documented by: [id number] Metoprolol Tartrate (Lopressor) 50 mg PO QPM DENISA Stop: 10/13/19 20:59 Last Admin: 09/13/19 20:30 Dose: 50 mg Documented by: [id number] Pantoprazole Sodium (Protonix) 40 mg PO BID DENISA Stop: 10/13/19 20:59 Last Admin: 09/13/19 20:31 Dose: 40 mg Documented by: [id number] Rosuvastatin Calcium (Crestor) 10 mg PO HS DENISA Stop: 10/13/19 20:59 Last Admin: 09/13/19 20:31 Dose: 10 mg Documented by: [id number] Discontinued Medications Acetaminophen (Ofirmev) 1,000 mg IV NOW STA Stop: 09/13/19 12:53 Last Admin: 09/13/19 12:58 Dose: 1,000 mg Documented by: [id number] Albuterol (Duoneb) 3 ml NEB NOW STA Stop: 09/13/19 12:23 Last Admin: 09/13/19 12:45 Dose: 3 ml Documented by: [id number] Diltiazem HCl (Cardizem) 15 mg IV NOW STA Stop: 09/13/19 12:29 Last Admin: 09/13/19 12:40 Dose: 15 mg Documented by: [id number] Cosigned by: [id number] Sodium Chloride (Nss 1000ml) 500 mls @ 999 mls/hr IV .Q31M ONE Stop: 09/13/19 12:59 Last Infusion: 09/13/19 13:19 Dose: 0 mls/hr Documented by: [id number] Admin: 09/13/19 12:39 Dose: 999 mls/hr Documented by: [id number] Cefepime HCl (Maxipime) 2,000 mg in 20 mls @ 5 mls/min IV NOW STA; Protocol Stop: 09/13/19 12:55 Last Admin: 09/13/19 12:58 Dose: 5 mls/min Documented by: [id number] Sodium Chloride (Nss) 250 mls @ 999 mls/hr IV .Q16M ONE Stop: 09/13/19 14:50 Last Infusion: 09/13/19 16:46 Dose: 0 mls/hr Documented by: [id number] Admin: 09/13/19 14:52 Dose: 999 mls/hr Documented by: [id number] Vancomycin HCl 2,250 mg/ (Sodium Chloride) 545 mls @ 200 mls/hr IV NOW ONE Stop: 09/13/19 20:28 Last Infusion: 09/13/19 20:56 Dose: 0 mls/hr Documented by: [id number] Admin: 09/13/19 17:47 Dose: 200 mls/hr Documented by: [id number] Imaging Data Radiologist's Impression: XR chest 1V portable HISTORY: 84 years-old Male Sepsis acute sepsis COMPARISON: CTA of the chest and chest radiographs 06/04/2018 TECHNIQUE: Portable AP view of the chest FINDINGS: Cardiac silhouette is enlarged. Calcified plaque of the thoracic aortic arch. Unchanged right hemidiaphragm elevation with right pleural calcifications. Postoperative changes of the right lung base of prior right lobectomy. Stable positioning of the left subclavian [id number]-[id number] catheter. Trace pleural effusions. Mixed interstitial and alveolar opacities are redemonstrated. Progressively worsened alveolar opacities are noted throughout the left lung. Degenerative changes of the left shoulder and spine. Right shoulder total joint arthroplasty. IMPRESSION: 1. Cardiomegaly with progressively worsened mixed interstitial and alveolar opacities, left greater than. Findings are suggestive of pulmonary edema and/or multifocal pneumonia. 2. Trace pleural effusions. 3. Postoperative changes of the right hemithorax. ABDOMEN AND PELVIS CT WITHOUT CONTRAST CT DOSE: 1074.83 mGycm HISTORY: Acute generalized abdominal pain poss divertic TECHNIQUE: Multiaxial CT images of the abdomen and pelvis were performed without contrast. A dose lowering technique was utilized adhering to the principles of ALARA. COMPARISON STUDY: CT abdomen and pelvis 07/28/2016, CTA chest 06/04/2018. FINDINGS: Bibasilar patchy groundglass and consolidative opacities appear similar to the 06/04/2018 exam. Moderate hemidiaphragmatic elevation. Trace right pleural effusion. No pneumatosis or pneumoperitoneum. Moderate cardiomegaly. Coronary artery calcifications. Limited evaluation of the solid abdominal organs without the use of IV contrast. Within the limitations of the study the spleen and adrenal glands are unremarkable. Mild generalized pancreatic atrophy. Cholelithiasis with mild gallbladder distention. No biliary ductal dilation. Probable mild fatty infiltration of the liver. The previously noted ill-defined 4.6 cm hyperdensity within the medial segment of the liver is not definitively seen on today's study. Mild nonspecific bilateral perinephric stranding. No ureteral calculi or obstructive uropathy. Mural fibrofatty changes of the urinary bladder. Prostatectomy. Small fat filled bilateral inguinal hernias. Extensive calcified plaque of the abdominal aorta without aneurysm. No adenopathy. Unchanged moderate diffuse wall thickening of the stomach with partial dis tention. Colonic diverticulosis without acute diverticulitis. Mild fecal retention. Postoperative changes of prior partial right hemicolectomy. Prior ventral abdominal wall herniorrhaphy. There are several small fat filled ventral abdominal wall hernias. Degenerative changes of the spine, pelvis and hips. 30% T12 compression deformity with 4 mm retropulsion is new from comparison. No paravertebral edema. IMPRESSION: 1. Colonic diverticulosis without acute diverticulitis. 2. Prior right hemicolectomy. 3. Unchanged wall thickening of the stomach suggestive of partial distention versus gastritis. 4. Cholelithiasis. 5. Trace right pleural effusion with patchy groundglass and consolidative opac ities of the lung bases, unchanged from comparison. These findings are new from 2017 and may be secondary to chronic pneumonitis versus progressive fibrosis. 6. 30% T12 compression deformity with mild retropulsion is technically age- indeterminate however is new from 06/04/2018. No paravertebral edema. Subacute to chronic etiology is favored. Blood Pressure Blood Pressure Findings: Normal blood pressure Blood Pressure Disposition: further management by hospitalist Discharge Plan Visit Data *Final* Discharge Date/Time: 09/13/19 15:05 Chief Complaint: Referred by Doctor Stated Complaint: END OF LIFE PREP ED Provider: Mj Cage Discharge Problem: Atrial fibrillation with RVR, SOB (shortness of breath), Fever, Leukocytosis, AML (acute myeloblastic leukemia) Patient Disposition: Admitted As Inpatient Condition: Serious Discharge Instructions Interventions: ED Discharge Assessment Last Done: 09/13/19 15:05 Discharge Problem: Fever Qualifiers: Fever type: unspecified Qualified Code(s): R50.9 - Fever, unspecified Leukocytosis Qualifiers: Leukocytosis type: unspecified Qualified Code(s): D72.829 - Elevated white blood cell count, unspecified AML (acute myeloblastic leukemia) Qualifiers: Leukemia Active/Remission status: without remission Qualified Code(s): C92.00 - Acute myeloblastic leukemia, not having achieved remission
[2019-09-13] MEDS ORDERED: ACETAMINOPHEN 1000 MG/100 ML IV IV STA (12:52)
[2019-09-13] MEDS ORDERED: CEFEPIME 2,000 MG/20 ML VIAL IV STA (12:52)
[2019-09-13 12:56] LABS: Appearance Urine Clear (Clear); Bacteria Urine Automated Negative (Negative); Bilirubin Urine Negative (Negative); Blood Urine 2+ (Negative); Color Urine Dark Yellow; Epithelial Cell Urine Auto 0-5 /lpf (0-5); Glucose Urine UA Negative (Negative); Ketones Urine Negative (Negative); Leukocyte Esterase Urine Negative (Negative); Nitrite Urine Negative (Negative); Protein Urine 1+ (Negative); RBC Urine Automated 0-4 /hpf (0-4); Urobilinogen Urine Negative (Negative)
[2019-09-13] MEDS: dilTIAZem HCL 125 MG in DEXTROSE 5% 100 ML IV SCH ×2 (13:20→22:58)
[2019-09-13 13:37] LABS: Hematocrit (blood only) 26.7 % (42-52); Hemoglobin 9.3 g/dL (14.0-18.0); Mean Corpuscular Hemoglobin 34.4 pg (25-34); Mean Corpuscular Hgb Conc 34.8 g/dL (32-36); Mean Corpuscular Volume 98.9 fL (80-100); Mean Platelet Volume 10.5 fL (7.4-10.4); Platelet Count 73 K/uL (130-400); RDW Coefficient of Variation 19.3 % (11.5-14.5); RDW Standard Deviation 68.4 fL (36.4-46.3); White Blood Count 52.97 K/uL (4.8-10.8)
[2019-09-13 13:39] LABS: ALC (manual) 37.61 K/uL (1.2-3.4); ANC (manual) 0.53 K/uL (1.4-6.5); Blast # (manual) 14.83 K/uL (0-0); Lymphocytes # (manual) 37.61 K/uL (1.2-3.4); Neutrophils # (manual) 0.53 K/uL (1.4-6.5)
[2019-09-13] MEDS ORDERED: SODIUM CHLORIDE 0.9% 250 ML IV ONE (14:35)
--- NOTE | 2019-09-13 14:53 | History & Physical Report ---
Date of Service September 13, 2019 Assessment & Plan (1) Acute respiratory failure with hypoxia: (2) Neutropenic sepsis: (3) Pneumonia: This is an 84-year-old male who has significant past medical history of chronic atrial fibrillation anticoagulated on warfarin, HTN, HLD, diet-controlled T2DM, history of lung cancer status post resection, history of prostate cancer, pulmonary fibrosis, MDS with excess blast diagnosed in 03/2018 who presents to ED at the referral of his dehydrogenation operator secondary to worsening shortness of breath x2 weeks. In ED patient presented in rapid atrial fibrillation with rates 150s to 160s, febrile at 40.0 C and hypoxic requiring 3 to 4 L of O2 via NC. Lab work notable for significant leukocytosis 52.97K with predominant lymphocytes and neutropenia. He also has evidence of excess blast. He is otherwise pancytopenic with a stable H&H of 9.3 and 26.7, platelet count 73, sodium 131, BUN 15, creatinine 0.83, glucose 122, lactic acid 1.35, proBNP 3669, troponin WNL. Urinalysis negative for infection. COVID-19 negative. Chest x-ray concerning for cardiomegaly with progressively worsening mixed interstitial and alveolar opacities consistent with multifocal pneumonia or pulmonary edema. He was started on diltiazem bolus and drip secondary to A. fib with RVR, received IV fluid and IV cefepime while in ED. admit to PCU IV antibiotics vanco and cefepime continue acyclovir and diflucan given neutropenic IVF 80cc/hr Continue bipap as needed supplemental O2 as needed/incentive spirometry albuterol neb prn (4) Atrial fibrillation with RVR: Patient with chronic Atrial fibrillation anticoagulated on warfarin and rate controlled on metoprolol as outpatient presented in afib with RVR -- started on diltiazem bolus and gtt continue diltiazem and metoprolol - titrate as able treat underlying sepsis hold warfain, INR SUPRATHERAPEUTIC repeat INR in a.m. (warfarin 5mg mon/wed and 2.5mg all other days) (5) Myelodysplastic syndrome: MDS with excessive blast type 2 - follows Dr. Rose last treatment 08/31-09/02 decitabine Continues to be neutropenic and otherwise pancytopenic Did have a PRBC times two 1 week ago without improvement Plan is to transition to palliative if rebounds from acute sepsis given failure of chemotherapy (6) Hypertension: hold lisinopril and Lasix given sepsis monitor BP, currently stable (7) HLD (hyperlipidemia): continue crestor (8) T2DM (type 2 diabetes mellitus): diet controlled t2dm, last a1c 6.7 on 12/2018 obtain a1c in a.m. monitor bsg for now, if consistently > 180 implement insulin protocol (9) Pulmonary fibrosis: As above (10) DVT prophylaxis: Warfarin hold for now given 3.1, repeat in a.m. Disposition: admit to PCU Follow up: PCP Dr. Nance for routine care; along with Dr. Rose oncology Pt was seen and examined in collaboration with Dr. Avilez, please see addendum History of Present Illness Chief Complaint: Referred by dehydrogenation operator/worsening shortness of breath x2 weeks. Primary Care Provider: Atul Nance MD This is an 84-year-old male who has significant past medical history of chronic atrial fibrillation anticoagulated on warfarin, HTN, HLD, diet-controlled T2DM, history of lung cancer status post resection, history of prostate cancer, pulmonary fibrosis, MDS with excess blast diagnosed in 03/2018 who presents to ED at the referral of his dehydrogenation operator secondary to worsening shortness of breath x2 weeks. He is followed by Dr. Rose secondary to active MDS with excess blasts. He was diagnosed in 03/2018 in which he was receiving decitabine x3 days every 4 weeks. Treatment started 11/11/2018. His last treatment was 08/31 to 09/02. He has had minimal treatments over the past several weeks secondary to pancytopenia cyst, specifically neutropenia. He continued to be neutropenic but on 08/31 underwent decitabine therapy due to worsening progression of cancer. At that time it was determined either undergoing chemotherapy versus symptom management, and family underwent chemotherapy. Since sx started over the past 2- 3 days symptoms have significantly got worse including SOB at rest, RIOS, hemoptysis, chest pain with coughing or exertion, fever, nausea, and decreased appetite. Approx 1 week ago he did have abdominal pain and constipation but this has since subsided. Denies chills, sweats, lightheaded, dizziness, n/v/d, dysuria, increased urg/freq with urination, melena and hematochezia. is at bedside and is aware of pt critical state and failing chemo. Goal is to get patient stabilized to return to home with palliative care. He did receive 2 blood transfusions in the past 2 weeks and was due for another tomorrow; however he did have itching after transfusion and said he didn't tolerate well. He hasn't monitored weight lately; although no lower ext edema, orthopnea or PND. In ED patient presented in rapid atrial fibrillation with rates 150s to 160s, febrile at 40.0 Celsius and hypoxic requiring 3 to 4 L of O2 via NC. Lab work notable for significant leukocytosis 52.97K with predominant l ymphocytes and neutropenia. He also has evidence of excess blast. He is otherwise pancytopenic with a stable H&H of 9.3 and 26.7, platelet count 73, sodium 131, BUN 15, creatinine 0.83, glucose 122, lactic acid 1.35, proBNP 3669, troponin WNL. Urinalysis negative for infection. COVID-19 negative. Chest x-ray concerning for cardiomegaly with progressively worsening mixed interstitial and alveolar opacities consistent with multifocal pneumonia or pulmonary edema. He was started on diltiazem bolus and drip secondary to A. fib with RVR, received IV fluid and IV cefepime while in ED. Allergies Allergy/AdvReac Type Severity Reaction Status Date / Time No Known Allergies Allergy Verified 09/13/19 13:31 Home Medications Home Medications Medication Instructions Recorded Confirmed Type allopurinol 100 mg PO QAM 03/02/18 09/13/19 History furosemide 20 mg PO DAILY 03/02/18 09/13/19 History lisinopril 5 mg PO QAM 03/02/18 09/13/19 History magnesium oxide 400 mg PO QAM 03/02/18 09/13/19 History metoprolol tartrate 50 mg PO QPM 03/02/18 09/13/19 History metoprolol tartrate 75 mg PO QAM 03/02/18 09/13/19 History pantoprazole [Protonix] 40 mg PO BID 03/02/18 09/13/19 History potassium chloride 10 meq PO DAILY PRN 03/02/18 09/13/19 History warfarin 5 mg PO MOWE #0 04/20/18 09/13/19 History aspirin 81 mg PO DAILYBD 06/04/18 09/13/19 History rosuvastatin 10 mg PO HS 06/04/18 09/13/19 History warfarin 2.5 mg PO SUTUTHFRSA 06/04/18 09/13/19 History acyclovir 400 mg PO BID 05/06/19 09/13/19 History amoxicillin-pot clavulanate 1 tab PO BID 05/06/19 09/13/19 History decitabine [Dacogen] 50 mg IV UD 05/06/19 09/13/19 History fluconazole 100 mg PO QAM 05/06/19 09/13/19 History multivitamin 1 tab PO QAM 09/13/19 09/13/19 History Past Med/Surg History Medical History AML (acute myeloblastic leukemia) chemo q3wk Barretts esophagus (Chronic) Chronic atrial fibrillation (Chronic) on warfarin - follows w/ kelechi mathieu Diverticular disease GERD (gastroesophageal reflux disease) History of kidney stones (Chronic) 1982 History of lung cancer (Resolved) R lung adenocarcinoma T1 N0 M0 status post right lower lobe lobectomy 05/08/07 History of prostate cancer (Resolved) Status post prostatectomy HLD (hyperlipidemia) Hypertension (Chronic) Pulmonary fibrosis Surgical History H/O hemicolectomy (Chronic) Due to diverticulitis H/O prostatectomy (Chronic) H/O umbilical hernia repair (Chronic) History of appendectomy (Chronic) History of bone marrow biopsy History of cataract surgery History of circumcision AN ADULT History of kidney surgery OPEN INCISION FOR LARGE KIDNEY STONE EXTRACTION. History of thoracotomy (Inactive) History of tonsillectomy (Inactive) History of total left knee replacement (Chronic) History of vascular access device port - left chest History of vitrectomy 3 SURGERIES INCLUDING SCLERAL BUCKLE (LEFT EYE) FOR DETACHED RETINA Hx of detached retina repair S/P left knee arthroscopy (Chronic) S/P lobectomy of lung (Chronic) RLL due to cancer 05/2007 S/P tonsillectomy and adenoidectomy (Chronic) Status post total shoulder arthroplasty (Chronic) Family History Brother Prostate cancer Brother Diabetes Father Diabetes Lymphoma Other Family history non-contributory Social History Preferred Language: Lithuanian Communication Ability: Effective Visual Impairment: No Limitations Twister Tender Paper Required: No Beliefs That Will Affect Care: None marital status: Current Living Situation: Spouse current occupational status: retired Feels Safe at Home: Yes Safety Concerns: Feels Safe At This Time and Afraid for Others in Home Smoking Status: Former smoker Tobacco Type: cigarettes ; Smoking End Date: 1969 ; Second Hand Exposure: No ; Hx Alcohol Use: No Hx Substance Use: No Review of Systems Review of Systems: All systems reviewed & are unremarkable except as noted in HPI & below Physical Exam Physical Exam: please refer to Dr. Avilez addendum for details regarding physical exam. Results & Data Results & Data ([facility]) Vital Signs (Past 12 Hours) Vital Signs Temp Pulse Pulse Resp BP BP Pulse Ox 09/13/19 13:31 95 09/13/19 13:17 133 H 24 119/73 90 09/13/19 12:47 109 H 22 91 09/13/19 12:30 40.0 C H 90 09/13/19 11:43 37.9 C H 09/13/19 11:36 160 H 30 H 137/85 82 L Laboratory Results Short CBC 09/13/19 09/13/19 Range/Units 11:57 13:26 WBC 52.97 H* (4.8-10.8) K/uL Hgb 9.3 L (14.0-18.0) g/dL Hct 26.7 L (42-52) % Plt Count 73 L (130-400) K/uL COVID-19 PCR NEGATIVE (Negative) BMP 09/13/19 11:57 Sodium 131 L Potassium 4.5 Chloride 100 Carbon Dioxide 22 BUN 15 Creatinine 0.83 Glucose 122 H Calcium 8.6 Cardiac Enzymes 09/13/19 Range/Units 11:57 Troponin I < 0.015 (0-0.045) ng/ml Liver Function 09/13/19 Range/Units 11:57 Total Bilirubin 0.9 (0.2-1) mg/dl AST 53 H (15-37) U/L ALT 64 (12-78) U/L Alkaline Phosphatase 98 (45-117) U/L Albumin 2.5 L (3.4-5.0) gm/dl Urine 09/13/19 Range/Units 12:40 Urine Color Dark Yellow Urine Appearance Clear (Clear) Urine pH 5.0 (4.5-7.5) Ur Specific Mackay 1.020 (1.000-1.030) Urine Protein 1+ H (Negative) Urine Glucose (UA) Negative (Negative) Diagnostic Findings CXR: IMPRESSION: 1. Cardiomegaly with progressively worsened mixed interstitial and alveolar opacities, left greater than. Findings are suggestive of pulmonary edema and/or multifocal pneumonia. 2. Trace pleural effusions. 3. Postoperative changes of the right hemithorax. Medications Administered Diltiazem HCl 125 mg/ Dextrose 125 mls @ 5 mls/hr IV .Q24H DENISA; Protocol Stop: 10/13/19 12:29 Last Admin: 09/13/19 13:20 Dose: 5 mg/hr, 5 mls/hr Documented by: [id number] Cosigned by: [id number] Discontinued Medications Acetaminophen (Ofirmev) 1,000 mg IV NOW STA Stop: 09/13/19 12:53 Last Admin: 09/13/19 12:58 Dose: 1,000 mg Documented by: [id number] Albuterol (Duoneb) 3 ml NEB NOW STA Stop: 09/13/19 12:23 Last Admin: 09/13/19 12:45 Dose: 3 ml Documented by: [id number] Diltiazem HCl (Cardizem) 15 mg IV NOW STA Stop: 09/13/19 12:29 Last Admin: 09/13/19 12:40 Dose: 15 mg Documented by: [id number] Cosigned by: [id number] Sodium Chloride (Nss 1000ml) 500 mls @ 999 mls/hr IV .Q31M ONE Stop: 09/13/19 12:59 Last Infusion: 09/13/19 13:19 Dose: 0 mls/hr Documented by: [id number] Admin: 09/13/19 12:39 Dose: 999 mls/hr Documented by: [id number] Cefepime HCl (Maxipime) 2,000 mg in 20 mls @ 5 mls/min IV NOW STA; Protocol Stop: 09/13/19 12:55 Last Admin: 09/13/19 12:58 Dose: 5 mls/min Documented by: [id number] ECG Rate (beats per minute): 152 Rhythm: atrial fibrillation Findings: + nonspecific-ST abn Code Status & VTE Plan VTE Prophylaxis Plan VTE Prophylaxis will be ordered: Yes Supervising Physician Co-Signing Physician Notes History and physical exam performed by me. History notable for 84-year-old male who has significant past medical history of chronic atrial fibrillation anticoagulated on warfarin, HTN, HLD, diet- controlled T2DM, history of lung cancer status post resection, history of prostate cancer, pulmonary fibrosis, MDS with excess blast diagnosed in 03/2018 who presents to ED at the referral of his dehydrogenation operator secondary to worsening shortness of breath x2 weeks Detailed history as documented above. On physical exam, General: No acute distress and not ill appearing Eyes: PERRL, conjunctivae normal, not pale, anicteric sclerae, EOM intact bilaterally ENMT: External ear and nose normal, oropharynx normal Respiratory: Tachypneic, bilateral coarse breath sound and crackles Cardiovascular: Pulse is iregular, tachycardic, S1-2. Gastrointestinal (Abdomen): Abdomen is not distended, soft, non-tender to palpation, no guarding, no palpable hepatosplenomegaly, normal bowel sounds Neurologic: Alert and oriented x 3, No focal weakness, sensation grossly intact Psychiatric: Euthymic affect Labs significant for leukocytosis of 52, absolute neutrophil of 0.53, lymphocytes of 37, blast cells of 14, INR 3.1, sodium of 131, lactate of 1.35, BNP of 3669, COVID negative Chest x-ray showed mixed interstitial and alveolar opacities suggestive of possible multifocal pneumonia. -Acute hypoxic respiratory failure -Sepsis secondary to multifocal pneumonia -A. fib with RVR -MDS with excessive blast Currently on BIPAP Patient wants to be DNR. at bedside Get ABG Continue iv vanc and cefepime for now Follow-up blood cultures Continue acyclovir and Diflucan IV fluids Continue Cardizem drip for rate control INR is currently supratherapeutic. Hold Coumadin and monitor INR Other plan as detailed in Deana Del Valle's note (1) Hypertension Hypertension type: essential hypertension Qualified Code(s): I10 - Essential (primary) hypertension
[2019-09-13] MEDS ORDERED: VANCOMYCIN CONSULT ACTIVE PRN (15:25)
--- NOTE | 2019-09-13 16:12 | CT Scan Report ---
ABDOMEN AND PELVIS CT WITHOUT CONTRAST CT DOSE: 1074.83 mGycm HISTORY: Acute generalized abdominal pain poss divertic TECHNIQUE: Multiaxial CT images of the abdomen and pelvis were performed without contrast. A dose lo wering technique was utilized adhering to the principles of ALARA. COMPARISON STUDY: CT abdomen and pelvis 07/28/2016, CTA chest 06/04/2018. FINDINGS: Bibasilar patchy groundglass and consolidative opacities appear similar to the 06/04/2018 exam. Moderat e hemidiaphragmatic elevation. Trace right pleural effusion. No pneumatosis or pneumoperitoneum. Mode rate cardiomegaly. Coronary artery calcifications. Limited evaluation of the solid abdominal organs w ithout the use of IV contrast. Within the limitations of the study the spleen and adrenal glands are unremarkable. Mild generalized pancreatic atrophy. Cholelithiasis with mild gallbladder distention. N o biliary ductal dilation. Probable mild fatty infiltration of the liver. The previously noted ill-de fined 4.6 cm hyperdensity within the medial segment of the liver is not definitively seen on today's study. Mild nonspecific bilateral perinephric stranding. No ureteral calculi or obstructive uropathy. Mural fibrofatty changes of the urinary bladder. Prostatectomy. Small fat filled bilateral inguinal hernias . Extensive calcified plaque of the abdominal aorta without aneurysm. No adenopathy. Unchanged moderate diffuse wall thickening of the stomach with partial distention. Colonic diverticul osis without acute diverticulitis. Mild fecal retention. Postoperative changes of prior partial right hemicolectomy. Prior ventral abdominal wall herniorrhaphy. There are several small fat filled ventra l abdominal wall hernias. Degenerative changes of the spine, pelvis and hips. 30% T12 compression def ormity with 4 mm retropulsion is new from comparison. No paravertebral edema. IMPRESSION: 1. Colonic diverticulosis without acute diverticulitis. 2. Prior right hemicolectomy. 3. Unchanged wall thickening of the stomach suggestive of partial distention versus gastritis. 4. Cholelithiasis. 5. Trace right pleural effusion with patchy groundglass and consolidative opacities of the lung bases , unchanged from comparison. These findings are new from 2017 and may be secondary to chronic pneumon itis versus progressive fibrosis. 6. 30% T12 compression deformity with mild retropulsion is technically age-indeterminate however is n ew from 06/04/2018. No paravertebral edema. Subacute to chronic etiology is favored. ACT 112: Negative or not required by law. The above report was generated using voice recognition software. It may contain grammatical, syntax o r spelling errors. Electronically signed by: Anthony Lennon M.D. 09/13/2019 4:10 PM
[2019-09-13] MEDS ORDERED: DEXTROSE 50% 50 ML SYRINGE IV PRN (16:36)
[2019-09-13] MEDS ORDERED: ONDANSETRON INJ 2 MG/ML 2 ML VIAL IV PRN (16:36)
[2019-09-13] MEDS ORDERED: ACETAMINOPHEN 325 MG TAB PO PRN (16:36)
[2019-09-13] MEDS ORDERED: GLUCOSE 40% GEL 15 GM TUBE PO PRN (16:36)
[2019-09-13] MEDS ORDERED: MAGNESIUM HYDROXIDE SUSP 30 ML UDC PO PRN (16:36)
[2019-09-13] MEDS ORDERED: GLUCAGON FOR INJ 1 MG VIAL SQ PRN (16:36)
[2019-09-13] MEDS ORDERED: CARBOHYDRATES FOR HYPOGLYCEMIA PO PRN (16:36)
[2019-09-13] MEDS ORDERED: POLYETHYLENE (MIRALAX) 17 GM PACK PO PRN (16:36)
[2019-09-13] MEDS ORDERED: CEFEPIME CONSULT ACTIVE PRN (16:36)
[2019-09-13] MEDS ORDERED: GLUCOSE 10 TABS/TUBE PO PRN (16:36)
[2019-09-13] MEDS ORDERED: ALUMINUM/MAGNESIUM SUSP 30 ML UDC PO PRN (16:36)
[2019-09-13] MEDS ORDERED: ACETAMINOPHEN 1,000 MG/100 ML VIAL IV PRN (16:43)
[2019-09-13 17:07] LABS: Allen Test POS (Pos); Base Excess ABG -0.7 mEq/L (-9-1.8); HCO3 ABG 22 mmol/L (19-24); Oxygen Saturation ABG 92.9 % (90-95); PCO2 ABG 29 mmHg (35-46); PO2 ABG 72 mmHg (80-95); pH ABG 7.49 (7.35-7.45)
[2019-09-13] MEDS: SODIUM CHLORIDE 0.9% 1000ML 1,000 ML IV SCH (17:18)
[2019-09-13] MEDS ORDERED: VANCOMYCIN HCL 2,250 MG in SODIUM CHLORIDE 0.9% 500 ML IV ONE (17:45)
[2019-09-13] MEDS: ALBUT/IPRATROP 3MG/0.5MG NEB 3 ML VIAL NEB SCH (19:51)
[2019-09-13] MEDS: CEFEPIME 2,000 MG in SYRINGE 7.5 ML IV SCH (20:30)
--- NOTE | 2019-09-13 20:30 | Pharmacy Report ---
Pharmacy Abx Initial Consult - Date of Service September 13, 2019 - Pharmacy Dosing Scope Date of Consult: 09/13/19 Consultation requested by: Deana Del Valle PA-C Pharmacy is consulted to initiate Vancomycin IV dosing therapy, order appropriate labs and adjust drug dose/frequency. - Subjective The patient is a 84 year old M admitted on 09/13/19 14:40. - Objective Height: 5 ft 10 in Weight: 91.7 kg Vital Signs (Past 12hrs): Vital Signs Temp Pulse Pulse Resp BP BP Pulse Ox 09/13/19 19:50 94 H 94 H 20 93 09/13/19 18:44 108 H 31 H 114/81 97 09/13/19 18:14 106 H 28 H 112/73 97 09/13/19 18:04 99 H 28 H 109/74 97 09/13/19 17:34 119 H 28 H 99 09/13/19 17:27 112 H 26 H 114/67 88 L 09/13/19 17:12 113 H 25 H 110/72 94 09/13/19 16:57 114 H 25 H 101/77 88 L 09/13/19 16:49 115 H 29 H 107/64 93 09/13/19 16:42 113 H 27 H 107/64 94 09/13/19 16:26 135 H 24 106/84 89 L 09/13/19 16:08 128 H 19 101/71 93 09/13/19 16:00 37.7 C H 127 H 28 H 101/71 93 09/13/19 15:12 121 H 28 H 98 09/13/19 15:05 36.9 C 121 H 36 H 92/62 L 97 09/13/19 13:31 95 09/13/19 13:17 133 H 24 119/73 90 09/13/19 12:47 109 H 22 91 09/13/19 12:30 40.0 C H 90 09/13/19 11:43 37.9 C H 09/13/19 11:36 160 H 30 H 137/85 82 L Lab Results (24hrs): Laboratory Tests (24 Hours) 09/13/19 09/13/19 11:57 11:57 WBC 52.97 H* Creatinine 0.83 Est Cr Clr Drug Dosing Not Reportable Micro Results: 09/13/19 12:22 Aerobic Blood Culture - Pending Blood Anaerobic Blood Culture - Pending 09/13/19 11:57 Aerobic Blood Culture - Pending Blood Anaerobic Blood Culture - Pending - Risk Factors for Resistance * Immunocompromised - patient being treated for AML. Receive chemo [id number]; decitabine. (Last treatment 08/31-09/02?) - Assessment & Plan Assessment 84 year old M referred to ED by Heme/Onc provider after persistent and worsening SOB over last couple of days. Chest x-ray concerning for alveolar opacities consistent with multifocal pneumonia or pulmonary edema. Tmax in ED 40C WBC 53K / ANC 530 COVID Test negative MRSA Swab negative - change MRSA coverage? Blood cultures x2 pending Plan Vancomycin for treatment of pneumonia/neutropenic fever Vancomycin IV Patient meets criteria for vancomycin AUC dosing nomogram AUC/[place] is the preferred PK/PD target for vancomycin * Target AUC/[place] = 400-600 * AUC guided dosing is effective and associated with decreased risk of nephrotoxicity Pharmacy will continue to follow and will adjust dose/frequency as necessary. Thank you.
[2019-09-13] MEDS: PANTOprazole 40 MG TAB PO SCH (20:31)
[2019-09-13] MEDS: ACYCLOVIR 400 MG TAB PO SCH (20:31)
[2019-09-13] MEDS ORDERED: METOPROLOL TARTRATE 50 MG TAB PO SCH (21:00)
[2019-09-13] MEDS ORDERED: ROSUVASTATIN CALCIUM 10 MG TAB PO SCH (21:00)
[2019-09-14] MEDS ORDERED: HEPARIN 100 UNIT/ML 5ML FLUSH FLUSH PRN (00:46)
[2019-09-14 04:45] LABS: INR 3.1 (0.9-1.1); Prothrombin Time 30.8 Seconds (9.0-12.0)
[2019-09-14 04:51] LABS: Albumin Level 2.1 gm/dl (3.4-5.0); BUN Creatinine Ratio 19.7 (10-20); Calcium 7.7 mg/dl (8.5-10.1); Creatinine Clr Calc Pharmacy 91.3 ml/min; Est GFR (African American) 101.3; Est GFR (Non-African American) 87.4; Potassium 3.9 mmol/L (3.5-5.1)
[2019-09-14 04:54] LABS: Albumin Globulin Ratio 0.5 (0.9-2); Bilirubin,Total 0.7 mg/dl (0.2-1); Total Protein 6.1 gm/dl (6.4-8.2)
[2019-09-14 05:21] LABS: Hematocrit (blood only) 22.1 % (42-52); Hemoglobin 7.5 g/dL (14.0-18.0); Mean Corpuscular Hemoglobin 33.8 pg (25-34); Mean Corpuscular Hgb Conc 33.9 g/dL (32-36); Mean Corpuscular Volume 99.5 fL (80-100); Platelet Count 64 K/uL (130-400); RDW Coefficient of Variation 19.4 % (11.5-14.5); RDW Standard Deviation 69.3 fL (36.4-46.3); Red Blood Count 2.22 M/uL (4.7-6.1); White Blood Count 43.28 K/uL (4.8-10.8)
[2019-09-14] MEDS: CEFEPIME 2,000 MG in SYRINGE 7.5 ML IV SCH ×2 (05:31→14:15)
[2019-09-14] MEDS: VANCOMYCIN HCL 1,250 MG in SODIUM CHLORIDE 0.9% 250 ML IV SCH ×2 (05:53→19:08)
[2019-09-14] MEDS: dilTIAZem HCL 125 MG in DEXTROSE 5% 100 ML IV SCH ×2 (06:30→13:53)
[2019-09-14 06:39] LABS: Estimated Average Glucose 151 mg/dl; Hemoglobin A1C 6.9 % (4.5-5.6)
[2019-09-14] MEDS: ALBUT/IPRATROP 3MG/0.5MG NEB 3 ML VIAL NEB SCH ×4 (06:55→19:48)
[2019-09-14 08:49] LABS: ALC (manual) 28.18 K/uL (1.2-3.4); ANC (manual) 2.73 K/uL (1.4-6.5); Blast # (manual) 11.99 K/uL (0-0); Blast Cells % (manual) 27.7 %; Lymphocytes # (manual) 28.18 K/uL (1.2-3.4); Lymphocytes % (manual) 65.1 %; Monocytes # (manual) 0.39 K/uL (0.11-0.59); Monocytes % (manual) 0.9 %; Neutrophils # (manual) 2.73 K/uL (1.4-6.5); Neutrophils % (manual) 6.3 %; Rouleaux 1+
[2019-09-14] MEDS ORDERED: MAGNESIUM OXIDE 400 MG TAB PO SCH (09:00)
[2019-09-14] MEDS ORDERED: METOPROLOL TARTRATE 25 MG TAB PO SCH (09:00)
[2019-09-14] MEDS ORDERED: MULTIVITAMIN TAB PO SCH (09:00)
[2019-09-14] MEDS ORDERED: allopurinoL 100 MG TAB PO SCH (09:00)
[2019-09-14] MEDS ORDERED: FLUCONAZOLE 100 MG TAB PO SCH (09:00)
[2019-09-14] MEDS: SODIUM CHLORIDE 0.9% 1000ML 1,000 ML IV SCH ×2 (09:50→09:53)
[2019-09-14] MEDS: PANTOprazole 40 MG TAB PO SCH (09:54)
[2019-09-14] MEDS: ACYCLOVIR 400 MG TAB PO SCH (09:54)
[2019-09-14] MEDS ORDERED: ACETAMINOPHEN 325 MG TAB PO PRN (10:55)
--- NOTE | 2019-09-14 10:57 | Hospitalist Progress Note ---
Date of Service September 14, 2019 Assessment & Plan (1) Acute respiratory failure with hypoxia: (2) Neutropenic sepsis: (3) Pneumonia: -as per admission 09/14/2019 notes "This is an 84-year-old male who has significant past medical history of chronic atrial fibrillation anticoagulated on warfarin, HTN, HLD, diet-controlled T2DM, history of lung cancer status post resection, history of prostate cancer, pulmonary fibrosis, MDS with excess blast diagnosed in 03/2018 who presents to ED at the referral of his flower maker secondary to worsening shortness of breath x2 weeks. In ED patient presented in rapid atrial fibrillation with rates 150s to 160s, febrile at 40.0 C and hypoxic requiring 3 to 4 L of O2 via NC. Lab work notable for significant leukocytosis 52.97K with predominant lymphocytes and neutropenia. He also has evidence of excess blast. He is otherwise pancytopenic with a stable H&H of 9.3 and 26.7, platelet count 73, sodium 131, BUN 15, creatinine 0.83, glucose 122, lactic acid 1.35, proBNP 3669, troponin WNL. Urinalysis negative for infection. COVID-19 negative. Chest x-ray concerning for cardiomegaly with progressively worsening mixed interstitial and alveolar opacities consistent with multifocal pneumonia or pulmonary edema. He was started on diltiazem bolus and drip secondary to A. fib with RVR, received IV fluid and IV cefepime while in ED." -continue empiric IV antibiotics vancomycin and cefepime and follow the blood cultures. continue acyclovir and Diflucan given neutropenic. Note that diflucan can affect rhe INR -40 mg IV Lasix x 1 given on 09/14/2019 because of admission IV fluid volume that was given -try to transition off BIPAP to face mask oxygen (4) Myelodysplastic syndrome: -MDS with excessive blast type 2 - follows Dr. Raciel Rose -last treatment 08/31-09/02 decitabine -Continues to be neutropenic and otherwise pancytopenic -recent outpatient PRBC transfusions without improvement -Patient reports that he is giving up on chemotherapy and wishes home hospice services when he returns home. However in regards to goals of care discussions with his Noni ([phone]) and daughter Terrie (her cell is [phone] and they want her to be the main personal lines sales rep because she is a oncology nurse) and they would like hospitalist team to treat medically the issues of infection and heart rate control as usual standard of care while allowing for palliative care consult to be involved to help with home hospice needs. (5) Pulmonary fibrosis: As above (6) Atrial fibrillation with RVR: -Patient with chronic Atrial fibrillation anticoagulated on warfarin and rate controlled on metoprolol as outpatient, presented in afib with RVR -will try to transition patient off Diltiazem IV drip to home oral medication of metoprolol tartrate as 75 mg AM and 50 mg qPM but may need increasing Beta blockers and his family permits cardiology consult to assist with heart rate control -INR is 3.1 on admission of 09/15/2019 and coumadin held, INR is 3.1 on 09/14/2019, continue to hold coumadin for now (his home dose is usually warfarin 5mg mon/fri and 2.5mg all other days; note that patient is on Diflucan currently and this can raise INR) (7) Hypertension: -off home dose hold lisinopril to avoid hypotension -40 mg IV Lasix x 1 given on 09/14/2019 because of admission IV fluid volume that was given (8) HLD (hyperlipidemia): -hold home dose crestor for now (9) T2DM (type 2 diabetes mellitus): -diet controlled t2dm, last a1c 6.7 on 12/2018 -HbA1c 6.9 on this admission -continue sliding scale protocol because concern of diet with respiratory issues (10) DVT prophylaxis: -INR is 3.1 on admission of 09/15/2019 and coumadin held, INR is 3.1 on 09/14/2019, continue to hold coumadin for now Follow up: PCP Dr. Nance for routine care; along with Dr. Rose oncology Admission and Anticipated Discharge Date Admission Date: September 13, 2019 Subjective Patient seen and examined at bedside. able to speak in sentences. denies pain. trial to come off BIPAP not successful leading to returning to BIPAP. Lasix 40 mg IV given not too long before the CXR on 09/14/2019. had long discussion with family on phone about goals of care. Review of Systems Review of Systems: All systems reviewed & are unremarkable except as noted in Subjective Physical Exam Constitutional: cooperative Eyes: PERRL, conjunctivae normal, anicteric sclerae ENMT: external ear and nose normal, oropharynx normal Neck: normal visual inspection Respiratory: able to speak in complete sentences Cardiovascular: Rate/Rhythm: + tachycardic and + irregularly irregular Gastrointestinal (Abdomen): normal bowel sounds, soft, nontender, no hepatosplenomegaly Musculoskeletal: Head/Neck/Chest: normocephalic and head atraumatic Neurologic: PERRL, EOMI, accommodation nl, no face palsy, no dysarthria moves all extremities Psychiatric: A+Ox3, euthymic affect Results & Data Results & Data ([facility]) Vital Signs (Past 12 Hours) Vital Signs Temp Pulse Pulse Resp BP Pulse Ox 09/14/19 07:53 36.9 C 120 H 22 114/72 92 09/14/19 06:58 121 H 35 H 90 09/14/19 06:55 121 H 35 H 89 L 09/14/19 04:00 36.7 C 110 H 16 133/80 98 09/14/19 00:30 89 36 H 92 (1) Hypertension Hypertension type: essential hypertension Qualified Code(s): I10 - Essential (primary) hypertension
[2019-09-14] MEDS ORDERED: FUROSEMIDE 40 MG in SYRINGE 0 ML IV ONE (11:00)
[2019-09-14 11:07] LABS: Hematocrit (blood only) 23.2 % (42-52); Hemoglobin 7.8 g/dL (14.0-18.0); Mean Corpuscular Hemoglobin 34.1 pg (25-34); Mean Corpuscular Hgb Conc 33.6 g/dL (32-36); Mean Corpuscular Volume 101.3 fL (80-100); Mean Platelet Volume 9.8 fL (7.4-10.4); Platelet Count 68 K/uL (130-400); RDW Coefficient of Variation 19.5 % (11.5-14.5); Red Blood Count 2.29 M/uL (4.7-6.1); White Blood Count 49.51 K/uL (4.8-10.8)
--- NOTE | 2019-09-14 11:10 | XRay Report ---
XR chest 1V portable CLINICAL HISTORY: follow lung infiltrates COMPARISON STUDY: 09/13/2019 FINDINGS: Moderately progressive left hemithoracic infiltrative change. Minimally progressive right midlung infiltrative change. Central catheter in superior vena cava at the juncture with the right atrium. IMPRESSION: Mildly progressive left and to a lesser extent right parenchymal infiltrative change. ACT 112: Negative or not required by law. The above report was generated using voice recognition software. It may contain grammatical, syntax or spelling errors. Electronically signed by: Demetrius Davis M.D. 09/14/2019 11:08 AM
[2019-09-14 11:36] LABS: Base Excess ABG -1.2 mEq/L (-9-1.8); HCO3 ABG 22 mmol/L (19-24); Oxygen Saturation ABG 87.3 % (90-95); PCO2 ABG 31 mmHg (35-46); PO2 ABG 54 mmHg (80-95); pH ABG 7.47 (7.35-7.45)
[2019-09-14 11:37] LABS: Allen Test Pos (Pos)
[2019-09-14 11:57] LABS: ALC (manual) 30.65 K/uL (1.2-3.4); ANC (manual) 2.08 K/uL (1.4-6.5); Anisocytosis Present; Blast # (manual) 15.94 K/uL (0-0); Blast Cells % (manual) 32.2 %; Lymphocytes # (manual) 30.65 K/uL (1.2-3.4); Lymphocytes % (manual) 61.9 %; Macrocytosis Present; Monocytes # (manual) 0.84 K/uL (0.11-0.59); Monocytes % (manual) 1.7 %; Neutrophils # (manual) 2.08 K/uL (1.4-6.5); Neutrophils % (manual) 4.2 %
--- NOTE | 2019-09-14 12:22 | Electrocardiogram Report ---
Test Reason : Blood Pressure : / mmHG Vent. Rate : 114 BPM Atrial Rate : 000 BPM P-R Int : 000 ms QRS Dur : 082 ms QT Int : 336 ms P-R-T Axes : 000 058 241 degrees QTc Int : 463 ms Atrial fibrillation with rapid ventricular response Nonspecific T wave abnormality Abnormal ECG When compared with ECG of 13-SEP-2019 11:45, No significant change was found Confirmed by Niko Chavez ([id number]) on 09/14/2019 12:22:00 PM Referred By: REFERRED SELF Confirmed By:Michael Chavez
[2019-09-14] MEDS ORDERED: LORazepam 0.5 MG/1 ML VIAL IV STA (14:25)
[2019-09-14] MEDS ORDERED: LORazepam 0.25 MG/0.5 ML VIAL IV PRN (14:26)
[2019-09-14] MEDS ORDERED: FUROSEMIDE 20 MG in SYRINGE 0 ML IV ONE (14:45)
[2019-09-14] MEDS ORDERED: MoRPHine SULFATE 2 MG/ML CARP IV STA (14:47)
[2019-09-14] MEDS ORDERED: MoRPHine SULFATE 2 MG/ML CARP IV PRN (14:55)
--- NOTE | 2019-09-14 15:33 | Palliative Care Consultation ---
Date of Consultation September 14, 2019 Assessment & Plan (1) Palliative care encounter: Briefly this is an 84-year-old male with a past medical history of MDS- diagnosed in March 2018-evolved into AML. Was undergoing chemo with his last treatment on 08/31. Past medical history also significant for CAD-status post stent x4 in October 2018, paroxysmal A. fib on amiodarone, CKD stage III, hypothyroidism, hypertension, HLD and diabetes who presented to the emergency room on 09/12 with shortness of breath and chest pressure of 2 weeks duration. Patient was also noted to have a low-grade fever. Patient with an elevated white count-likely due to AML, white count on admission was 52.97, hemoglobin 9.3, platelet count 73K. On admission patient was placed on O2 at 3 L-continue to have increased shortness of breath and hypoxia-was titrated up to 15 L via nonrebreather mask. Patient has also been placed intermittently on BiPAP as tolerated. Patient was started on cefepime, vancomycin, acyclovir and Diflucan- chest x-ray showed increased bilateral infiltrates left greater than right compared to admission checks x-ray. Patient was given a dose of Lasix. Patient seen and examined on 3 separate visits today, also spoke with patient's , Noni and his daughter, [phone] on 3 separate occasions. Spoke with patient-he stated his wishes to go home with hospice, I asked him if tomorrow would be early enough-he replied yes. When I spoke to his and daughter on the second occasion-they reported that patient had recently called and told his family that he felt like he was going to this evening and would not make at home. Obtain permission for family to visit this afternoon. Collaborated with attending physician Dr. Alberto Mccoy, will add PRN morphine and PRN Ativan for comfort. Spoke with case management, if patient survives the night, plan is to go home with hospice care tomorrow with home BiPAP. Patient's current CODE STATUS is DNR (2) Acute respiratory failure with hypoxia: (3) AML (acute myeloblastic leukemia): Leukemia Active/Remission status: without remission Qualified Code(s): C92.00 - Acute myeloblastic leukemia, not having achieved remission (4) Leukocytosis: Leukocytosis type: unspecified Qualified Code(s): D72.829 - Elevated white blood cell count, unspecified (5) Atrial fibrillation with RVR: History of Present Illness Reason for Consultation: Address goals of care Requesting Physician: Dr. Alberto Mccoy Attending Physician: Alberto Mccoy MD History of Present Illness Briefly this is an 84-year-old male with a past medical history of MDS-diagnosed in March 2018-evolved into AML. Was undergoing chemo with his last treatment on 08/31. Past medical history also significant for CAD-status post stent x4 in October 2018, paroxysmal A. fib on amiodarone, CKD stage III, hypothyroidism, hypertension, HLD and diabetes who presented to the emergency room on 09/12 with shortness of breath and chest pressure of 2 weeks duration. Patient was also noted to have a low-grade fever. Patient with an elevated white count-likely due to AML, white count on admission was 52.97, hemoglobin 9.3, platelet count 73K. On admission patient was placed on O2 at 3 L-continue to have increased shortness of breath and hypoxia-was titrated up to 15 L via nonrebreather mask. Patient has also been placed intermittently on BiPAP as tolerated. Patient was started on cefepime, vancomycin, acyclovir and Diflucan-chest x-ray showed increased bilateral infiltrates left greater than right compared to admission checks x-ray. Patient was given a dose of Lasix. Patient seen and examined on 3 separate visits today, also spoke with patient's , Noni and his daughter, [phone] on 3 separate occasions. Spoke with patient-he stated his wishes to go home with hospice, I asked him if tomorrow would be early enough-he replied yes. When I spoke to his and daughter on the second occasion-they reported that patient had recently called and told his family that he felt like he was going to this evening and would not make at home. tearful, daughter and son at home with patient's . Obtain permission for family to visit this afternoon. Collaborated with attending physician Dr. Alberto Mccoy, will add PRN morphine and PRN Ativan for comfort. Spoke with case management, if patient survives the night, plan is to go home with hospice care tomorrow with home BiPAP. Patient's current CODE STATUS is DNR Allergies Allergy/AdvReac Type Severity Reaction Status Date / Time No Known Allergies Allergy Verified 09/13/19 13:31 Home Medications Home Medications Medication Instructions Recorded Confirmed Type allopurinol 100 mg PO QAM 03/02/18 09/13/19 History furosemide 20 mg PO DAILY 03/02/18 09/13/19 History lisinopril 5 mg PO QAM 03/02/18 09/13/19 History magnesium oxide 400 mg PO QAM 03/02/18 09/13/19 History metoprolol tartrate 50 mg PO QPM 03/02/18 09/13/19 History metoprolol tartrate 75 mg PO QAM 03/02/18 09/13/19 History pantoprazole [Protonix] 40 mg PO BID 03/02/18 09/13/19 History potassium chloride 10 meq PO DAILY PRN 03/02/18 09/13/19 History warfarin 5 mg PO MOWE #0 04/20/18 09/13/19 History aspirin 81 mg PO DAILYBD 06/04/18 09/13/19 History rosuvastatin 10 mg PO HS 06/04/18 09/13/19 History warfarin 2.5 mg PO SUTUTHFRSA 06/04/18 09/13/19 History acyclovir 400 mg PO BID 05/06/19 09/13/19 History amoxicillin-pot clavulanate 1 tab PO BID 05/06/19 09/13/19 History decitabine [Dacogen] 50 mg IV UD 05/06/19 09/13/19 History fluconazole 100 mg PO QAM 05/06/19 09/13/19 History multivitamin 1 tab PO QAM 09/13/19 09/13/19 History Patient History Medical History AML (acute myeloblastic leukemia) chemo q3wk Barretts esophagus (Chronic) Chronic atrial fibrillation (Chronic) on warfarin - follows w/ kelechi mathieu Diverticular disease GERD (gastroesophageal reflux disease) History of kidney stones (Chronic) 1982 History of lung cancer (Resolved) R lung adenocarcinoma T1 N0 M0 status post right lower lobe lobectomy 05/08/07 History of prostate cancer (Resolved) Status post prostatectomy HLD (hyperlipidemia) Hypertension (Chronic) Pulmonary fibrosis Surgical History H/O hemicolectomy (Chronic) Due to diverticulitis H/O prostatectomy (Chronic) H/O umbilical hernia repair (Chronic) History of appendectomy (Chronic) History of bone marrow biopsy History of cataract surgery History of circumcision AN ADULT History of kidney surgery OPEN INCISION FOR LARGE KIDNEY STONE EXTRACTION. History of thoracotomy (Inactive) History of tonsillectomy (Inactive) History of total left knee replacement (Chronic) History of vascular access device port - left chest History of vitrectomy 3 SURGERIES INCLUDING SCLERAL BUCKLE (LEFT EYE) FOR DETACHED RETINA Hx of detached retina repair S/P left knee arthroscopy (Chronic) S/P lobectomy of lung (Chronic) RLL due to cancer 05/2007 S/P tonsillectomy and adenoidectomy (Chronic) Status post total shoulder arthroplasty (Chronic) Family History Brother Prostate cancer Brother Diabetes Father Diabetes Lymphoma Other Family history non-contributory Social History Preferred Language: Italian Communication Ability: Effective Visual Impairment: No Limitations Hand I Cutter Required: No Beliefs That Will Affect Care: None marital status: Current Living Situation: Spouse current occupational status: retired Feels Safe at Home: Yes Safety Concerns: Feels Safe At This Time and Afraid for Others in Home Smoking Status: Former smoker Tobacco Type: cigarettes ; Smoking End Date: 1969 ; Second Hand Exposure: No ; Hx Alcohol Use: No Hx Substance Use: No Review of Systems Review of Systems: ROS limited due to patient's shortness of breath, BiPAP in place during exam-able to nod yes or no. Positive for increased shortness of breath and anxiety Negative for chest pain or abdominal pain Physical Exam Physical Exam: PE: Patient with moderate distress due to increased respiratory rate HEENT: EOMI, hearing within normal limits Respiratory: Coarse rales on left, clear breath sounds on right, on BiPAP CV: Tachycardic, no lower extremity edema Abdomen: Soft, nontender Neuro: Alert and oriented x4 Results & Data Vital Signs (Past 12 Hours) Vital Signs Temp Pulse Pulse Pulse Resp BP Pulse Ox 09/14/19 14:58 100 H 40 H 89 L 09/14/19 13:30 93 H 39 H 91 09/14/19 11:24 98.2 F 68 20 109/66 90 09/14/19 11:08 107 H 22 90 09/14/19 07:53 98.4 F 120 H 22 114/72 92 09/14/19 06:58 121 H 35 H 90 09/14/19 06:55 121 H 35 H 89 L 09/14/19 04:00 98.1 F 110 H 16 133/80 98 PG Care Time/CCT Total # of Minutes Spent Total Time Spent with Patient: Total time spent 100 minutes spent on 3 separate visits to assess patient's status as well as 3 separate conversations with the family by phone to update on patient's current status, and discuss goals of care. Prolonged Care Time Prolonged Care Time: Yes Total Prolonged Care Time: 30 Coding Level of Care Code 51031 Inpt Consult Level 3 Diagnoses Palliative care encounter Z51.5 Acute respiratory failure with hypoxia J96.01 AML (acute myeloblastic leukemia) C92.00 Leukemia Active/Remission status: without remission Leukocytosis D72.829 Leukocytosis type: unspecified Atrial fibrillation with RVR I48.91 Additional Codes Prolonged Care Time - Prolonged Care Time: Yes ([id number]) Time Spent (min) 100 Critical Care Time Prolonged Care Time Prolonged Care Time: Yes Total Prolonged Care Time: 30 100
[2019-09-14] MEDS ORDERED: MoRPHine SULFATE 5 MG/0.25 ML UDP PO PRN (16:26)
[2019-09-14] MEDS ORDERED: LORazepam 0.5 MG TAB PO PRN (16:27)
--- NOTE | 2019-09-14 16:55 | Cardiology Consultation ---
Date of Consultation September 14, 2019 Assessment & Plan (1) Atrial fibrillation with RVR: Elevated ventricular rates on admission is a secondary process to hypoxia, respiratory failure, sepsis He has chronic afib. Rates improved with Cardizem gtt. Wean as tolerated continue metoprolol tartrate. May titrate dose if needed pending HR response weaning off Cardizem Continue Coumadin for now (2) Acute respiratory failure with hypoxia: IV lasix, BIPAP, Antibiotics per hospitalist (3) AML (acute myeloblastic leukemia): Palliative care consult recommended Case discussed with Dr. Mcmullen. Will follow Supervising Physician Co-Signing Physician Notes Patient seen and examined with Delilah Patel PA-C. Agree with findings and assessment as above. Very pleasant yet medically complex 84-year-old gentleman with end-stage disease. I agree with the family's decision for home hospice and have discussed this with his and daughter as well. No further intervention from a cardiac standpoint. General: Minimally responsive. No acute distress on high flow nonrebreather HEENT: Normocephalic, atraumatic. Pupils equal, round and reactive to light and accommodation. Extraocular muscles are intact. Anicteric sclera. Moist mucous membranes. Neck: No JVD. No bruit. Cardiovascular: irregularly irregular, unable to appreciate murmur, rub or gallop. Pulmonary: Clear to auscultation bilaterally. No rales, rhonchi, or wheezing. Abdomen: Bowel sounds x 4, soft. No rebound, guarding or tenderness. No organomegaly. Extremities: No clubbing, cyanosis or edema. +2 pedal pulses bilaterally. Skin: Warm and dry. History of Present Illness Reason for Consultation: afib RVR Requesting Physician: Dr. Mccoy Attending Physician: Dr. Mcmullen History of Present Illness Patient is a very complex 84-year-old male with history as below who was admitted to [facility] with complaints of progressive shortness of breath with associated pancytopenia and leukocytosis secondary to AML. Patient has been having ongoing chemotherapy treatments but recently made the decision to stop therapy. Chest xray consistent with pneumonia and pulm edema. WBC at nearly 50 on admission. On admission he was found to be tachycardic, tachypneic with respiratory distress and hypoxia. Place don bipap, antibiotics, IV Lasix. Started on Cardizem drip due to afib RVR. Rates trending down on home dose metoprolol and Cardizem since admission. At time of consult, patient feeling marginally better but still dyspneic. Palliative care consult ordered. Due to dyspnea, full review of systems and history not obtained from patient. History obtained from medical records. Past Medical/Surgical History: 1. Right lower lobe adenocarcinoma 2. Prostate cancer, radical prostatectomy. 3. 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 4. Symptomatic ectopy 5. Past paroxysmal and now chronic atrial fibrillation 6. Chronic Coumadin anticoagulation 7. Hypertension 8. Hyperlipidemia. 9. Barretts esophagus 10. Past gastrointestinal hemorrhage, October 2012 while vacationing in [place] - acute cecal diverticulum rupture requiring 5 U FFP and 15 U PRBC's in total, emergent colectomy on 11/11/12 complicated by a postop ileus. 11. Diverticulosis 12. Gout 13. History of renal calculi. 14. Vertigo 15. Osteoarthritis. 16. Cholelithiasis. 17. Pancreatic cyst 18. Hearing loss. 19. Umbilical hernia status post repair. 20. Colonic polyps. 21. Kidney stones 22. T/A as a child. 23. Appendectomy. 24. Arthroscopic left knee surgery. 25. Right shoulder surgery in June 2013. 26. December 2016 left unicompartment knee replacement without cardiac complications. 27. Partial then full detached retina requiring surgical repair 2 28. Cataract extraction. Allergies Allergy/AdvReac Type Severity Reaction Status Date / Time No Known Allergies Allergy Verified 09/13/19 13:31 Home Medications Home Medications Medication Instructions Recorded Confirmed Type allopurinol 100 mg PO QAM 03/02/18 09/13/19 History furosemide 20 mg PO DAILY 03/02/18 09/13/19 History lisinopril 5 mg PO QAM 03/02/18 09/13/19 History magnesium oxide 400 mg PO QAM 03/02/18 09/13/19 History metoprolol tartrate 50 mg PO QPM 03/02/18 09/13/19 History metoprolol tartrate 75 mg PO QAM 03/02/18 09/13/19 History pantoprazole [Protonix] 40 mg PO BID 03/02/18 09/13/19 History aspirin 81 mg PO DAILYBD 06/04/18 09/13/19 History multivitamin 1 tab PO QAM 09/13/19 09/13/19 History lorazepam 0.5 mg PO Q4H PRN 4 Days #16 tab 09/14/19 Rx morphine concentrate 5 mg PO Q1H PRN 4 Days #100 ml 09/14/19 Rx scopolamine base 1 patch TD Q72H PRN 30 Days #10 ea 09/14/19 Rx Patient History Medical History AML (acute myeloblastic leukemia) chemo q3wk Barretts esophagus (Chronic) Chronic atrial fibrillation (Chronic) on warfarin - follows w/ kelechi mathieu Diverticular disease GERD (gastroesophageal reflux disease) History of kidney stones (Chronic) 1982 History of lung cancer (Resolved) R lung adenocarcinoma T1 N0 M0 status post right lower lobe lobectomy 05/08/07 History of prostate cancer (Resolved) Status post prostatectomy HLD (hyperlipidemia) Hypertension (Chronic) Pulmonary fibrosis Surgical History H/O hemicolectomy (Chronic) Due to diverticulitis H/O prostatectomy (Chronic) H/O umbilical hernia repair (Chronic) History of appendectomy (Chronic) History of bone marrow biopsy History of cataract surgery History of circumcision AN ADULT History of kidney surgery OPEN INCISION FOR LARGE KIDNEY STONE EXTRACTION. History of thoracotomy (Inactive) History of tonsillectomy (Inactive) History of total left knee replacement (Chronic) History of vascular access device port - left chest History of vitrectomy 3 SURGERIES INCLUDING SCLERAL BUCKLE (LEFT EYE) FOR DETACHED RETINA Hx of detached retina repair S/P left knee arthroscopy (Chronic) S/P lobectomy of lung (Chronic) RLL due to cancer 05/2007 S/P tonsillectomy and adenoidectomy (Chronic) Status post total shoulder arthroplasty (Chronic) Family History Brother Prostate cancer Brother Diabetes Father Diabetes Lymphoma Other Family history non-contributory Social History Preferred Language: Portuguese Communication Ability: Effective Visual Impairment: No Limitations Rn Critical Care Required: No Beliefs That Will Affect Care: None marital status: Current Living Situation: Spouse current occupational status: retired Feels Safe at Home: Yes Smoking Status: Former smoker Tobacco Type: cigarettes ; Second Hand Exposure: No ; Hx Alcohol Use: No Hx Substance Use: No Review of Systems Review of Systems: Other (Unable to perform due to dyspnea) Physical Exam Constitutional: + acute distress and + ill appearing Respiratory: + labored breathing and + retractions Auscultation: + diminished lung sounds Cardiovascular: Rate/Rhythm: + irregularly irregular Vessels: no JVD Extremities: no edema Gastrointestinal (Abdomen): normal bowel sounds, soft, nontender, no hepatosplenomegaly Results & Data ([facility]) Vital Signs (Past 12 Hours) Vital Signs Temp Pulse Pulse Pulse Resp BP Pulse Ox 09/14/19 16:00 42 H 09/14/19 14:58 100 H 40 H 89 L 09/14/19 13:30 93 H 39 H 91 09/14/19 11:24 36.8 C 68 20 109/66 90 09/14/19 11:08 107 H 22 90 09/14/19 07:53 36.9 C 120 H 22 114/72 92 09/14/19 06:58 121 H 35 H 90 09/14/19 06:55 121 H 35 H 89 L Laboratory Results 09/14/19 09/14/19 09/14/19 Range/Units 11:26 10:49 10:48 WBC 49.51 H* (4.8-10.8) K/uL RBC 2.29 L (4.7-6.1) M/uL Hgb 7.8 L (14.0-18.0) g/dL Hct 23.2 L (42-52) % MCV 101.3 H (80-100) fL MCH 34.1 H (25-34) pg MCHC 33.6 (32-36) g/dL RDW Std Deviation 72.0 H (36.4-46.3) fL RDW Coeff of Onelia 19.5 H (11.5-14.5) % Plt Count 68 L (130-400) K/uL MPV 9.8 (7.4-10.4) fL Neutrophils % (Manual) 4.2 % Lymphocytes % (Manual) 61.9 % Monocytes % (Manual) 1.7 % Blast Cells % (Manual) 32.2 % Neutrophils # (Manual) 2.08 (1.4-6.5) K/uL Total Absolute Neuts 2.08 (1.4-6.5) K/uL Lymphocytes # (Manual) 30.65 H (1.2-3.4) K/uL Total Abs Lymphocytes 30.65 H (1.2-3.4) K/uL Monocytes # (Manual) 0.84 H (0.11-0.59) K/uL Blast Cells # (Man) 15.94 H (0-0) K/uL Blood Smear Review Anisocytosis Present Macrocytosis Present Rouleaux PT (9.0-12.0) Seconds INR (0.9-1.1) ABG pH 7.47 H (7.35-7.45) ABG pCO2 31 L (35-46) mmHg ABG pO2 54 L (80-95) mmHg ABG HCO3 22 (19-24) mmol/L ABG O2 Saturation 87.3 L (90-95) % ABG Base Excess -1.2 (-9-1.8) mEq/L Phani Test Pos (Pos) Barometric Pressure 741.5 mm/Hg Oxygen Given 35% Sodium (136-145) mmol/L Potassium (3.5-5.1) mmol/L Chloride (98-107) mmol/L Carbon Dioxide (21-32) mmol/L Anion Gap (3-11) BUN (7-18) mg/dl Creatinine (0.6-1.4) mg/dl Est Cr Clr Drug Dosing ml/min Est GFR ( Amer) Est GFR (Non-Af Amer) BUN/Creatinine Ratio (10-20) Glucose (70-99) mg/dl POC Glucose 148 H (70-99) mg/dl Estimat Average Glucose mg/dl Hemoglobin A1c (4.5-5.6) % Calcium (8.5-10.1) mg/dl Total Bilirubin (0.2-1) mg/dl AST (15-37) U/L ALT (12-78) U/L Alkaline Phosphatase (45-117) U/L Total Protein (6.4-8.2) gm/dl Albumin (3.4-5.0) gm/dl Globulin (2.5-4.0) gm/dl Albumin/Globulin Ratio (0.9-2) Nasal Screen MRSA (PCR) (Negative) 09/14/19 09/14/19 09/14/19 Range/Units 10:48 04:25 04:25 WBC (4.8-10.8) K/uL RBC (4.7-6.1) M/uL Hgb (14.0-18.0) g/dL Hct (42-52) % MCV (80-100) fL MCH (25-34) pg MCHC (32-36) g/dL RDW Std Deviation (36.4-46.3) fL RDW Coeff of Onelia (11.5-14.5) % Plt Count (130-400) K/uL MPV (7.4-10.4) fL Neutrophils % (Manual) % Lymphocytes % (Manual) % Monocytes % (Manual) % Blast Cells % (Manual) % Neutrophils # (Manual) (1.4-6.5) K/uL Total Absolute Neuts (1.4-6.5) K/uL Lymphocytes # (Manual) (1.2-3.4) K/uL Total Abs Lymphocytes (1.2-3.4) K/uL Monocytes # (Manual) (0.11-0.59) K/uL Blast Cells # (Man) (0-0) K/uL Blood Smear Review Anisocytosis Macrocytosis Rouleaux PT (9.0-12.0) Seconds INR (0.9-1.1) ABG pH Cancelled (7.35-7.45) ABG pCO2 Cancelled (35-46) mmHg ABG pO2 Cancelled (80-95) mmHg ABG HCO3 Cancelled (19-24) mmol/L ABG O2 Saturation Cancelled (90-95) % ABG Base Excess Cancelled (-9-1.8) mEq/L Phani Test Cancelled (Pos) Barometric Pressure Cancelled mm/Hg Oxygen Given Cancelled Sodium 133 L (136-145) mmol/L Potassium 3.9 (3.5-5.1) mmol/L Chloride 104 (98-107) mmol/L Carbon Dioxide 25 (21-32) mmol/L Anion Gap 4.0 (3-11) BUN 14 (7-18) mg/dl Creatinine 0.71 (0.6-1.4) mg/dl Est Cr Clr Drug Dosing 91.3 ml/min Est GFR ( Amer) 101.3 Est GFR (Non-Af Amer) 87.4 BUN/Creatinine Ratio 19.7 (10-20) Glucose 214 H (70-99) mg/dl POC Glucose (70-99) mg/dl Estimat Average Glucose 151 mg/dl Hemoglobin A1c 6.9 H (4.5-5.6) % Calcium 7.7 L (8.5-10.1) mg/dl Total Bilirubin 0.7 (0.2-1) mg/dl AST 32 (15-37) U/L ALT 46 (12-78) U/L Alkaline Phosphatase 80 (45-117) U/L Total Protein 6.1 L (6.4-8.2) gm/dl Albumin 2.1 L (3.4-5.0) gm/dl Globulin 4.0 (2.5-4.0) gm/dl Albumin/Globulin Ratio 0.5 L (0.9-2) Nasal Screen MRSA (PCR) (Negative) 09/14/19 09/14/19 09/13/19 Range/Units 04:25 04:25 20:37 WBC 43.28 H* (4.8-10.8) K/uL RBC 2.22 L (4.7-6.1) M/uL Hgb 7.5 L (14.0-18.0) g/dL Hct 22.1 L (42-52) % MCV 99.5 (80-100) fL MCH 33.8 (25-34) pg MCHC 33.9 (32-36) g/dL RDW Std Deviation 69.3 H (36.4-46.3) fL RDW Coeff of Onelia 19.4 H (11.5-14.5) % Plt Count 64 L (130-400) K/uL MPV 10.0 (7.4-10.4) fL Neutrophils % (Manual) 6.3 % Lymphocytes % (Manual) 65.1 % Monocytes % (Manual) 0.9 % Blast Cells % (Manual) 27.7 % Neutrophils # (Manual) 2.73 (1.4-6.5) K/uL Total Absolute Neuts 2.73 (1.4-6.5) K/uL Lymphocytes # (Manual) 28.18 H (1.2-3.4) K/uL Total Abs Lymphocytes 28.18 H (1.2-3.4) K/uL Monocytes # (Manual) 0.39 (0.11-0.59) K/uL Blast Cells # (Man) 11.99 H (0-0) K/uL Blood Smear Review Anisocytosis Macrocytosis Rouleaux 1+ PT 30.8 H (9.0-12.0) Seconds INR 3.1 H (0.9-1.1) ABG pH (7.35-7.45) ABG pCO2 (35-46) mmHg ABG pO2 (80-95) mmHg ABG HCO3 (19-24) mmol/L ABG O2 Saturation (90-95) % ABG Base Excess (-9-1.8) mEq/L Phani Test (Pos) Barometric Pressure mm/Hg Oxygen Given Sodium (136-145) mmol/L Potassium (3.5-5.1) mmol/L Chloride (98-107) mmol/L Carbon Dioxide (21-32) mmol/L Anion Gap (3-11) BUN (7-18) mg/dl Creatinine (0.6-1.4) mg/dl Est Cr Clr Drug Dosing ml/min Est GFR ( Amer) Est GFR (Non-Af Amer) BUN/Creatinine Ratio (10-20) Glucose (70-99) mg/dl POC Glucose 121 H (70-99) mg/dl Estimat Average Glucose mg/dl Hemoglobin A1c (4.5-5.6) % Calcium (8.5-10.1) mg/dl Total Bilirubin (0.2-1) mg/dl AST (15-37) U/L ALT (12-78) U/L Alkaline Phosphatase (45-117) U/L Total Protein (6.4-8.2) gm/dl Albumin (3.4-5.0) gm/dl Globulin (2.5-4.0) gm/dl Albumin/Globulin Ratio (0.9-2) Nasal Screen MRSA (PCR) (Negative) 09/13/19 09/13/19 09/13/19 Range/Units 16:53 16:20 11:57 WBC (4.8-10.8) K/uL RBC (4.7-6.1) M/uL Hgb (14.0-18.0) g/dL Hct (42-52) % MCV (80-100) fL MCH (25-34) pg MCHC (32-36) g/dL RDW Std Deviation (36.4-46.3) fL RDW Coeff of Onelia (11.5-14.5) % Plt Count (130-400) K/uL MPV (7.4-10.4) fL Neutrophils % (Manual) % Lymphocytes % (Manual) % Monocytes % (Manual) % Blast Cells % (Manual) % Neutrophils # (Manual) (1.4-6.5) K/uL Total Absolute Neuts (1.4-6.5) K/uL Lymphocytes # (Manual) (1.2-3.4) K/uL Total Abs Lymphocytes (1.2-3.4) K/uL Monocytes # (Manual) (0.11-0.59) K/uL Blast Cells # (Man) (0-0) K/uL Blood Smear Review Anisocytosis Macrocytosis Rouleaux PT (9.0-12.0) Seconds INR (0.9-1.1) ABG pH 7.49 H (7.35-7.45) ABG pCO2 29 L (35-46) mmHg ABG pO2 72 L (80-95) mmHg ABG HCO3 22 (19-24) mmol/L ABG O2 Saturation 92.9 (90-95) % ABG Base Excess -0.7 (-9-1.8) mEq/L Phani Test POS (Pos) Barometric Pressure 740.8 mm/Hg Oxygen Given O2 FLOW RATE 4 Sodium (136-145) mmol/L Potassium (3.5-5.1) mmol/L Chloride (98-107) mmol/L Carbon Dioxide (21-32) mmol/L Anion Gap (3-11) BUN (7-18) mg/dl Creatinine (0.6-1.4) mg/dl Est Cr Clr Drug Dosing ml/min Est GFR ( Amer) Est GFR (Non-Af Amer) BUN/Creatinine Ratio (10-20) Glucose (70-99) mg/dl POC Glucose (70-99) mg/dl Estimat Average Glucose mg/dl Hemoglobin A1c (4.5-5.6) % Calcium (8.5-10.1) mg/dl Total Bilirubin (0.2-1) mg/dl AST (15-37) U/L ALT (12-78) U/L Alkaline Phosphatase (45-117) U/L Total Protein (6.4-8.2) gm/dl Albumin (3.4-5.0) gm/dl Globulin (2.5-4.0) gm/dl Albumin/Globulin Ratio (0.9-2) Nasal Screen MRSA (PCR) Negative (Negative) Diagnostic Findings Telemetry reviewed: afib, rates improved from admission, [id number] bpm chest xray reviewed: b/l opacities and multifocal pneumonia with pulm edema Medications Administered Current Inpatient Medications Acetaminophen (Tylenol) 325 mg PO Q6H PRN PRN Reason: Pain or Fever Stop: 10/13/19 16:35 Acyclovir (Zovirax) 400 mg PO BID [facility] Stop: 10/13/19 20:59 Last Admin: 09/14/19 09:54 Dose: 400 mg Documented by: Al Hydrox/Mg Hydrox/Simethicone (Maalox) 15 ml PO Q4H PRN PRN Reason: Dyspepsia Stop: 10/13/19 16:35 Albuterol (Duoneb) 3 ml NEB QIDR [facility] Stop: 10/13/19 18:59 Last Admin: 09/14/19 14:58 Dose: 3 ml Documented by: Allopurinol (Zyloprim) 100 mg PO QAM [facility] Stop: 10/14/19 08:59 Last Admin: 09/14/19 09:54 Dose: 100 mg Documented by: Dextrose (Dextrose 50%) 25 - 50 ml IV UD PRN; Protocol PRN Reason: Hypoglycemia Protocol Stop: 10/13/19 16:35 Fluconazole (Diflucan) 100 mg PO QAM [facility] Stop: 10/14/19 08:59 Last Admin: 09/14/19 09:54 Dose: 100 mg Documented by: Glucagon (Glucagen) 1 mg SQ UD PRN; Protocol PRN Reason: Hypoglycemia Protocol Stop: 10/13/19 16:35 Glucose (Dex4 Glucose) 4 - 8 tabs PO UD PRN; Protocol PRN Reason: Hypoglycemia Protocol Stop: 10/13/19 16:35 Glucose (Glucose 40%) 15 - 30 gm PO UD PRN; Protocol PRN Reason: Hypoglycemia Protocol Stop: 10/13/19 16:35 Heparin Sodium (Porcine) (Heparin Sod 100 Unit/Ml Flush) 5 ml FLUSH PRN PRN PRN Reason: Flush Stop: 10/14/19 00:45 Diltiazem HCl 125 mg/ Dextrose 125 mls @ 5 mls/hr IV .Q24H [facility]; Protocol Stop: 10/13/19 12:29 Last Admin: 09/14/19 13:53 Dose: Not Given Documented by: Acetaminophen (Ofirmev) 1,000 mg in 100 mls @ 400 mls/hr IV Q8H PRN PRN Reason: Fever Stop: 09/16/19 16:42 Cefepime HCl 2,000 mg/ Syringe 20 mls @ 5 mls/min IV Q8H [facility]ISA; Protocol Stop: 09/20/19 20:59 Last Admin: 09/14/19 14:15 Dose: 5 mls/min Documented by: Vancomycin HCl 1,250 mg/ (Sodium Chloride) 275 mls @ 125 mls/hr IV Q12H [facility] Stop: 09/21/19 05:59 Last Infusion: 09/14/19 08:07 Dose: Infused Documented by: Lorazepam (Ativan) 0.25 mg in 0.5 mls @ 0.5 mls/min IV Q6H PRN PRN Reason: anxiety or shortness of breath Stop: 10/14/19 14:25 Lorazepam (Ativan) 0.5 mg PO Q4H PRN PRN Reason: Anxiety Stop: 10/14/19 16:26 Magnesium Hydroxide (Milk Of Magnesia) 30 ml PO Q12H PRN PRN Reason: Constipation Stop: 10/13/19 16:35 Magnesium Oxide (Mag-Ox) 400 mg PO QAM [facility] Stop: 10/14/19 08:59 Last Admin: 09/14/19 09:54 Dose: 400 mg Documented by: Metoprolol Tartrate (Lopressor) 50 mg PO QPM [facility] Stop: 10/13/19 20:59 Last Admin: 09/13/19 20:30 Dose: 50 mg Documented by: Metoprolol Tartrate (Lopressor) 75 mg PO QAM [facility] Stop: 10/14/19 08:59 Last Admin: 09/14/19 09:53 Dose: 75 mg Documented by: Miscellaneous (Carbohydrates For Hypoglycemia) 15 - 30 gm PO UD PRN PRN Reason: Hypoglycemia Protocol Stop: 10/13/19 16:35 Miscellaneous Information (Consult) 1 ea N/A UD PRN PRN Reason: Consult Stop: 10/13/19 15:24 Miscellaneous Information (Cefepime Consult Active) 1 ea N/A UD PRN PRN Reason: Consult Stop: 10/13/19 16:35 Morphine Sulfate (Morphine Sulfate) 2 mg IV Q2H PRN PRN Reason: Shortness Of Breath Stop: 09/28/19 14:54 Morphine Sulfate (Roxanol) 5 mg PO Q1H PRN PRN Reason: pain or shortness of breath Stop: 09/28/19 16:25 Multivitamins (Multivitamin Tab) 1 tab PO QAM [facility] Stop: 10/14/19 08:59 Last Admin: 09/14/19 10:17 Dose: Not Given Documented by: Ondansetron HCl (Zofran) 4 mg IV Q6H PRN PRN Reason: Nausea Stop: 10/13/19 16:35 Pantoprazole Sodium (Protonix) 40 mg PO BID [facility] Stop: 10/13/19 20:59 Last Admin: 09/14/19 09:54 Dose: 40 mg Documented by: Polyethylene Glycol (Miralax Powder Packet) 17 gm PO DAILY PRN PRN Reason: Constipation Stop: 10/13/19 16:35 Rosuvastatin Calcium (Crestor) 10 mg PO HS [facility] Stop: 10/13/19 20:59 Last Admin: 09/13/19 20:31 Dose: 10 mg Documented by: (1) AML (acute myeloblastic leukemia) Leukemia Active/Remission status: without remission Qualified Code(s): C92.00 - Acute myeloblastic leukemia, not having achieved remission
--- NOTE | 2019-09-14 17:20 | Discharge Summary ---
Date of Service September 14, 2019 Admission HPI Per Admitting Provider This is an 84-year-old male who has significant past medical history of chronic atrial fibrillation anticoagulated on warfarin, HTN, HLD, diet-controlled T2DM, history of lung cancer status post resection, history of prostate cancer, pulmonary fibrosis, MDS with excess blast diagnosed in 03/2018 who presents to ED at the referral of his column precaster secondary to worsening shortness of breath x2 weeks. He is followed by Dr. Rose secondary to active MDS with excess blasts. He was diagnosed in 03/2018 in which he was receiving decitabine x3 days every 4 weeks. Treatment started 11/11/2018. His last treatment was 08/31 to 09/02. He has had minimal treatments over the past several weeks secondary to pancytopenia cyst, specifically neutropenia. He continued to be neutropenic but on 08/31 underwent decitabine therapy due to worsening progression of cancer. At that time it was determined either undergoing chemotherapy versus symptom management, and family underwent chemotherapy. Since sx started over the past 2- 3 days symptoms have significantly got worse including SOB at rest, RIOS, hemoptysis, chest pain with coughing or exertion, fever, nausea, and decreased appetite. Approx 1 week ago he did have abdominal pain and constipation but this has since subsided. Denies chills, sweats, lightheaded, dizziness, n/v/d, dysuria, increased urg/freq with urination, melena and hematochezia. is at bedside and is aware of pt critical state and failing chemo. Goal is to get patient stabilized to return to home with palliative care. He did receive 2 blood transfusions in the past 2 weeks and was due for another tomorrow; however he did have itching after transfusion and said he didn't tolerate well. He hasn't monitored weight lately; although no lower ext edema, orthopnea or PND. In ED patient presented in rapid atrial fibrillation with rates 150s to 160s, febrile at 40.0 Celsius and hypoxic requiring 3 to 4 L of O2 via NC. Lab work notable for significant leukocytosis 52.97K with predominant lymp hocytes and neutropenia. He also has evidence of excess blast. He is otherwise pancytopenic with a stable H&H of 9.3 and 26.7, platelet count 73, sodium 131, BUN 15, creatinine 0.83, glucose 122, lactic acid 1.35, proBNP 3669, troponin WNL. Urinalysis negative for infection. COVID-19 negative. Chest x-ray concerning for cardiomegaly with progressively worsening mixed interstitial and alveolar opacities consistent with multifocal pneumonia or pulmonary edema. He was started on diltiazem bolus and drip secondary to A. fib with RVR, received IV fluid and IV cefepime while in ED. Principal Diagnosis Acute respiratory failure with hypoxia: Neutropenic sepsis: Pneumonia Myelodysplastic syndrome Pulmonary fibrosis Hypertension Discharge Exam Eyes PERRL, conjunctivae normal, anicteric sclerae ENMT external ear and nose normal, oropharynx normal Neck normal visual inspection Respiratory able to speak in complete sentences tachypneic with labored breathing Cardiovascular Rate/Rhythm: + tachycardic and + irregularly irregular Gastrointestinal (Abdomen) normal bowel sounds, soft, nontender, no hepatosplenomegaly Musculoskeletal Head/Neck/Chest: normocephalic and head atraumatic Neurologic PERRL, EOMI, accommodation nl, no face palsy, no dysarthria moves all extremities Psychiatric A+Ox3, euthymic affect Discharge Data Allergies Allergy/AdvReac Type Severity Reaction Status Date / Time No Known Allergies Allergy Verified 09/13/19 13:31 Consultations 09/13/19 12:40 ED Decision to Admit Stat 09/13/19 16:36 Consult Case Management - Discharge Planning Routine 09/14/19 10:23 Consult Palliative Care Routine 09/14/19 10:35 Consult Cardiology Routine Ordered Studies 09/13/19 15:07 CT abd pelvis wo con Stat Hospital Course (1) Acute respiratory failure with hypoxia: (2) Neutropenic sepsis: (3) Pneumonia: -as per admission 09/14/2019 notes "This is an 84-year-old male who has significant past medical history of chronic atrial fibrillation anticoagulated on warfarin, HTN, HLD, diet-controlled T2DM, history of lung cancer status post resection, history of prostate cancer, pulmonary fibrosis, MDS with excess blast diagnosed in 03/2018 who presents to ED at the referral of his column precaster secondary to worsening shortness of breath x2 weeks. In ED patient presented in rapid atrial fibrillation with rates 150s to 160s, febrile at 40.0 C and hypoxic requiring 3 to 4 L of O2 via NC. Lab work notable for significant leukocytosis 52.97K with predominant lymphocytes and neutropenia. He also has evidence of excess blast. He is otherwise pancytopenic with a stable H&H of 9.3 and 26.7, platelet count 73, sodium 131, BUN 15, creatinine 0.83, glucose 122, lactic acid 1.35, proBNP 3669, troponin WNL. Urinalysis negative for infection. COVID-19 negative. Chest x-ray concerning for cardiomegaly with progressively worsening mixed interstitial and alveolar opacities consistent with multifocal pneumonia or pulmonary edema. He was started on diltiazem bolus and drip secondary to A. fib with RVR, received IV fluid and IV cefepime while in ED." -has been on empiric IV antibiotics vancomycin and cefepime and follow the blood cultures. continue acyclovir and Diflucan given neutropenic. -intermittent Lasix and ativan and morphine have been giving and patient and family wanting home with hospice as patient's breathing not getting better. discharge to home with hospice. patient on high amount of supplementary oxygen and case operator made the arrangements for oxygen use at home discharge medications sent electronically to [address] of roxanol 5 mg (0.25 ml) every 1 hours as needed for shortness of breath and ativan 0.5 every 4 hours as needed for anxiety as patient currently in acute respiratory failure. also sent scopalamine patch for secretions (4) Myelodysplastic syndrome: -MDS with excessive blast type 2 - follows Dr. Raciel Rose -last treatment 08/31-09/02 decitabine -Continues to be neutropenic and otherwise pancytopenic -recent outpatient PRBC transfusions without improvement -Patient reports that he is giving up on chemotherapy and wishes home hospice services when he returns home. However in regards to goals of care discussions with his Noni ([phone]) and daughter Terrie (her cell is [phone] and they want her to be the main field contact technician because she is a oncology nurse) and they would like hospitalist team to treat medically the issues of infection and heart rate control as usual standard of care while allowing for palliative care consult to be involved to help with home hospice needs. (5) Pulmonary fibrosis: As above (6) Atrial fibrillation with RVR: -Patient with chronic Atrial fibrillation anticoagulated on warfarin and rate controlled on metoprolol as outpatient, presented in afib with RVR -will try to transition patient off Diltiazem IV ip to home oral medication of metoprolol tartrate as 75 mg AM and 50 mg qPM but may need increasing Beta bl ockers and his family permits cardiology consult to assist with heart rate control -INR is 3.1 on admission of 09/15/2019 and coumadin held, INR is 3.1 on 09/14/2019, continue to hold coumadin for now (his home dose is usually warfarin 5mg fri/fri and 2.5mg all other days; note that patient is on Diflucan currently and this can raise INR) (7) Hypertension: -off home dose hold lisinopril to avoid hypotension -40 mg IV Lasix x 1 given on 09/14/2019 because of admission IV fluid volume that was given (8) HLD (hyperlipidemia): -hold home dose crestor for now (9) T2DM (type 2 diabetes mellitus): -diet controlled t2dm, last a1c 6.7 on 12/2018 -HbA1c 6.9 on this admission (10) DVT prophylaxis: -INR is 3.1 on admission of 09/15/2019 and coumadin held, INR is 3.1 on 09/14/2019 Total Time Total Time Spent Total Time Spent (In Minutes): 40 minutes Total Time Includes: Examination of the Patient, Discharge Planning, Medication Reconciliation and Communication With Other Providers Discharge Plan Discharge Items Patient Disposition: Hospice - Home Reason For Visit: SEPSIS,ACUTE HYPOXIC RESP FAILURE,NEUTROPENIC FEVE Discharge Diagnosis: Acute respiratory failure with hypoxia: Neutropenic sepsis: Pneumonia Myelodysplastic syndrome Pulmonary fibrosis Hypertension Condition on Discharge: Serious Activity: Per Instructions section Non-emergency contact: Primary Care Provider Call non-emergency contact if: you have any medication questions Follow-up/Referrals: Atul Nance MD [Primary Care Provider] - Diet: Carb Consistent or DM2 Addtl Attending Provider Instructions: patient's family and patient requesting for discharge to home with hospice discharge medications sent electronically to [address] of roxanol 5 mg (0.25 ml) every 1 hours as needed for shortness of breath and ativan 0.5 every 4 hours as needed for anxiety as patient currently in acute respiratory failure. also sent scopalamine patch for secretions Pending Studies at Discharge: No Stand-Alone Forms: My [employer] Medications and NH Order Prescriptions: New lorazepam 0.5 mg Tablet 0.5 mg PO Q4H PRN (Reason: anxiety) 4 Days Qty: 16 RF: 0 morphine concentrate 100 mg/5 mL (20 mg/mL) Solution 5 mg PO Q1H PRN (Reason: dyspnea) 4 Days Qty: 100 RF: 0 scopolamine base 1 mg over 3 days patch 3 day 1 patch TD Q72H PRN (Reason: nausea and vomiting) 30 Days Qty: 10 RF: 0 Continued multivitamin Tablet 1 tab PO QAM RF: 0 allopurinol 100 mg Tablet 100 mg PO QAM RF: 0 pantoprazole [Protonix] 40 mg Tablet,Delayed Release (Dr/Ec) 40 mg PO BID RF: 0 metoprolol tartrate 50 mg Tablet 50 mg PO QPM RF: 0 lisinopril 5 mg Tablet 5 mg PO QAM RF: 0 furosemide 20 mg Tablet 20 mg PO DAILY RF: 0 magnesium oxide 400 mg Capsule 400 mg PO QAM RF: 0 metoprolol tartrate 75 mg Tablet 75 mg PO QAM RF: 0 aspirin 81 mg Tablet,Delayed Release (Dr/Ec) 81 mg PO DAILYBD RF: 0 Discontinued warfarin 5 mg Tablet 5 mg PO MOWE Qty: 0 RF: 0 potassium chloride 10 mEq Capsule, Extended Release 10 meq PO DAILY PRN (Reason: Fluid Retention) RF: 0 warfarin 5 mg Tablet 2.5 mg PO SUTUTHFRSA RF: 0 rosuvastatin 10 mg Tablet 10 mg PO HS RF: 0 fluconazole 100 mg Tablet 100 mg PO QAM RF: 0 acyclovir 400 mg Tablet 400 mg PO BID RF: 0 amoxicillin-pot clavulanate 875-125 mg Tablet 1 tab PO BID RF: 0 decitabine [Dacogen] 50 mg Recon Soln 50 mg IV UD RF: 0 Discharge Orders: Discharge Order (Routine); Ordered 09/14/19 Ordered By: Alberto Larsen/Other Patient Handouts: Managing Type 2 Diabetes, A1C Admission Data Admit Date/Time: 09/13/19 14:40 Attending Provider: Alberto Mccoy Admit Provider: Praveena Avilez I. Primary Care Provider: Atul Nance Other Providers: Praveena Avilez I. ; Mary Rdz ; Abhijeet Mcmullen
[2019-09-15] MEDS ORDERED: VANCOMYCIN TROUGH ONE (05:30)
== END 2019-09-14 19:55 | disposition hospice, home (50) | DRG 871 ==
LOC: ED 11:08 → 1E 14:40 → SUATTDRO 14:40 → 1E 15:05